=== PATIENT | male | born 1945 | race Caucasian/White ===

== ENCOUNTER 2017-04-23 19:20 | Emergency (ER) | payer MEDICARE, BC ==
[~2017-04-23] VITALS: Ht 172.7 cm; Wt 67.3 kg
[2017-04-23 19:30] VITALS: BP 174/115; PULSE 75; RESP 20; TEMP 97.1
[2017-04-23 19:32] VITALS: Ht 172.7 cm; Wt 67.3 kg
--- NOTE | 2017-04-23 19:42 | ERD ---
ER Documentation Chief Complaint Chief Complaint SOB HPI This is a 71-year-old male with a past medical history of Parkinson's plus syndrome and multisystem atrophy who is presenting with shortness of breath, cough, congestion for several days. The patient does have a history of recurrent infectious bronchitis requiring antibiotic therapy. He does have a nebulizer at home to help with his respirations. The nebulized treatments were attempted at home without significant relief, which is what prompted the family to bring the patient in for further evaluation. The patient and his caregiver do not endorse any fever or chills or myalgias. The patient does have chronic pain, but he refuses narcotic pain medication. Secondary to his disease process , he does have dysphagia status post G-tube placement. He receives CDP oil via the G-tube. The patient is also unable to void on his own and has a suprapubic catheter. There is no obvious evidence of soft tissue or skin infection around the sites. ROS All systems reviewed and are negative except as per history of present illness. Medications Home Meds Reported Medications Aspirin* (Aspirin* EC) 81 Mg Tablet.dr, 81 MG PO DAILY, TAB 04/23/17 Simvastatin* (Zocor*) 10 Mg Tablet, 10 MG PO QHS, #30 TAB 04/23/17 Entacapone* (Entacapone*) 200 Mg Tablet, 200 MG PO QID, TAB TAKE QID WITH CARBIDOPA/LEVODOPA 04/23/17 Carbidopa/Levodopa (CARBIDOPA-LEVO 25-100 MG ODT) 1 Each Tab.rapdis, 2 TAB PO QID, #120 TAB take 2+1/2 tab-10am, 2tab-2pm, 2+1/2 tab-6pm, 2tab-10pm 04/23/17 Allergies Allergies: Coded Allergies: clonidine (Verified Allergy, Unknown, 04/23/17) PMhx/Soc History of Surgery: Yes (G tube, Suprapubic catheter, back surgery) Anesthesia Reaction: No Hx Neurological Disorder: Yes (Parkinson's plus disease, Multi-system atrophy) Hx Cardiac Disorders: No Hx Psychiatric Problems: No Hx Miscellaneous Medical Probl: No Hx Alcohol Use: No Hx Substance Use: Yes (CBD oil for pain management) Hx Tobacco Use: No FmHx Family History: No coronary disease, No diabetes Physical Exam Vitals Vital Signs Date Time Temp Pulse Resp B/P Pulse Ox O2 Delivery O2 Flow Rate FiO2 04/23/17 20:45 96 2.0 04/23/17 20:44 89 22 96 2.0 04/23/17 19:32 97.7 92 24 167/127 100 04/23/17 19:30 Nasal Cannula 3.0 04/23/17 19:30 Nasal Cannula 3 04/23/17 19:30 97.1 75 20 174/115 94 Room Air Physical Exam Const: No apparent distress, well-developed, well-nourished Head: Normocephalic, Atraumatic Eyes: Normal Conjunctiva. Extraocular movements intact. Pupils equal, round and reactive to light ENT: Normal External Ears, Nose and Mouth. Chronic spasm of his masseter muscles, so oropharynx could not be evaluated. Neck: Full range of motion. No meningismus. Resp: Coarse breath sounds bilaterally, no hypoxia, no tachypnea. no wheezes or rales. Cardio: Regular rate and rhythm. No murmurs, rubs or gallops Abd: Soft, non tender, non distended. Normal bowel sounds. G-tube and suprapubic catheter placement without evidence of infection. No erythema or induration or purulence or fluctuance around the sites. Skin: No petechiae or rashes. Back: No midline tenderness. No CVA tenderness. Ext: No cyanosis, or edema. Neur: Awake and alert. No facial droop. Spastic paresis of all extremities. Result Diagram: 04/23/17205404/23/172054 Results 24 hrs Laboratory Tests Test 04/23/17 20:55 White Blood Count 10.910^3/ul Red Blood Count 4.9910^6/ul Hemoglobin 16.4g/dl Hematocrit 48.3% Mean Corpuscular Volume 96.8fl Mean Corpuscular Hemoglobin 32.9pg Mean Corpuscular Hemoglobin Concent 34.0g/dl Red Cell Distribution Width 13.1% Platelet Count 30620^3/UL Mean Platelet Volume 10.1fl Neutrophils % 88.1% Lymphocytes % 5.3% Monocytes % 4.6% Eosinophils % 1.6% Basophils % 0.2% Nucleated Red Blood Cells % 0.0/100WBC Neutrophils # 9.610^3/ul Lymphocytes # 0.610^3/ul Monocytes # 0.510^3/ul Eosinophils # 0.210^3/ul Basophils # 0.010^3/ul Nucleated Red Blood Cells # 0.010^3/ul Prothrombin Time 13.1Sec Prothrombin Time Ratio 1.0 INR International Normalized Ratio 0.98 Activated Partial Thromboplast Time 32.4Sec Sodium Level 142mmol/L Potassium Level 4.0mmol/L Chloride Level 96mmol/L Carbon Dioxide Level 38mmol/L Anion Gap 12 Blood Urea Nitrogen 20mg/dl Creatinine 0.67mg/dl Glucose Level 102mg/dl Calcium Level 9.5mg/dl Troponin I < 0.012ng/ml Current Medications Medications (Trade) Dose Ordered Sig/Diane Route PRN Reason Start Time Stop Time Status Last Admin Dose Admin Sodium Chloride (NS) 1,000 ml @ 1,000 mls/hr Q1H STAT IV 04/23/17 20:00 04/23/17 20:59 DC 04/23/17 20:00 Ipratropium [place] (Atrovent 0.02% (Neb)) 1.5 mg ONCE STAT INH 04/23/17 20:00 04/23/17 20:02 DC 04/23/17 20:43 Albuterol 15 mg 15 mg ONCE STAT INH 04/23/17 20:00 04/23/17 20:02 DC 04/23/17 20:43 Azithromycin (Zithromax 500mg/ NS (Pmx)) 250 ml @ 250 mls/hr ONCE ONCE IVPB 04/23/17 23:30 04/24/17 00:29 Procedures/MDM MDM The patient's presentation warrants further investigation. The patient has a history of recurrent bronchitis this is certainly a possibility today. The patient is afebrile. He is not tachycardic or tachypneic or hypoxic. The patient does have coarse breath sounds bilaterally, but there is no focality to his exam. This is reassuring. I do not hear obvious wheezing, but the patient may benefit from nebulized albuterol and ipratropium. I will evaluate for an infectious etiology. The patient is not ambulatory at baseline, but his exam and vital signs are not consistent with pulmonary embolism. I have decreased suspicion for this at this time. LABS The patient's blood work was obtained and reviewed. The patient's CBC shows mild leukocytosis and left shift. The patient is afebrile and does not appear systemically ill. I do not suspect a systemic infection. That said, I am still suspicious of an infectious etiology of his symptoms. The patient is not anemic today. The patient's platelet count is unremarkable. The patient's BMP shows no signs of metabolic or electrolyte emergencies. The patient does have a metabolic alkalosis, likely compensatory to respiratory acidosis from his chronic pulmonary comorbidities. The patient has unremarkable renal function testing. The patient's troponin is negative. EKG EKG read by me: Rate/Rhythm: Regular rate and rhythm at a rate of 90bpm Intervals: Normal OH interval and QTc. Prolonged QRS duration with evidence of a right bundle branch block. [place]: Normal Impression: Nonspecific repolarization changes without evidence of acute STEMI. Right bundle branch block. IMAGING CXR FINDINGS: The heart is normal in size. There are low lung volumes with mild bibasilar subsegmental atelectasis. No focal consolidation, pleural effusions, or pneumothorax is seen. Degenerative changes of the spine and shoulder joints are present. IMPRESSION: Low lung volumes with mild bibasilar subsegmental atelectasis. Electronically viewed and signed by Nba Neves Physician on 04/23/2017 20:54 TREATMENT/DISPOSITION I am suspicious of bronchitis versus atypical pneumonia in this patient. I do intend to treat as he does have a tendency for recurrence of infectious pulmonary symptoms. The patient has significant comorbidities that increase the risk of severe illness. I also intend to fill a prescription for azithromycin to be taken as prescribed as well as albuterol that the patient may take as needed at home for shortness of breath or wheezing. I discussed with the family the possibility of admission. The patient is chronically ill and is serially evaluated by palliative care. The family would like him to go home as it is more comfortable for him there. She had decision-making was enacted, and I felt that it was okay for the patient to go home with close follow-up. The patient will see his primary care doctor tomorrow morning. At this time, I feel the patient stable for discharge. The patient will be given strict precautions with which to return to the emergency department. The patient's blood pressure was elevated at greater than 120/80 while in the emergency department. The patient was otherwise stable with no evidence of hypertensive urgency or emergency or end organ damage. The patient does not require admission for blood pressure control. I have discussed with the patient the risks of hypertension. I have advised the patient to follow up with the primary care physician for outpatient monitoring and treatment for hypertension in 2-3 days. I have instructed the patient to return to the ER for any new or worsening symptoms including chest pain, shortness of breath, headache, blurred vision, confusion, nausea, vomiting or LOC. Disclaimer: Inadvertent spelling and grammatical errors are likely due to EHR/ dictation software use and do not reflect on the overall quality of patient care. Note that the electronic time recorded on this note does not necessarily reflect the actual time of the patient encounter. Departure Diagnosis: Primary Impression: Bronchitis Additional Impressions: Shortness of breath Elevated blood pressure reading Metabolic alkalosis Condition: Stable ROBERT MORENO MD Apr 23, 2017 19:42
[2017-04-23] MEDS ORDERED: ALBUTEROL 0.5% (NEB) 2.5 MG/0.5 ML AMP INH STA (20:00)
[2017-04-23] MEDS ORDERED: SOD CHLORIDE 0.9% 1,000 ML IV STA (20:00)
[2017-04-23] MEDS ORDERED: IPRATROPIUM (NEB) 0.5 MG/2.5 ML AMP INH STA (20:00)
[2017-04-23] MEDS ORDERED: CARB1TAB46 PO (20:50)
[2017-04-23] MEDS ORDERED: ENTA200T2 PO (20:51)
[2017-04-23] MEDS ORDERED: ASPI-664 PO (20:52)
[2017-04-23] MEDS ORDERED: SIMV10TA PO (20:52)
--- NOTE | 2017-04-23 20:54 | RADRPT ---
PROCEDURE: XR Chest. CLINICAL INDICATION: Shortness of breath. TECHNIQUE: Single frontal view of the chest was obtained COMPARISON: None FINDINGS: The heart is normal in size. There are low lung volumes with mild bibasilar subsegmental atelectasis. No focal consolidation, ple ural effusions, or pneumothorax is seen. Degenerative changes of the spine and shoulder joints are present. IMPRESSION: 1. Low lung volumes with mild bibasilar subsegmental atelectasis. RPTAT:AAJJ Physician Pamela Date Time Electronically viewed and signed by Nba Neves Physician on 04/23/2017 20:54 QL/
[2017-04-23 21:15] LABS: ABNORMAL IP MESSAGE 1; BASOPHILS % 0.2 % (0.0-2.0); EOSINOPHILS # 0.2 10^3/ul (0.0-0.5); EOSINOPHILS % 1.6 % (0.0-7.0); HEMATOCRIT 48.3 % (42.0-52.0); HEMOGLOBIN 16.4 g/dl (14.0-18.0); LYMPHOCYTES # 0.6 10^3/ul (0.8-2.9); LYMPHOCYTES % 5.3 % (15.0-51.0); MEAN CORPUSCULAR HEMOGLOBIN 32.9 pg (29.0-33.0); MEAN CORPUSCULAR VOLUME 96.8 fl (82.0-101.0); MEAN PLATELET VOLUME 10.1 fl (7.4-10.4); MONOCYTE # 0.5 10^3/ul (0.3-0.9); MONOCYTES % 4.6 % (0.0-11.0); NEUTROPHIL # 9.6 10^3/ul (1.6-7.5); NEUTROPHILS % 88.1 % (39.0-77.0); PLATELET COUNT 172 10^3/UL (140-415); POSITIVE DIFF @See below; RED BLOOD COUNT 4.99 10^6/ul (4.70-6.10); RED CELL DISTRIBUTION WIDTH 13.1 % (11.5-14.5); WHITE BLOOD COUNT 10.9 10^3/ul (4.8-10.8)
[2017-04-23 21:39] LABS: INR 0.98; PROTIME 13.1 Sec (11.9-14.9)
[2017-04-23 21:40] LABS: PARTIAL THROMBOPLASTIN TIME 32.4 Sec (25.0-35.0)
[2017-04-23 21:42] LABS: ANION GAP 12 (8-16); BLOOD UREA NITROGEN 20 mg/dl (7-20); CALCIUM 9.5 mg/dl (8.4-10.2); CARBON DIOXIDE 38 mmol/L (21-31); CHLORIDE 96 mmol/L (97-110); CREATININE 0.67 mg/dl (0.61-1.24); GLUCOSE 102 mg/dl (70-220); SODIUM 142 mmol/L (135-144)
[2017-04-23 22:03] LABS: TROPONIN-I < 0.012 ng/ml (0.00-0.12)
[2017-04-23] MEDS ORDERED: AZITHROMYCIN 500MG/NS (PMX) 250 ML IVPB ONE (23:30)
[2017-04-23] MEDS ORDERED: AZIT250T94 PO (23:39)
[2017-04-23] MEDS ORDERED: ALBU2.5V3 NEB (23:39)
== END 2017-04-24 00:30 | disposition home or self-care (01) ==
LOC: E/R 19:20
DX: J40 Bronchitis, not specified as acute or chronic (principal); E87.3 Alkalosis; R03.0 Elevated blood-pressure reading, without diagnosis of hypertension; G20 Parkinson's disease; Z79.82 Long term (current) use of aspirin
CPT/HCPCS: 36415; 71010; 80048; 84484; 85025; 85610; 85730; 87040; 93005; 94644; 96374; 99285; J0456; J7030

== ENCOUNTER 2017-04-25 13:02 | Inpatient (IN) | END 2017-05-02 16:34 | disposition home health service (06) | DRG 871 ==

== ENCOUNTER 2018-07-17 14:56 | Inpatient (IN) | payer MEDICARE, BC ==
[~2018-07-17] VITALS: Ht 172.7 cm; Wt 67.9 kg
[~2018-07-17 14:56] MED LIST: ALBU2.5V3 NEB; ASC500 NGT; ASPI-817 PO; CARB1TAB46 PO; ENTA200T2 PO; FAMO20TA18 GTB; LISI10TA2 PO; POLY17PO6 GTB; SIMV10TA PO; UDFER GTB
[2018-07-17] MEDS ORDERED: ALBUTEROL 0.083% (NEB) 2.5 MG/3 ML AMP HHN STA (15:45)
[2018-07-17] MEDS ORDERED: IPRATROPIUM (NEB) 0.5 MG/2.5 ML AMP HHN ONE (16:00)
[2018-07-17] MEDS ORDERED: ASPI-817 GTB (17:23)
[2018-07-17] MEDS ORDERED: CARB1TAB46 GTB (17:23)
[2018-07-17] MEDS ORDERED: ENTA200T2 GTB (17:24)
[2018-07-17] MEDS ORDERED: ALBU2.5V3 NEB (17:26)
[2018-07-17] MEDS ORDERED: GLYC1TAB GTB (17:27)
[2018-07-17] MEDS ORDERED: BACL10TA GTB (17:29)
[2018-07-17] MEDS ORDERED: POLY17PO6 GTB (17:30)
[2018-07-17] MEDS ORDERED: ONDANSETRON 4 MG INJ IV PRN (17:30)
[2018-07-17] MEDS ORDERED: ACETAMINOPHEN 325 MG TAB PO PRN (17:30)
[2018-07-17] MEDS ORDERED: IBUP-1982 GTB (17:31)
[2018-07-17] MEDS ORDERED: ROTI1PAT7 TD (17:31)
[2018-07-17] MEDS ORDERED: VITAMIN C GTB (17:33)
--- NOTE | 2018-07-17 17:59 | HP ---
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 respiratory failure who presents with resipratory distress and hypoxia - We will obtain CT to further assess whether pneumonia is present or not - I suspect this is from aspiration, needs frequent suctioning and chest PT - Will start zosyn and steroids for now -- BIPAP for chornic respiratory failure - Pulmonary consult - Tube feeds DNR/DNI Result Diagram: 07/17/18 1555 07/17/18 1555 Results 24hrs Laboratory Tests Test 07/17/18 15:39 07/17/18 15:55 07/17/18 16:20 POC Venous Lactate 1.3 White Blood Count 8.3 Red Blood Count 4.48 L Hemoglobin 14.2 Hematocrit 43.2 Mean Corpuscular Volume 96.4 Mean Corpuscular Hemoglobin 31.7 Mean Corpuscular 32.9 Hemoglobin Concent Red Cell Distribution Width 13.5 Platelet Count 255 # Mean Platelet Volume 11.4 H Immature Granulocytes % 0.400 Neutrophils % 82.2 H Lymphocytes % 8.4 L Monocytes % 6.3 Eosinophils % 2.2 Basophils % 0.5 Nucleated Red Blood Cells % 0.0 Immature Granulocytes # 0.030 Neutrophils # 6.8 Lymphocytes # 0.7 L Monocytes # 0.5 Eosinophils # 0.2 Basophils # 0.0 Nucleated Red Blood Cells # 0.0 Prothrombin Time 12.8 Prothrombin Time Ratio 1.0 INR International 0.95 Normalized Ratio Activated Partial Thromboplast 34.3 Time Sodium Level 141 Potassium Level 4.1 Chloride Level 99 Carbon Dioxide Level 36 H Anion Gap 6 Blood Urea Nitrogen 19 Creatinine 0.56 L Est Glomerular Filtrat Rate mL/min Glucose Level 110 Calcium Level 9.6 Total Bilirubin 0.5 Direct Bilirubin 0.00 Indirect Bilirubin 0.5 Aspartate Amino 42 Transf (AST/SGOT) Alanine 13 Aminotransferase (ALT/SGPT) Alkaline Phosphatase 183 H Troponin I < 0.012 Total Protein 7.3 Albumin 4.0 Globulin 3.30 H Albumin/Globulin Ratio 1.21 Urine Color AURA Urine Clarity SLIGHTLY CLOUDY A Urine pH 5.0 Urine Specific [place] 1.032 H Urine Ketones TRACE A Urine Nitrite NEGATIVE Urine Bilirubin NEGATIVE Urine Urobilinogen NEGATIVE Urine Leukocyte Esterase 1+ H Urine Microscopic RBC 69 H Urine Microscopic WBC 69 H Urine Bacteria FEW A Urine Hyaline Casts FEW A Urine Mucus MANY A Urine Hemoglobin NEGATIVE Urine Glucose NEGATIVE Urine Total Protein 2+ H HPI/ROS Admit Date/Time Admit Date/Time Hx of Present Illness 72 yo male with 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 Fed via PEG. Family and caregivers noticed worsening breathing todya. Also have noticed worsenign hypoxia on home pulse ox. 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 They deny fevers. He is producing some phlegm. Scant hemotypsis as well. ROS Constitutional: no complaints, improved Eyes: no complaints ENT: no complaints Respiratory: no complaints Cardiovascular: no complaints Gastrointestinal: no complaints Genitourinary: no complaints Musculoskeletal: no complaints Skin: no complaints Neurologic: no complaints Endocrine: no complaints Lymphatic: no complaints Psychological: no complaints, nl mood/affect Immunologic: no complaints PMH/Family/Social Past Medical History Multisystem atrophy Medications Current Medications Ondansetron HCl (Zofran Inj) 4 mg ER BRIDGE PRN IV NAUSEA/VOMITING; Start 07/17/18 at 17:30; Stop 07/18/18 at 17:29 Acetaminophen (Tylenol Tab) 650 mg ER BRIDGE PRN PO .MILD PAIN 1-3 OR TEMP; Start 07/17/18 at 17:30; Stop 07/18/18 at 17:29 Coded Allergies: clonidine (Verified Allergy, Unknown, 07/17/18) Past Surgical History Past Surgical Hx: no surgical history Family History Significant Family History: no pertinent family hx Social History Alcohol Use: none Smoking Status: Former smoker Drug Use: none Exam/Review of Systems Vital Signs Vitals Vital Signs Date Temp Pulse Resp B/P (MAP) Pulse Ox O2 O2 Flow FiO2 Time Delivery Rate 07/17/18 92 20 95 Nasal 3.0 16:15 Cannula 07/17/18 97.1 143/71 14:58 (95) Exam Exam Alert Nonverbal No response to my commands Slightly tachypneic, nonlabored Audibly gurgling his secretions Lungs rhoncorous bilaterally RRR Abdomen with PEG Suprapubic catheter No edema MILGROM,DEVORA K MD Jul 17, 2018 17:59
[2018-07-17] MEDS ORDERED: NACL 0.9% 3 ML SYG IV SCH (18:00)
[2018-07-17] MEDS ORDERED: IOHEXOL 100 ML ONE (18:03)
[2018-07-17] MEDS ORDERED: SOD CHLORIDE 0.9% 100 ML ONE (18:03)
[2018-07-17] MEDS ORDERED: IBUPROFEN 200 MG TAB GTB PRN (18:30)
[2018-07-17] MEDS ORDERED: POLYETHYLENE GLYCOL 17 GM PACKET GTB PRN (18:30)
[2018-07-17] MEDS ORDERED: ALBUTEROL 0.083% (NEB) 2.5 MG/3 ML AMP NEB PRN (18:30)
--- NOTE | 2018-07-17 19:18 | ERD ---
ER Documentation Chief Complaint Chief Complaint sob today HPI Patient is a 72-year-old male with Parkinson's disease and COPD who presents with shortness of breath. Over the past 1 week he has gotten worse and has "rales and crackles". He was recently started on a Z-Lul. He saw Dr. Rivers from pulmonology today and was sent from the office for admission. He is not using home oxygen at night but now is hypoxic and requires supplemental oxygen. He does use BiPAP at night. He has no fevers. He is a DNR/DNI per the family. Upon review of old medical records this is the patient's third visit to the ER since 2017. ROS All systems reviewed and are negative except as per history of present illness. Medications Home Meds Reported Medications [Vitamin C] No Conflict Check, 1000 MG GTB DAILY 07/17/18 Ibuprofen* (Ibuprofen*) 200 Mg Capsule, 800 MG GTB QHS PRN for PAIN, CAP 07/17/18 Rotigotine (NEUPRO) 1 Each Patch.td24, 1 EACH TD DAILY 6MG 07/17/18 Polyethylene Glycol* (Miralax*) 17 Gm Powd.pack, 8.5 GM GTB DAILY PRN for NEEDED, #30 PACKET 07/17/18 Baclofen* (Baclofen*) 10 Mg Tablet, 10 MG GTB TID, TAB TAKE 5MG-QAM AND 5MG-QPM, 15MG-QHS 07/17/18 Glycopyrrolate* (Glycopyrrolate*) 1 Mg Tablet, 1 MG GTB BID, TAB 07/17/18 Albuterol Sulfate* (Albuterol Sulfate* Neb) 0.083%-3 Ml Neb, 2.5 MG NEB Q3H PRN for WHEEZING AND SOB, #30 VIAL 07/17/18 Entacapone* (Entacapone*) 200 Mg Tablet, 200 MG GTB QID, TAB 07/17/18 Aspirin* (Aspirin* EC) 81 Mg Tablet., 81 MG GTB DAILY, TAB 07/17/18 Carbidopa/Levodopa (CARBIDOPA-LEVO 25-100 MG ODT) 1 Each Tab.rapdis, 2.5 TAB GTB BID, #90 TAB 10-AM AND 6-PM 07/17/18 Carbidopa/Levodopa (CARBIDOPA-LEVO 25-100 MG ODT) 1 Each Tab.rapdis, 2 TAB GTB BID, #120 TAB 2-PM AND 10-PM 07/17/18 Discontinued Reported Medications Aspirin* (Aspirin* EC) 81 Mg Tablet.dr, 81 MG PO DAILY, TAB 04/23/17 Simvastatin* (Zocor*) 10 Mg Tablet, 10 MG PO QHS, #30 TAB 04/23/17 Entacapone* (Entacapone*) 200 Mg Tablet, 200 MG PO QID, TAB TAKE QID WITH CARBIDOPA/LEVODOPA 04/23/17 Carbidopa/Levodopa (CARBIDOPA-LEVO 25-100 MG ODT) 1 Each Tab.rapdis, 2 TAB PO QID, #120 TAB take 2+1/2 tab-10am, 2tab-2pm, 2+1/2 tab-6pm, 2tab-10pm 04/23/17 Discontinued Scripts Ascorbic Acid (Vitamin C) 500 Mg Tab, 500 MG NGT DAILY, #30 TAB 2 Refills Prov:MILLICENT MELGAR S. 05/02/17 Polyethylene Glycol* (Miralax*) 17 Gm Powd.pack, 8.5 GM GTB DAILY, #30 2 Refills Prov:MILLICENT MELGAR S. 05/02/17 Famotidine* (Famotidine*) 20 Mg Tablet, 20 MG GTB HS, #30 TAB 2 Refills Prov:MILLICENT MELGAR S. 05/02/17 Ferrous Sulfate (Ferrous Sulfate) 300 Mg/5 Ml Liquid, 300 MG GTB DAILY for 30 Days, 2 Refills Prov:MILLICENT MELGAR S. 05/02/17 Lisinopril* (Lisinopril*) 10 Mg Tablet, 10 MG PO DAILY, #30 TAB 2 Refills Prov:MILLICENT MELGAR S. 05/02/17 Albuterol Sulfate* (Albuterol Sulfate* Neb) 0.083%-3 Ml Neb, 2.5 MG NEB Q4 PRN for SHORTNESS OF BREATH, #30 EA Prov:ROBERT MORENO MD 04/23/17 Allergies Allergies: Coded Allergies: clonidine (Verified Allergy, Unknown, 07/17/18) PMhx/Soc History of Surgery: No Anesthesia Reaction: No Hx Neurological Disorder: Yes (PARKINSONS) Hx Respiratory Disorders: Yes Hx Cardiac Disorders: No Hx Psychiatric Problems: No Hx Miscellaneous Medical Probl: Yes (G-TUBE, Suprapubic catheter) Hx Substance Use: No Smoking Status: Former smoker FmHx Family History: No diabetes Physical Exam Vitals Vital Signs Date Temp Pulse Resp B/P (MAP) Pulse Ox O2 O2 Flow FiO2 Time Delivery Rate 07/17/18 92 20 95 Nasal 3.0 16:15 Cannula 07/17/18 Nasal 2 16:01 Cannula 07/17/18 97.1 87 28 143/71 96 14:58 (95) Physical Exam Const: Moderate distress Head: Atraumatic Eyes: Normal Conjunctiva ENT: Difficulty with opening mouth Neck: Full range of motion. No meningismus. Resp: Rhonchorous sounds diffusely Cardio: Regular rate and rhythm, no murmurs Abd: Soft, non tender, non distended. Normal bowel sounds Skin: Pale skin Back: No midline or flank tenderness Ext: No cyanosis, or edema Neur: Awake but confused Result Diagram: 07/17/18 1555 07/17/18 1555 Results 24 hrs Laboratory Tests Test 07/17/18 15:39 07/17/18 15:55 07/17/18 16:20 POC Venous Lactate 1.3 mmol/L White Blood Count 8.3 10^3/ul Red Blood Count 4.48 10^6/ul Hemoglobin 14.2 g/dl Hematocrit 43.2 % Mean Corpuscular Volume 96.4 fl Mean Corpuscular Hemoglobin 31.7 pg Mean Corpuscular 32.9 g/dl Hemoglobin Concent Red Cell Distribution Width 13.5 % Platelet Count 255 10^3/UL Mean Platelet Volume 11.4 fl Immature Granulocytes % 0.400 % Neutrophils % 82.2 % Lymphocytes % 8.4 % Monocytes % 6.3 % Eosinophils % 2.2 % Basophils % 0.5 % Nucleated Red Blood Cells % 0.0 /100WBC Immature Granulocytes # 0.030 10^3/ul Neutrophils # 6.8 10^3/ul Lymphocytes # 0.7 10^3/ul Monocytes # 0.5 10^3/ul Eosinophils # 0.2 10^3/ul Basophils # 0.0 10^3/ul Nucleated Red Blood Cells # 0.0 10^3/ul Prothrombin Time 12.8 Sec Prothrombin Time Ratio 1.0 INR International 0.95 Normalized Ratio Activated Partial Thromboplast 34.3 Sec Time Sodium Level 141 mmol/L Potassium Level 4.1 mmol/L Chloride Level 99 mmol/L Carbon Dioxide Level 36 mmol/L Anion Gap 6 Blood Urea Nitrogen 19 mg/dl Creatinine 0.56 mg/dl Est Glomerular Filtrat mL/min Rate mL/min Glucose Level 110 mg/dl Calcium Level 9.6 mg/dl Total Bilirubin 0.5 mg/dl Direct Bilirubin 0.00 mg/dl Indirect Bilirubin 0.5 mg/dl Aspartate Amino 42 IU/L Transf (AST/SGOT) Alanine 13 IU/L Aminotransferase (ALT/SGPT) Alkaline Phosphatase 183 IU/L Troponin I < 0.012 ng/ml Total Protein 7.3 g/dl Albumin 4.0 g/dl Globulin 3.30 g/dl Albumin/Globulin Ratio 1.21 Urine Color AURA Urine Clarity SLIGHTLY CLOUDY Urine pH 5.0 Urine Specific [place] 1.032 Urine Ketones TRACE mg/dL Urine Nitrite NEGATIVE mg/dL Urine Bilirubin NEGATIVE mg/dL Urine Urobilinogen NEGATIVE mg/dL Urine Leukocyte Esterase 1+ [place]/ul Urine Microscopic RBC 69 /HPF Urine Microscopic WBC 69 /HPF Urine Bacteria FEW /HPF Urine Hyaline Casts FEW /HPF Urine Mucus MANY /HPF Urine Hemoglobin NEGATIVE mg/dL Urine Glucose NEGATIVE mg/dL Urine Total Protein 2+ mg/dl Current Medications Medications Dose Sig/Diane Start Time Status Last (Trade) Ordered Route PRN Stop Time Admin Dose Reason Admin Albuterol 5 mg ONCE STAT 07/17/18 DC 07/17/18 (Proventil HHN 15:45 16:12 0.083% (Neb)) 07/17/18 15:46 Ipratropium 0.5 mg ONCE ONCE 07/17/18 DC 07/17/18 [place] HHN 16:00 16:12 (Atrovent 07/17/18 16:01 0.02% (Neb)) Ondansetron 4 mg ER BRIDGE 07/17/18 HCl (Zofran PRN IV 17:30 Inj) NAUSEA/VOMITI 07/18/18 17:29 NG 650 mg ER BRIDGE 07/17/18 Acetaminophen PRN PO 17:30 (Tylenol .MILD PAIN 07/18/18 17:29 Tab) 1-3 OR TEMP IV Flush 3 ml PER 07/17/18 (NS 3 ml) PROTOCOL IV 18:00 Enoxaparin 40 mg DAILY SC 07/18/18 Sodium 09:00 (Lovenox) Piperacillin 100 ml @ Q8 IVPB 07/17/18 Sod/ 200 mls/hr 22:00 Tazobactam Sod 20 mg Q8 IV 07/17/18 Methylprednis 22:00 olone Sodium Succinate (Solu-Medrol) IV Flush 10 ml STK-MED 07/17/18 DC (NS 10 ml) ONCE .ROUTE 18:03 07/17/18 18:04 Sodium 100 ml @ ud STK-MED 07/17/18 DC Chloride ONCE .ROUTE 18:03 07/17/18 18:04 Iohexol 100 ml @ ud STK-MED 07/17/18 DC ONCE .ROUTE 18:03 07/17/18 18:04 Albuterol 2.5 mg Q3H RESP 07/17/18 (Proventil THERAPY PRN 18:30 0.083% (Neb)) NEB WHEEZING AND SOB Baclofen 10 mg TID GTB 07/17/18 (Lioresal) 21:00 Entacapone 200 mg QID GTB 07/17/18 (Comtan) 21:00 1 mg BID GTB 07/17/18 Glycopyrrolat 21:00 e (Robinul) Ibuprofen 800 mg QHS PRN 07/17/18 (Motrin) GTB PAIN 18:30 8.5 gm DAILY PRN 07/17/18 Polyethylene GTB 18:30 Glycol NEEDED (Miralax) 2 tab BID GTB 07/17/18 UNV Miscellaneous 21:00 Information 2.5 tab BID GTB 07/17/18 UNV Miscellaneous 21:00 Information 1 each DAILY TD 07/18/18 UNV Miscellaneous 09:00 Information 2.5 tab 07/18/18 Carbidopa/Lev BID@1000,1800 10:00 odopa GTB (Sinemet (25/ 100)) 2 tab 07/17/18 Carbidopa/Lev BID@1400,2200 22:00 odopa GTB (Sinemet (25/ 100)) Procedures/MDM Chest X-ray 1V Interpreted by me: Soft Tissue: No acute abnormalities Bones: No acute abnormalities Mediastinum/Cardiac Silhouette/Lungs: No pneumonia or pneumothorax EKG read by me: Rate/Rhythm: Right bundle branch block a rate of 90 Intervals: Normal Impression: Bundle branch block without ischemia Patient is a 72-year-old male who presents with hypoxia and hemoptysis. He was found to have acute cystitis as well. There is no obvious sign of pneumonia or pneumothorax but he may need further evaluation while admitted. Spoke with the panel team for admission to a telemetry bed. At this point I doubt sepsis. The patient was given broad-spectrum antibiotics with Vancomycin and cefepime. The patient is a DNR/DNI. Prognosis is poor given his age and comorbidities. Critical Care: Time: 35 minutes excluding all billable procedures. Treatments/Evaluations: Close monitoring and treatment of unstable vital signs, cardiorespiratory, and neurologic status, while maintaining tight balance of fluid, respiratory, and cardiac interventions. Departure Diagnosis: Primary Impression: Cystitis Additional Impressions: Shortness of breath Hemoptysis Hypoxia Condition: Serious HALEY MOORE MD Jul 17, 2018 19:18
[2018-07-17] MEDS ORDERED: CARBIDOPA GTB SCH ×2 (21:00)
[2018-07-17] MEDS: GLYCOPYRROLATE 1 MG TAB GTB SCH (21:00)
[2018-07-17] MEDS ORDERED: BACLOFEN 10 MG TAB GTB SCH (21:00)
[2018-07-17] MEDS ORDERED: [UNRECOGNIZED DRUG - OTHER] GTB SCH (21:00)
[2018-07-17] MEDS ORDERED: LEVODOPA GTB SCH ×2 (21:00)
[2018-07-17 22:00] VITALS: Ht 172.7 cm; Wt 67.9 kg
[2018-07-17 22:17] VITALS: PULSE 96
[2018-07-17 22:30] VITALS: BP 118/66; PULSE 97; RESP 18
[2018-07-17] MEDS: METHYLPREDNISOLONE 40 MG INJ IV SCH (23:44)
[2018-07-17] MEDS: CARBIDOPA/LEVODOPA (25/100) TAB GTB SCH (23:47)
[2018-07-17] MEDS: ENTACAPONE 200 MG TAB GTB SCH (23:47)
[2018-07-18] VITALS (21 sets, daily range): BP systolic 85–122; BP diastolic 54–70; PULSE 61–87; RESP 17–18
[2018-07-18] MEDS: PIPER-TAZO 3.375 GM IV (PMX) 100 ML IVPB SCH ×4 (00:21→21:55)
[2018-07-18] MEDS: IBUPROFEN 800 MG TAB GTB PRN (00:22)
[2018-07-18] MEDS: METHYLPREDNISOLONE 40 MG INJ IV SCH ×3 (05:18→21:53)
[2018-07-18] MEDS ORDERED: PENDING SANTYL ORDER FOR WOUND CARE XX PRN (08:00)
[2018-07-18] MEDS: BACLOFEN 10 MG TAB GTB SCH ×4 (09:00→22:07)
[2018-07-18] MEDS: GLYCOPYRROLATE 1 MG TAB GTB SCH ×2 (09:00→22:06)
[2018-07-18] MEDS: ROTIGOTINE TRANSDERM SCH (09:00)
[2018-07-18] MEDS: CARBIDOPA/LEVODOPA (25/100) TAB GTB SCH ×4 (09:54→21:54)
[2018-07-18] MEDS: ENTACAPONE 200 MG TAB GTB SCH ×4 (09:54→21:55)
[2018-07-18] MEDS: ENOXAPARIN 40 MG/0.4 ML SYG SC SCH (10:14)
--- NOTE | 2018-07-18 12:09 | PN ---
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 who presents with resipratory distress and hypoxia - CT suggests possible bacterial pneumoina will continue zosyn and steroids IV - I suspect this is from aspiration, needs frequent suctioning and chest PT -- BIPAP if needed for chornic hypercpeneic respiratory failure, however this will make aspiration worse - Pulmonary consulted - Tube feeds Multisystems atrophy vs Parkinsons (unclear diagonsis) - continue home meds with entacapone, sinemet DNR/DNI Result Diagram: 07/18/18 0535 07/18/18 0535 Results 24hrs Laboratory Tests Test 07/17/18 15:39 07/17/18 15:55 07/17/18 16:20 07/17/18 21:07 POC Venous 1.3 Lactate White Blood 8.3 Count Red Blood Count 4.48 L Hemoglobin 14.2 Hematocrit 43.2 Mean Corpuscular 96.4 Volume Mean Corpuscular 31.7 Hemoglobin Mean Corpuscular 32.9 Hemoglobin Griselda nt Red Cell 13.5 Distribution Width Platelet Count 255 # Mean Platelet 11.4 H Volume Immature 0.400 Granulocytes % Neutrophils % 82.2 H Lymphocytes % 8.4 L Monocytes % 6.3 Eosinophils % 2.2 Basophils % 0.5 Nucleated Red 0.0 Blood Cells % Immature 0.030 Granulocytes # Neutrophils # 6.8 Lymphocytes # 0.7 L Monocytes # 0.5 Eosinophils # 0.2 Basophils # 0.0 Nucleated Red 0.0 Blood Cells # Prothrombin Time 12.8 Prothrombin Time 1.0 Ratio INR 0.95 International Normalized Ratio Activated 34.3 Partial Thrombop last Time Sodium Level 141 Potassium Level 4.1 Chloride Level 99 Carbon Dioxide 36 H Level Anion Gap 6 Blood Urea 19 Nitrogen Creatinine 0.56 L Est Glomerular Filtrat Rate mL/min Glucose Level 110 Calcium Level 9.6 Total Bilirubin 0.5 Direct Bilirubin 0.00 Indirect 0.5 Bilirubin Aspartate Amino 42 Transf (AST/SGOT ) Alanine 13 Aminotransferase (ALT/SGPT) Alkaline 183 H Phosphatase Troponin I < 0.012 Total Protein 7.3 Albumin 4.0 Globulin 3.30 H Albumin/Globulin 1.21 Ratio Urine Color AURA Urine Clarity SLIGHTLY CLOUDY A Urine pH 5.0 Urine Specific 1.032 H Eagle Urine Ketones TRACE A Urine Nitrite NEGATIVE Urine Bilirubin NEGATIVE Urine NEGATIVE Urobilinogen Urine Leukocyte 1+ H Esterase Urine 69 H Microscopic RBC Urine 69 H Microscopic WBC Urine Bacteria FEW A Urine Hyaline FEW A Casts Urine Mucus MANY A Urine Hemoglobin NEGATIVE Urine Glucose NEGATIVE Urine Total 2+ H Protein Lactic Acid 1.7 Level Test 07/17/18 21:30 07/18/18 05:35 07/18/18 09:15 Blood Gas Blood arterial Blood arterial Specimen Source Arterial Blood 07/17/2018 9:30: 07/18/2018 9:40: Date Drawn 00 PM 07 AM Arterial Blood 7.397 7.383 pH (Temp corrected) Arterial Blood 48.3 H 55.5 H pCO2 (Temp correct) Arterial Blood 59.1 L 49.6 *L pO2 (Temp corrected) Arterial Blood 29.0 H 32.3 H HCO3 Arterial Blood 3.4 H 5.7 H Base Excess Arterial Blood 91.3 L 86.6 L Oxygen Saturatio n Leroy Test ACCEPTAB ACCEPTAB Arterial Blood Left Radial Right Radial Gas Puncture Site Arterial 0.4 0.2 Blood Carboxyhem oglobin Arterial Blood 0.2 0.3 Methemoglobin Blood Gas A-a O2 83.5 H 33.7 H Differential Oxyhemoglobin 90.8 L 86.2 L Percent Blood Gas 37.0 37.0 Temperature Blood Gas NASAL CANNULA ROOM AIR Modality FiO2 28.0 21.0 Blood Gas [facility] Notified Whom Blood Gas 07/17/2018 9:46: 07/18/2018 9:47: Notified Time 27 PM 53 AM White Blood 15.6 #H Count Red Blood Count 4.02 L Hemoglobin 12.7 L Hematocrit 38.7 L Mean Corpuscular 96.3 Volume Mean Corpuscular 31.6 Hemoglobin Mean Corpuscular 32.8 Hemoglobin Griselda nt Red Cell 13.2 Distribution Width Platelet Count 203 # Mean Platelet 10.4 Volume Immature 0.600 H Granulocytes % Neutrophils % 96.5 H Lymphocytes % 1.3 L Monocytes % 1.2 Eosinophils % 0.0 Basophils % 0.4 Nucleated Red 0.0 Blood Cells % Immature 0.100 H Granulocytes # Neutrophils # 15.0 H Lymphocytes # 0.2 L Monocytes # 0.2 L Eosinophils # 0.0 Basophils # 0.1 Nucleated Red 0.0 Blood Cells # Sodium Level 137 Potassium Level 4.7 Chloride Level 99 Carbon Dioxide 33 H Level Anion Gap 5 Blood Urea 19 Nitrogen Creatinine 0.57 L Est Glomerular Filtrat Rate mL/min Glucose Level 132 Hemoglobin A1c 4.3 Calcium Level 9.2 Total Bilirubin 0.8 Direct Bilirubin 0.00 Indirect 0.8 Bilirubin Aspartate Amino 30 Transf (AST/SGOT ) Alanine 24 Aminotransferase (ALT/SGPT) Alkaline 141 H Phosphatase Total Protein 6.2 # Albumin 3.4 Globulin 2.80 Albumin/Globulin 1.21 Ratio Blood Gas COCO PRIETO Critical Value Read Back Subjective 24 Hr Interval Summary Free Text/Dictation CT results noted Patient without much change to status Continues with heavy secretions Now using bipap Exam/Review of Systems Exam Vitals Vital Signs Date Temp Pulse Resp B/P (MAP) Pulse Ox O2 O2 Flow FiO2 Time Delivery Rate 07/18/18 72 12:04 07/18/18 98 40 11:15 07/18/18 98.8 17 96/55 (69) 11:08 07/18/18 4.0 05:15 07/17/18 Nasal 22:30 Cannula Exam Alert Nonverbal Breathing comfortably Very rhoncorous Gurgling secretions Results Results 24hrs Laboratory Tests Test 07/17/18 15:39 07/17/18 15:55 07/17/18 16:20 07/17/18 21:07 POC Venous 1.3 Lactate White Blood 8.3 Count Red Blood Count 4.48 L Hemoglobin 14.2 Hematocrit 43.2 Mean Corpuscular 96.4 Volume Mean Corpuscular 31.7 Hemoglobin Mean Corpuscular 32.9 Hemoglobin Griselda nt Red Cell 13.5 Distribution Width Platelet Count 255 # Mean Platelet 11.4 H Volume Immature 0.400 Granulocytes % Neutrophils % 82.2 H Lymphocytes % 8.4 L Monocytes % 6.3 Eosinophils % 2.2 Basophils % 0.5 Nucleated Red 0.0 Blood Cells % Immature 0.030 Granulocytes # Neutrophils # 6.8 Lymphocytes # 0.7 L Monocytes # 0.5 Eosinophils # 0.2 Basophils # 0.0 Nucleated Red 0.0 Blood Cells # Prothrombin Time 12.8 Prothrombin Time 1.0 Ratio INR 0.95 International Normalized Ratio Activated 34.3 Partial Thrombop last Time Sodium Level 141 Potassium Level 4.1 Chloride Level 99 Carbon Dioxide 36 H Level Anion Gap 6 Blood Urea 19 Nitrogen Creatinine 0.56 L Est Glomerular Filtrat Rate mL/min Glucose Level 110 Calcium Level 9.6 Total Bilirubin 0.5 Direct Bilirubin 0.00 Indirect 0.5 Bilirubin Aspartate Amino 42 Transf (AST/SGOT ) Alanine 13 Aminotransferase (ALT/SGPT) Alkaline 183 H Phosphatase Troponin I < 0.012 Total Protein 7.3 Albumin 4.0 Globulin 3.30 H Albumin/Globulin 1.21 Ratio Urine Color AURA Urine Clarity SLIGHTLY CLOUDY A Urine pH 5.0 Urine Specific 1.032 H Eagle Urine Ketones TRACE A Urine Nitrite NEGATIVE Urine Bilirubin NEGATIVE Urine NEGATIVE Urobilinogen Urine Leukocyte 1+ H Esterase Urine 69 H Microscopic RBC Urine 69 H Microscopic WBC Urine Bacteria FEW A Urine Hyaline FEW A Casts Urine Mucus MANY A Urine Hemoglobin NEGATIVE Urine Glucose NEGATIVE Urine Total 2+ H Protein Lactic Acid 1.7 Level Test 07/17/18 21:30 07/18/18 05:35 07/18/18 09:15 Blood Gas Blood arterial Blood arterial Specimen Source Arterial Blood 07/17/2018 9:30: 07/18/2018 9:40: Date Drawn 00 PM 07 AM Arterial Blood 7.397 7.383 pH (Temp corrected) Arterial Blood 48.3 H 55.5 H pCO2 (Temp correct) Arterial Blood 59.1 L 49.6 *L pO2 (Temp corrected) Arterial Blood 29.0 H 32.3 H HCO3 Arterial Blood 3.4 H 5.7 H Base Excess Arterial Blood 91.3 L 86.6 L Oxygen Saturatio n Leroy Test ACCEPTAB ACCEPTAB Arterial Blood Left Radial Right Radial Gas Puncture Site Arterial 0.4 0.2 Blood Carboxyhem oglobin Arterial Blood 0.2 0.3 Methemoglobin Blood Gas A-a O2 83.5 H 33.7 H Differential Oxyhemoglobin 90.8 L 86.2 L Percent Blood Gas 37.0 37.0 Temperature Blood Gas NASAL CANNULA ROOM AIR Modality FiO2 28.0 21.0 Blood Gas [facility] Notified Whom Blood Gas 07/17/2018 9:46: 07/18/2018 9:47: Notified Time 27 PM 53 AM White Blood 15.6 #H Count Red Blood Count 4.02 L Hemoglobin 12.7 L Hematocrit 38.7 L Mean Corpuscular 96.3 Volume Mean Corpuscular 31.6 Hemoglobin Mean Corpuscular 32.8 Hemoglobin Griselda nt Red Cell 13.2 Distribution Width Platelet Count 203 # Mean Platelet 10.4 Volume Immature 0.600 H Granulocytes % Neutrophils % 96.5 H Lymphocytes % 1.3 L Monocytes % 1.2 Eosinophils % 0.0 Basophils % 0.4 Nucleated Red 0.0 Blood Cells % Immature 0.100 H Granulocytes # Neutrophils # 15.0 H Lymphocytes # 0.2 L Monocytes # 0.2 L Eosinophils # 0.0 Basophils # 0.1 Nucleated Red 0.0 Blood Cells # Sodium Level 137 Potassium Level 4.7 Chloride Level 99 Carbon Dioxide 33 H Level Anion Gap 5 Blood Urea 19 Nitrogen Creatinine 0.57 L Est Glomerular Filtrat Rate mL/min Glucose Level 132 Hemoglobin A1c 4.3 Calcium Level 9.2 Total Bilirubin 0.8 Direct Bilirubin 0.00 Indirect 0.8 Bilirubin Aspartate Amino 30 Transf (AST/SGOT ) Alanine 24 Aminotransferase (ALT/SGPT) Alkaline 141 H Phosphatase Total Protein 6.2 # Albumin 3.4 Globulin 2.80 Albumin/Globulin 1.21 Ratio Blood Gas COCO PRIETO Critical Value Read Back Medications Medication Current Medications IV Flush (NS 3 ml) 3 ml PER PROTOCOL IV ; Start 07/17/18 at 18:00 Enoxaparin Sodium (Lovenox) 40 mg DAILY SC Last administered on 07/18/18at 10:14; Admin Dose 40 MG; Start 07/18/18 at 09:00 Piperacillin Sod/ Tazobactam Sod 100 ml @ 200 mls/hr Q8 IVPB Last administered on 07/18/18at 05:18; Admin Dose 200 MLS/HR; Start 07/17/18 at 22:00 Methylprednisolone Sodium Succinate (Solu-Medrol) 20 mg Q8 IV Last administered on 07/18/18at 05:18; Admin Dose 20 MG; Start 07/17/18 at 22:00 Albuterol (Proventil 0.083% (Neb)) 2.5 mg Q3H RESP THERAPY PRN NEB WHEEZING AND SOB; Start 07/17/18 at 18:30 Entacapone (Comtan) 200 mg QID GTB Last administered on 07/18/18at 09:54; Admin Dose 200 MG; Start 07/17/18 at 21:00 Glycopyrrolate (Robinul) 1 mg BID GTB Last administered on 07/18/18at 09:00; Admin Dose 1 MG; Start 07/17/18 at 21:00 Polyethylene Glycol (Miralax) 8.5 gm DAILY PRN GTB NEEDED; Start 07/17/18 at 18:30 Non-Formulary Medication 1 ea DAILY TRANSDERM Last administered on 07/18/18at 09:00; Admin Dose 1 EA; Start 07/18/18 at 09:00 Carbidopa/Levodopa (Sinemet (25/ 100)) 2.5 tab BID@1000,1800 GTB Last administered on 07/18/18at 09:54; Admin Dose 2.5 TAB; Start 07/18/18 at 10:00 Carbidopa/Levodopa (Sinemet (25/ 100)) 2 tab BID@1400,2200 GTB Last administered on 07/17/18at 23:47; Admin Dose 2 TAB; Start 07/17/18 at 22:00 Ibuprofen (Motrin) 800 mg HS PRN GTB MILD PAIN LEVEL 1-3 Last administered on 07/18/18at 00:22; Admin Dose 800 MG; Start 07/17/18 at 23:45 Miscellaneous Information (Pending [facility] Order For Wound Care) This patient florence... PRN PRN XX WOUND CARE; Start 07/18/18 at 08:00 Baclofen (Lioresal) 10 mg DAILY@1800 GTB ; Start 07/18/18 at 18:00 Baclofen (Lioresal) 5 mg BID@0900,1400 GTB ; Start 07/18/18 at 09:00 Baclofen (Lioresal) 15 mg HS@2300 GTB ; Start 07/18/18 at 23:00 Midodrine (Proamatine) 5 mg ONCE ONCE PO ; Start 07/18/18 at 12:30; Stop 07/18/18 at 12:31; Status DEVORA DURAN MD Jul 18, 2018 12:09
[2018-07-18] MEDS ORDERED: MIDODRINE 5 MG TAB PO ONE (12:30)
--- NOTE | 2018-07-18 15:35 | CONS ---
DATE OF ADMISSION: 07/17/2018 DATE OF CONSULTATION: 07/18/2018 REASON FOR CONSULT: Respiratory distress. Thank you, Dr. Vitale for this consultation. HISTORY OF PRESENT ILLNESS: This is a 72-year-old gentleman known to me for several years, seen in t he office yesterday for ongoing chronic hypoxemic respiratory failure. The patient yesterday had mar ked lethargy, accessory muscle use, diminished breath sounds bilaterally with progressive hypoxemia. I advised them to present to the Emergency Room for emergent admission. They drove to [facility]. The patient was admitted through the ER and found to have extensive bilateral infiltrates on CT of the chest with leukocytosis this morning. The patient is nonverbal at baseline, has advanced dementia with G-tube and has been intubated in the past. PAST MEDICAL HISTORY: 1. Severe Parkinson's disease. 2. Dysphagia with G-tube. 3. Prior history of hypoxemic respiratory failure requiring mechanical ventilation. MEDICATIONS: Per chart. ALLERGIES: CLONIDINE. SOCIAL HISTORY: He is a nonsmoker, no alcohol, no history of drug use. FAMILY HISTORY: Noncontributory. PHYSICAL EXAMINATION: GENERAL: Well-nourished, well-developed gentleman on bilevel ventilation. VITAL SIGNS: Currently afebrile, pulse is 70, blood pressure 95/55, O2 saturation 96%, FIO2 of 40%. HEENT: Dry mucous membranes. Pupils equal and reactive to light. CARDIAC: S1, S2, no added sounds or murmurs. CHEST: Diminished air entry bilaterally with rales. ABDOMEN: Soft, nontender. No guarding or rebound. EXTREMITIES: No cyanosis, clubbing. Edema +1. NEUROLOGIC: Generalized weakness. LABORATORY DATA: This morning white count 15.6, hemoglobin 12.7, platelets 203. BUN 19, creatinine 0.57. INR 0.95. DIAGNOSTIC STUDIES: Chest CT findings showed no pulmonary embolism, extensive thickening and mucus p lugging. Lower airways with bilateral patchy infiltrates. IMPRESSION AND PLAN: Community-acquired pneumonia versus aspiration pneumonitis in a patient with ma rked dysphagia and severe Parkinson disease. The patient will require: 1. Continued supplemental O2. 2. Noninvasive positive pressure ventilation. 3. Broad-spectrum antibiotic coverage. 4. Gentle diuresis if tolerated. 5. Short steroid taper. 6. Continue anti-Parkinson's medications. 7. Continue tube feeding per G-tube. The patient currently DNR, which I think is appropriate given his advanced Parkinson's disease. We w ill continue all supportive care. Dictated By: SANDHYA RODRIGUEZ MD SV/NTS Conf#: [id number] DID#: [id number] CC: DEVORA VITALE MD;*EndCC*
[2018-07-19] VITALS (15 sets, daily range): BP systolic 131–169; BP diastolic 68–88; PULSE 56–84; RESP 17–20
[2018-07-19] MEDS: IBUPROFEN 800 MG TAB GTB PRN ×3 (00:45→22:43)
[2018-07-19] MEDS: METHYLPREDNISOLONE 40 MG INJ IV SCH ×3 (06:54→21:18)
[2018-07-19] MEDS: PIPER-TAZO 3.375 GM IV (PMX) 100 ML IVPB SCH ×3 (06:54→21:18)
[2018-07-19] MEDS: ROTIGOTINE TRANSDERM SCH (09:00)
[2018-07-19] MEDS: ENTACAPONE 200 MG TAB GTB SCH ×4 (09:00→21:16)
[2018-07-19] MEDS: GLYCOPYRROLATE 1 MG TAB GTB SCH ×2 (10:15→21:16)
[2018-07-19] MEDS: CARBIDOPA/LEVODOPA (25/100) TAB GTB SCH ×4 (10:15→21:16)
[2018-07-19] MEDS: BACLOFEN 10 MG TAB GTB SCH ×4 (10:16→22:42)
[2018-07-19] MEDS: ENOXAPARIN 40 MG/0.4 ML SYG SC SCH (10:25)
--- NOTE | 2018-07-19 14:36 | CONS ---
Consult Date/Type/Reason Admit Date/Time Jul 17, 2018 at 17:22 Initial Consult Date Type of Consultation: Pulm Date/Time of Note DATE: 07/19/18 TIME: 14:33 Subjective No events overnight. Objective Vitals Vital Signs Date Temp Pulse Resp B/P (MAP) Pulse Ox O2 O2 Flow FiO2 Time Delivery Rate 07/19/18 80 95 14:11 07/19/18 98.2 17 131/68 11:25 (89) 07/19/18 35 05:20 07/19/18 2.0 04:50 07/19/18 Nasal 03:00 Cannula Intake and Output 07/18/18 07/18/18 07/19/18 1515:00 23:00 07:00 IntakeIntake Total 550 ml 950 ml 616 ml OutputOutput Total 850 ml 650 ml 425 ml BalanceBalance -300 ml 300 ml 191 ml Exam HEENT: Neck supple; no JVD; no LAD CVS: RRR, S1 and S2 CHEST: Coarse rhonchi ABD: Soft, NT, + BS EXT: No c/c/e Results/Medications Result Diagram: 07/18/18 0535 07/18/18 0535 Results 24 hrs Laboratory Tests Test 07/19/18 00:43 Bedside Glucose 151 Home Meds Reported Medications [Vitamin C] No Conflict Check, 1000 MG GTB DAILY 07/17/18 Ibuprofen* (Ibuprofen*) 200 Mg Capsule, 800 MG GTB QHS PRN for PAIN, CAP 07/17/18 Rotigotine (NEUPRO) 1 Each Patch.td24, 1 EACH TD DAILY 6MG 07/17/18 Polyethylene Glycol* (Miralax*) 17 Gm Powd.pack, 8.5 GM GTB DAILY PRN for NEEDED, #30 PACKET 07/17/18 Baclofen* (Baclofen*) 10 Mg Tablet, 10 MG GTB TID, TAB TAKE 5MG-QAM AND 5MG-QPM, 15MG-QHS 07/17/18 Glycopyrrolate* (Glycopyrrolate*) 1 Mg Tablet, 1 MG GTB BID, TAB 07/17/18 Albuterol Sulfate* (Albuterol Sulfate* Neb) 0.083%-3 Ml Neb, 2.5 MG NEB Q3H PRN for WHEEZING AND SOB, #30 VIAL 07/17/18 Entacapone* (Entacapone*) 200 Mg Tablet, 200 MG GTB QID, TAB 07/17/18 Aspirin* (Aspirin* EC) 81 Mg Tablet.dr, 81 MG GTB DAILY, TAB 07/17/18 Carbidopa/Levodopa (CARBIDOPA-LEVO 25-100 MG ODT) 1 Each Tab.rapdis, 2.5 TAB GTB BID, #90 TAB 10-AM AND 6-PM 07/17/18 Carbidopa/Levodopa (CARBIDOPA-LEVO 25-100 MG ODT) 1 Each Tab.rapdis, 2 TAB GTB BID, #120 TAB 2-PM AND 10-PM 07/17/18 Discontinued Reported Medications Aspirin* (Aspirin* EC) 81 Mg Tablet.dr, 81 MG PO DAILY, TAB 04/23/17 Simvastatin* (Zocor*) 10 Mg Tablet, 10 MG PO QHS, #30 TAB 04/23/17 Entacapone* (Entacapone*) 200 Mg Tablet, 200 MG PO QID, TAB TAKE QID WITH CARBIDOPA/LEVODOPA 04/23/17 Carbidopa/Levodopa (CARBIDOPA-LEVO 25-100 MG ODT) 1 Each Tab.rapdis, 2 TAB PO QID, #120 TAB take 2+1/2 tab-10am, 2tab-2pm, 2+1/2 tab-6pm, 2tab-10pm 04/23/17 Discontinued Scripts Ascorbic Acid (Vitamin C) 500 Mg Tab, 500 MG NGT DAILY, #30 TAB 2 Refills Prov:MILLICENT MELGAR S. 05/02/17 Polyethylene Glycol* (Miralax*) 17 Gm Powd.pack, 8.5 GM GTB DAILY, #30 2 Refills Prov:MILLICENT MELGAR S. 05/02/17 Famotidine* (Famotidine*) 20 Mg Tablet, 20 MG GTB HS, #30 TAB 2 Refills Prov:MILLICENT MELGAR S. 05/02/17 Ferrous Sulfate (Ferrous Sulfate) 300 Mg/5 Ml Liquid, 300 MG GTB DAILY for 30 Days, 2 Refills Prov:FABRICIO MELGARP S. 05/02/17 Lisinopril* (Lisinopril*) 10 Mg Tablet, 10 MG PO DAILY, #30 TAB 2 Refills Prov:TALIAMILLICENT [place] 05/02/17 Albuterol Sulfate* (Albuterol Sulfate* Neb) 0.083%-3 Ml Neb, 2.5 MG NEB Q4 PRN for SHORTNESS OF BREATH, #30 EA Prov:ROBERT MORENO MD 04/23/17 Medications Current Medications IV Flush (NS 3 ml) 3 ml PER PROTOCOL IV ; Start 07/17/18 at 18:00 Enoxaparin Sodium (Lovenox) 40 mg DAILY SC Last administered on 07/19/18 10:25; Admin Dose 40 MG; Start 07/18/18 at 09:00 Piperacillin Sod/ Tazobactam Sod 100 ml @ 200 mls/hr Q8 IVPB Last administered on 07/19/18 06:54; Admin Dose 200 MLS/HR; Start 07/17/18 at 22:00 Methylprednisolone Sodium Succinate (Solu-Medrol) 20 mg Q8 IV Last administered on 07/19/18 06:54; Admin Dose 20 MG; Start 07/17/18 at 22:00 Albuterol (Proventil 0.083% (Neb)) 2.5 mg Q3H RESP THERAPY PRN NEB WHEEZING AND SOB; Start 07/17/18 at 18:30 Entacapone (Comtan) 200 mg QID GTB Last administered on 07/19/18 09:00; Admin Dose 200 MG; Start 07/17/18 at 21:00 Glycopyrrolate (Robinul) 1 mg BID GTB Last administered on 07/19/18 10:15; Admin Dose 1 MG; Start 07/17/18 at 21:00 Polyethylene Glycol (Miralax) 8.5 gm DAILY PRN GTB NEEDED; Start 07/17/18 at 18:30 Non-Formulary Medication 1 ea DAILY TRANSDERM Last administered on 07/19/18 09:00; Admin Dose 1 EA; Start 07/18/18 at 09:00 Carbidopa/Levodopa (Sinemet (25/ 100)) 2.5 tab BID@1000,1800 GTB Last adminis tered on 07/19/18 10:15; Admin Dose 2.5 TAB; Start 07/18/18 at 10:00 Carbidopa/Levodopa (Sinemet (25/ 100)) 2 tab BID@1400,2200 GTB Last administered on 07/18/18at 21:54; Admin Dose 2 TAB; Start 07/17/18 at 22:00 Ibuprofen (Motrin) 800 mg HS PRN GTB MILD PAIN LEVEL 1-3 Last administered on 07/19/18at 10:40; Admin Dose 800 MG; Start 07/17/18 at 23:45 Miscellaneous Information (Pending Santyl Order For Wound Care) This patient florence... PRN PRN XX WOUND CARE; Start 07/18/18 at 08:00 Baclofen (Lioresal) 10 mg DAILY@1800 GTB ; Start 07/18/18 at 18:00 Baclofen (Lioresal) 5 mg BID@0900,1400 GTB Last administered on 07/19/18at 10:16; Admin Dose 5 MG; Start 07/18/18 at 09:00 Baclofen (Lioresal) 15 mg HS@2300 GTB ; Start 07/18/18 at 23:00 Assessment/Plan Assessment/Plan (Daily) IMP: 1. Acute on chronic hypoxemic and hypercapnic resp insufficiency 2. Aspiration pneumonitis 3. Parkinson's RECS: 1. Aspiration precautions 2. Follow residuals 3. Abx 4. Titrate FiO2 as tolerated. CJ SEALS MD Jul 19, 2018 14:36
--- NOTE | 2018-07-19 15:51 | PN ---
Date/Time of Note Date/Time of Note DATE: 07/19/18 TIME: 15:49 Assessment/Plan VTE Prophylaxis Risk score (from Nsg)>0 risk: 5 SCD applied (from Nsg): Yes Pharmacological prophylaxis: LMWH Lines/Catheters IV Catheter Type (from Nrsg): Saline Lock Assessment/Plan Assessment/Plan 72 yo male with "multisystems atrophy" leading to chronic hypercapnic respiratory failure who presents with respiratory distress and hypoxia - CT suggests possible bacterial pneumonia, will continue zosyn and steroids IV - I suspect this is from aspiration, needs frequent suctioning and chest PT - BIPAP if needed for chronic hyperpneic respiratory failure, however this will make aspiration worse - Pulmonary consulted - Tube feeds Multisystems atrophy vs Parkinsons (unclear diagonsis) - continue home meds with entacapone, sinemet DNR/DNI Result Diagram: 07/18/1835 07/18/1835 Results 24hrs Laboratory Tests Test 07/19/18 00:43 Bedside Glucose 151 Subjective 24 Hr Interval Summary Free Text/Dictation No acute overnight events. Spoke at length with family at bedside about patient's baseline condition and his plan of care. Exam/Review of Systems Exam Vitals Vital Signs Date Temp Pulse Resp B/P (MAP) Pulse Ox O2 O2 Flow FiO2 Time Delivery Rate 07/19/18 98.2 84 19 169/71 100 15:47 (103) 07/19/18 35 05:20 07/19/18 2.0 04:50 07/19/18 Nasal 03:00 Cannula Intake and Output 07/18/18 07/18/18 07/19/18 1515:00 23:00 07:00 IntakeIntake Total 550 ml 950 ml 616 ml OutputOutput Total 850 ml 650 ml 425 ml BalanceBalance -300 ml 300 ml 191 ml Exam GENERAL: Well-nourished, well-developed gentleman breathing on nasal cannula HEENT: Dry mucous membranes. Pupils equal and reactive to light. Patient is nonverbal and doesn't seem to respond to stimuli. CARDIAC: S1, S2, no added sounds or murmurs. CHEST: Diminished air entry bilaterally with rales. ABDOMEN: Soft, nontender. No guarding or rebound. EXTREMITIES: No cyanosis, clubbing.Trace edema. NEUROLOGIC: Nonverbal. Does not appear to respond to commands. Hypertonic extremities. Has occasional blinks, tics, and other involuntary movements. Results Results 24hrs Laboratory Tests Test 07/19/18 00:43 Bedside Glucose 151 Medications Medication Current Medications IV Flush (NS 3 ml) 3 ml PER PROTOCOL IV ; Start 07/17/18 at 18:00 Enoxaparin Sodium (Lovenox) 40 mg DAILY SC Last administered on 07/19/18 10:25; Admin Dose 40 MG; Start 07/18/18 at 09:00 Piperacillin Sod/ Tazobactam Sod 100 ml @ 200 mls/hr Q8 IVPB Last administered on 07/19/18 15:28; Admin Dose 200 MLS/HR; Start 07/17/18 at 22:00 Methylprednisolone Sodium Succinate (Solu-Medrol) 20 mg Q8 IV Last administered on 07/19/18 15:28; Admin Dose 20 MG; Start 07/17/18 at 22:00 Albuterol (Proventil 0.083% (Neb)) 2.5 mg Q3H RESP THERAPY PRN NEB WHEEZING AND SOB; Start 07/17/18 at 18:30 Entacapone (Comtan) 200 mg QID GTB Last administered on 07/19/18 15:28; Admin Dose 200 MG; Start 07/17/18 at 21:00 Glycopyrrolate (Robinul) 1 mg BID GTB Last administered on 07/19/18 10:15; Admin Dose 1 MG; Start 07/17/18 at 21:00 Polyethylene Glycol (Miralax) 8.5 gm DAILY PRN GTB NEEDED; Start 07/17/18 at 18:30 Non-Formulary Medication 1 ea DAILY TRANSDERM Last administered on 07/19/18 09:00; Admin Dose 1 EA; Start 07/18/18 at 09:00 Carbidopa/Levodopa (Sinemet (25/ 100)) 2.5 tab BID@1000,1800 GTB Last administered on 07/19/18 10:15; Admin Dose 2.5 TAB; Start 07/18/18 at 10:00 Carbidopa/Levodopa (Sinemet (25/ 100)) 2 tab BID@1400,2200 GTB Last administered on 07/19/18 15:44; Admin Dose 2 TAB; Start 07/17/18 at 22:00 Ibuprofen (Motrin) 800 mg HS PRN GTB MILD PAIN LEVEL 1-3 Last administered on 07/19/18at 10:40; Admin Dose 800 MG; Start 07/17/18 at 23:45 Miscellaneous Information (Pending Santyl Order For Wound Care) This patient florence... PRN PRN XX WOUND CARE; Start 07/18/18 at 08:00 Baclofen (Lioresal) 10 mg DAILY@1800 GTB ; Start 07/18/18 at 18:00 Baclofen (Lioresal) 5 mg BID@0900,1400 GTB Last administered on 07/19/18at 10:16; Admin Dose 5 MG; Start 07/18/18 at 09:00 Baclofen (Lioresal) 15 mg HS@2300 GTB ; Start 07/18/18 at 23:00 DEREK DELGADILLO MD Jul 19, 2018 15:51
[2018-07-20] VITALS (15 sets, daily range): BP systolic 141–167; BP diastolic 78–87; PULSE 62–84; RESP 17–18
[2018-07-20] MEDS: PIPER-TAZO 3.375 GM IV (PMX) 100 ML IVPB SCH ×3 (05:56→21:11)
[2018-07-20] MEDS: METHYLPREDNISOLONE 40 MG INJ IV SCH ×3 (05:56→21:10)
[2018-07-20] MEDS: GLYCOPYRROLATE 1 MG TAB GTB SCH ×2 (08:28→21:09)
[2018-07-20] MEDS: ENTACAPONE 200 MG TAB GTB SCH ×4 (08:29→21:08)
[2018-07-20] MEDS: ENOXAPARIN 40 MG/0.4 ML SYG SC SCH (08:39)
[2018-07-20] MEDS: ROTIGOTINE TRANSDERM SCH (08:41)
[2018-07-20] MEDS: BACLOFEN 10 MG TAB GTB SCH ×2 (08:41→13:08)
[2018-07-20] MEDS: CARBIDOPA/LEVODOPA (25/100) TAB GTB SCH ×4 (09:45→21:09)
[2018-07-20] MEDS: LISINOPRIL 10 MG TAB GTB SCH (09:45)
[2018-07-20] MEDS ORDERED: ACETAMINOPHEN 650MG/20.3ML CUP GTB PRN (10:30)
--- NOTE | 2018-07-20 14:10 | CONS ---
Consult Date/Type/Reason Admit Date/Time Jul 17, 2018 at 17:22 Initial Consult Date Type of Consultation: Pulm Date/Time of Note DATE: 07/20/18 TIME: 14:09 Subjective No events. On oxygen via NC. Objective Vitals Vital Signs Date Temp Pulse Resp B/P (MAP) Pulse Ox O2 O2 Flow FiO2 Time Delivery Rate 07/20/18 72 12:04 07/20/18 98.2 18 156/84 99 11:37 (108) 07/20/18 Nasal 3.0 09:51 Cannula 07/19/18 35 05:20 Intake and Output 07/19/18 07/19/18 07/20/18 1515:00 23:00 07:00 IntakeIntake Total 1490 ml 1000 ml OutputOutput Total 1000 ml 900 ml BalanceBalance 490 ml 100 ml Exam HEENT: Neck supple; no JVD; no LAD CVS: RRR, S1 and S2 CHEST: Coarse rhonchi ABD: Soft, NT, + BS EXT: No c/c/e Results/Medications Result Diagram: 07/20/1853 07/20/18 0953 Results 24 hrs Laboratory Tests Test 07/20/18 09:53 White Blood Count 9.4 # Red Blood Count 3.93 L Hemoglobin 12.3 L Hematocrit 37.6 L Mean Corpuscular Volume 95.7 Mean Corpuscular Hemoglobin 31.3 Mean Corpuscular Hemoglobin Concent 32.7 Red Cell Distribution Width 12.9 Platelet Count 253 # Mean Platelet Volume 10.4 Immature Granulocytes % 0.600 H Neutrophils % 93.9 H Lymphocytes % 2.6 L Monocytes % 2.8 Eosinophils % 0.0 Basophils % 0.1 Nucleated Red Blood Cells % 0.0 Immature Granulocytes # 0.060 H Neutrophils # 8.9 H Lymphocytes # 0.3 L Monocytes # 0.3 Eosinophils # 0.0 Basophils # 0.0 Nucleated Red Blood Cells # 0.0 Sodium Level 142 Potassium Level 4.5 Chloride Level 103 Carbon Dioxide Level 35 H Anion Gap 4 L Blood Urea Nitrogen 23 H Creatinine 0.63 Est Glomerular Filtrat Rate mL/min Glucose Level 153 Calcium Level 9.3 Phosphorus Level 2.6 Magnesium Level 2.6 H Home Meds Reported Medications [Vitamin C] No Conflict Check, 1000 MG GTB DAILY 07/17/18 Ibuprofen* (Ibuprofen*) 200 Mg Capsule, 800 MG GTB QHS PRN for PAIN, CAP 07/17/18 Rotigotine (NEUPRO) 1 Each Patch.td24, 1 EACH TD DAILY 6MG 07/17/18 Polyethylene Glycol* (Miralax*) 17 Gm Powd.pack, 8.5 GM GTB DAILY PRN for NEEDED, #30 PACKET 07/17/18 Baclofen* (Baclofen*) 10 Mg Tablet, 10 MG GTB TID, TAB TAKE 5MG-QAM AND 5MG-QPM, 15MG-QHS 07/17/18 Glycopyrrolate* (Glycopyrrolate*) 1 Mg Tablet, 1 MG GTB BID, TAB 07/17/18 Albuterol Sulfate* (Albuterol Sulfate* Neb) 0.083%-3 Ml Neb, 2.5 MG NEB Q3H PRN for WHEEZING AND SOB, #30 VIAL 07/17/18 Entacapone* (Entacapone*) 200 Mg Tablet, 200 MG GTB QID, TAB 07/17/18 Aspirin* (Aspirin* EC) 81 Mg Tablet.dr, 81 MG GTB DAILY, TAB 07/17/18 Carbidopa/Levodopa (CARBIDOPA-LEVO 25-100 MG ODT) 1 Each Tab.rapdis, 2.5 TAB GTB BID, #90 TAB 10-AM AND 6-PM 07/17/18 Carbidopa/Levodopa (CARBIDOPA-LEVO 25-100 MG ODT) 1 Each Tab.rapdis, 2 TAB GTB BID, #120 TAB 2-PM AND 10-PM 07/17/18 Discontinued Reported Medications Aspirin* (Aspirin* EC) 81 Mg Tablet.dr, 81 MG PO DAILY, TAB 04/23/17 Simvastatin* (Zocor*) 10 Mg Tablet, 10 MG PO QHS, #30 TAB 04/23/17 Entacapone* (Entacapone*) 200 Mg Tablet, 200 MG PO QID, TAB TAKE QID WITH CARBIDOPA/LEVODOPA 04/23/17 Carbidopa/Levodopa (CARBIDOPA-LEVO 25-100 MG ODT) 1 Each Tab.rapdis, 2 TAB PO QID, #120 TAB take 2+1/2 tab-10am, 2tab-2pm, 2+1/2 tab-6pm, 2tab-10pm 04/23/17 Discontinued Scripts Ascorbic Acid (Vitamin C) 500 Mg Tab, 500 MG NGT DAILY, #30 TAB 2 Refills Prov:MILLICENT MELGAR S. 05/02/17 Polyethylene Glycol* (Miralax*) 17 Gm Powd.pack, 8.5 GM GTB DAILY, #30 2 Refills Prov:MILLICENT MELGAR S. 05/02/17 Famotidine* (Famotidine*) 20 Mg Tablet, 20 MG GTB HS, #30 TAB 2 Refills Prov:MILLICENT MELGAR S. 05/02/17 Ferrous Sulfate (Ferrous Sulfate) 300 Mg/5 Ml Liquid, 300 MG GTB DAILY for 30 Days, 2 Refills Prov:MILLICENT MELGAR S. 05/02/17 Lisinopril* (Lisinopril*) 10 Mg Tablet, 10 MG PO DAILY, #30 TAB 2 Refills Prov:MILLICENT MELGAR S. 05/02/17 Albuterol Sulfate* (Albuterol Sulfate* Neb) 0.083%-3 Ml Neb, 2.5 MG NEB Q4 PRN for SHORTNESS OF BREATH, #30 EA Prov:ROEBRT MORENO MD 04/23/17 Medications Current Medications IV Flush (NS 3 ml) 3 ml PER PROTOCOL IV ; Start 07/17/18 at 18:00 Enoxaparin Sodium (Lovenox) 40 mg DAILY SC Last administered on 07/20/18at 08:39; Admin Dose 40 MG; Start 07/18/18 at 09:00 Piperacillin Sod/ Tazobactam Sod 100 ml @ 200 mls/hr Q8 IVPB Last administered on 07/20/18at 13:08; Admin Dose 200 MLS/HR; Start 07/17/18 at 22:00 Methylprednisolone Sodium Succinate (Solu-Medrol) 20 mg Q8 IV Last administered on 07/20/18at 13:09; Admin Dose 20 MG; Start 07/17/18 at 22:00 Albuterol (Proventil 0.083% (Neb)) 2.5 mg Q3H RESP THERAPY PRN NEB WHEEZING AND SOB; Start 07/17/18 at 18:30 Entacapone (Comtan) 200 mg QID GTB Last administered on 07/20/18at 13:10; Admin Dose 200 MG; Start 07/17/18 at 21:00 Glycopyrrolate (Robinul) 1 mg BID GTB Last administered on 07/20/18 08:28; Admin Dose 1 MG; Start 07/17/18 at 21:00 Polyethylene Glycol (Miralax) 8.5 gm DAILY PRN GTB NEEDED; Start 07/17/18 at 18:30 Non-Formulary Medication 1 ea DAILY TRANSDERM Last administered on 07/20/18 08:41; Admin Dose 1 EA; Start 07/18/18 at 09:00 Carbidopa/Levodopa (Sinemet (25/ 100)) 2.5 tab BID@1000,1800 GTB Last admi nistered on 07/20/18 09:45; Admin Dose 2.5 TAB; Start 07/18/18 at 10:00 Carbidopa/Levodopa (Sinemet (25/ 100)) 2 tab BID@1400,2200 GTB Last administered on 07/20/18 13:09; Admin Dose 2 TAB; Start 07/17/18 at 22:00 Ibuprofen (Motrin) 800 mg HS PRN GTB MILD PAIN LEVEL 1-3 Last administered on 07/19/18 22:43; Admin Dose 800 MG; Start 07/17/18 at 23:45 Miscellaneous Information (Pending Santyl Order For Wound Care) This patient florence... PRN PRN XX WOUND CARE; Start 07/18/18 at 08:00 Baclofen (Lioresal) 5 mg BID@0900,1400 GTB Last administered on 07/20/18 13:08; Admin Dose 5 MG; Start 07/18/18 at 09:00 Baclofen (Lioresal) 15 mg HS@2300 GTB Last administered on 07/19/18 22:42; Admin Dose 15 MG; Start 07/18/18 at 23:00 Lisinopril (Zestril) 10 mg DAILY GTB Last administered on 07/20/18 09:45; Admin Dose 10 MG; Start 07/20/18 at 09:30 Acetaminophen (Tylenol Liquid) 650 mg ONCE PRN GTB MILD PAIN(1-3)OR ELEVATED TEMP Last administered on 07/20/18at 10:35; Admin Dose 650 MG; Start 07/20/18 at 10:30; Stop 07/20/18 at 18:00 Baclofen (Lioresal) 10 mg DAILY@1800 GTB ; Start 07/20/18 at 22:00 Assessment/Plan Assessment/Plan (Daily) IMP: 1. Acute on chronic hypoxemic and hypercapnic resp insufficiency 2. Aspiration pneumonitis 3. Parkinson's RECS: 1. Aspiration precautions 2. Follow residuals 3. Abx 4. Titrate FiO2 as tolerated 5. Taper CS CJ SEALS MD Jul 20, 2018 14:10
--- NOTE | 2018-07-20 14:31 | PN ---
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 who presents with respiratory distress and hypoxia - CT suggests possible bacterial pneumonia, will continue zosyn and steroids IV - I suspect this is from aspiration, needs frequent suctioning and chest PT - BIPAP if needed for chronic hyperpneic respiratory failure, however this will make aspiration worse - Pulmonary consulted - Tube feeds - Started lisinopril for HTN Multisystems atrophy vs Parkinsons (unclear diagonsis) - continue home meds with entacapone, sinemet DNR/DNI Result Diagram: 07/20/18 0953 07/20/18 0953 Subjective 24 Hr Interval Summary Free Text/Dictation No acute overnight events. Patient still completely unresponsive. Hypertensive for the past several days. Exam/Review of Systems Exam Vitals Vital Signs Date Temp Pulse Resp B/P (MAP) Pulse Ox O2 O2 Flow FiO2 Time Delivery Rate 07/20/18 72 12:04 07/20/18 98.2 18 156/84 99 11:37 (108) 07/20/18 Nasal 3.0 09:51 Cannula 07/19/18 35 05:20 Intake and Output 07/19/18 07/19/18 07/20/18 1515:00 23:00 07:00 IntakeIntake Total 1490 ml 1000 ml OutputOutput Total 1000 ml 900 ml BalanceBalance 490 ml 100 ml Exam GENERAL: Well-nourished, well-developed gentleman breathing on nasal cannula HEENT: Dry mucous membranes. Pupils equal and reactive to light. Patient is no nverbal and doesn't seem to respond to stimuli. CARDIAC: S1, S2, no added sounds or murmurs. CHEST: Diminished air entry bilaterally with rales. ABDOMEN: Soft, nontender. No guarding or rebound. EXTREMITIES: No cyanosis, clubbing.Trace edema. NEUROLOGIC: Nonverbal. Does not appear to respond to commands or stimulation. Hypertonic extremities. Has occasional blinks, tics, and other involuntary movements. Results Results 24hrs Laboratory Tests Test 07/20/18 09:53 White Blood Count 9.4 # Red Blood Count 3.93 L Hemoglobin 12.3 L Hematocrit 37.6 L Mean Corpuscular Volume 95.7 Mean Corpuscular Hemoglobin 31.3 Mean Corpuscular Hemoglobin Concent 32.7 Red Cell Distribution Width 12.9 Platelet Count 253 # Mean Platelet Volume 10.4 Immature Granulocytes % 0.600 H Neutrophils % 93.9 H Lymphocytes % 2.6 L Monocytes % 2.8 Eosinophils % 0.0 Basophils % 0.1 Nucleated Red Blood Cells % 0.0 Immature Granulocytes # 0.060 H Neutrophils # 8.9 H Lymphocytes # 0.3 L Monocytes # 0.3 Eosinophils # 0.0 Basophils # 0.0 Nucleated Red Blood Cells # 0.0 Sodium Level 142 Potassium Level 4.5 Chloride Level 103 Carbon Dioxide Level 35 H Anion Gap 4 L Blood Urea Nitrogen 23 H Creatinine 0.63 Est Glomerular Filtrat Rate mL/min Glucose Level 153 Calcium Level 9.3 Phosphorus Level 2.6 Magnesium Level 2.6 H Medications Medication Current Medications IV Flush (NS 3 ml) 3 ml PER PROTOCOL IV ; Start 07/17/18 at 18:00 Enoxaparin Sodium (Lovenox) 40 mg DAILY SC Last administered on 07/20/18at 08:39; Admin Dose 40 MG; Start 07/18/18 at 09:00 Piperacillin Sod/ Tazobactam Sod 100 ml @ 200 mls/hr Q8 IVPB Last administered on 07/20/18at 13:08; Admin Dose 200 MLS/HR; Start 07/17/18 at 22:00 Methylprednisolone Sodium Succinate (Solu-Medrol) 20 mg Q8 IV Last administered on 07/20/18at 13:09; Admin Dose 20 MG; Start 07/17/18 at 22:00 Albuterol (Proventil 0.083% (Neb)) 2.5 mg Q3H RESP THERAPY PRN NEB WHEEZING AND SOB; Start 07/17/18 at 18:30 Entacapone (Comtan) 200 mg QID GTB Last administered on 07/20/18at 13:10; Admin Dose 200 MG; Start 07/17/18 at 21:00 Glycopyrrolate (Robinul) 1 mg BID GTB Last administered on 07/20/18at 08:28; Admin Dose 1 MG; Start 07/17/18 at 21:00 Polyethylene Glycol (Miralax) 8.5 gm DAILY PRN GTB NEEDED; Start 07/17/18 at 18:30 Non-Formulary Medication 1 ea DAILY TRANSDERM Last administered on 07/20/18at 08:41; Admin Dose 1 EA; Start 07/18/18 at 09:00 Carbidopa/Levodopa (Sinemet (25/ 100)) 2.5 tab BID@1000,1800 GTB Last ad ministered on 07/20/18at 09:45; Admin Dose 2.5 TAB; Start 07/18/18 at 10:00 Carbidopa/Levodopa (Sinemet (25/ 100)) 2 tab BID@1400,2200 GTB Last administered on 07/20/18 13:09; Admin Dose 2 TAB; Start 07/17/18 at 22:00 Ibuprofen (Motrin) 800 mg HS PRN GTB MILD PAIN LEVEL 1-3 Last administered on 07/19/18 22:43; Admin Dose 800 MG; Start 07/17/18 at 23:45 Miscellaneous Information (Pending Santyl Order For Wound Care) This patient fl[place]... PRN PRN XX WOUND CARE; Start 07/18/18 at 08:00 Baclofen (Lioresal) 5 mg BID@0900,1400 GTB Last administered on 07/20/18at 13:08; Admin Dose 5 MG; Start 07/18/18 at 09:00 Baclofen (Lioresal) 15 mg HS@2300 GTB Last administered on 07/19/18 22:42; Admin Dose 15 MG; Start 07/18/18 at 23:00 Lisinopril (Zestril) 10 mg DAILY GTB Last administered on 07/20/18at 09:45; Admin Dose 10 MG; Start 07/20/18 at 09:30 Acetaminophen (Tylenol Liquid) 650 mg ONCE PRN GTB MILD PAIN(1-3)OR ELEVATED TEMP Last administered on 07/20/18at 10:35; Admin Dose 650 MG; Start 07/20/18 at 10:30; Stop 07/20/18 at 18:00 Baclofen (Lioresal) 10 mg DAILY@1800 GTB ; Start 07/20/18 at 22:00 DEREK DELGADILLO MD Jul 20, 2018 14:31
[2018-07-20] MEDS: IBUPROFEN 800 MG TAB GTB PRN (18:13)
[2018-07-20] MEDS ORDERED: BACLOFEN 10 MG TAB GTB SCH (22:00)
[2018-07-20] MEDS ORDERED: IBUPROFEN 400 MG TAB GTB ONE (23:30)
[2018-07-21] VITALS (15 sets, daily range): BP systolic 100–163; BP diastolic 60–102; PULSE 61–82; RESP 16–18
[2018-07-21] MEDS: METHYLPREDNISOLONE 40 MG INJ IV SCH (05:32)
[2018-07-21] MEDS: PIPER-TAZO 3.375 GM IV (PMX) 100 ML IVPB SCH ×3 (05:34→21:58)
[2018-07-21] MEDS: ROTIGOTINE TRANSDERM SCH (09:00)
[2018-07-21] MEDS: ENOXAPARIN 40 MG/0.4 ML SYG SC SCH (09:50)
[2018-07-21] MEDS: ENTACAPONE 200 MG TAB GTB SCH ×4 (10:11→21:57)
[2018-07-21] MEDS: GLYCOPYRROLATE 1 MG TAB GTB SCH ×2 (10:11→21:58)
[2018-07-21] MEDS: ACETAMINOPHEN 325 MG TAB PO PRN (10:11)
[2018-07-21] MEDS: LISINOPRIL 10 MG TAB GTB SCH (10:12)
[2018-07-21] MEDS: BACLOFEN 10 MG TAB GTB SCH ×2 (10:18→17:50)
[2018-07-21] MEDS: CARBIDOPA/LEVODOPA (25/100) TAB GTB SCH ×4 (10:20→21:57)
--- NOTE | 2018-07-21 14:04 | CONS ---
Consult Date/Type/Reason Admit Date/Time Jul 17, 2018 at 17:22 Initial Consult Date Type of Consult Pulmonary Date/Time of Note DATE: 07/21/18 TIME: 14:03 Subjective Still somnolent this morning. Requiring bilevel ventilation. Arterial blood gas on bilevel noted. Chest x-ray shows bibasilar atelectasis and/or effusions. Objective Vital Signs Date Temp Pulse Resp B/P (MAP) Pulse Ox O2 O2 Flow FiO2 Time Delivery Rate 07/21/18 82 100 80 13:18 07/21/18 97.6 18 129/77 11:47 (94) 07/21/18 Nasal 2.0 09:36 Cannula Intake and Output 07/20/18 07/20/18 07/21/18 1515:00 23:00 07:00 IntakeIntake Total 100 ml 1000 ml 1000 ml OutputOutput Total 1450 ml 900 ml BalanceBalance 100 ml -450 ml 100 ml Exam GENERAL: Frail elderly gentleman on bilevel ventilation appears comfortable at rest at present. VITAL SIGNS: per chart NECK: Supple. No JVD or lymphadenopathy. CARDIAC EXAM: S1, S2. No added sounds or murmurs. CHEST: clear bilaterally, No added sounds, rales or wheezes ABDOMEN: Soft, nontender. No guarding or rebound. EXTREMITIES: No cyanosis, clubbing or edema. NEUROLOGIC: Generalized weakness. No focal deficits. Vent Setting Fraction of Inspired Oxygen pe: 40 Results/Medications Result Diagram: 07/20/18 0953 07/20/18 0953 Results 24 hrs Laboratory Tests Test 07/21/18 12:45 Blood Gas Specimen Source Blood arterial Arterial Blood Date Drawn 07/21/2018 1:05:46 PM Arterial Blood pH (Temp corrected) 7.350 Arterial Blood pCO2 (Temp correct) 62.3 H Arterial Blood pO2 (Temp corrected) 266.7 H Arterial Blood HCO3 33.6 H Arterial Blood Base Excess 6.0 H Arterial Blood Oxygen Saturation 99.4 Leroy Test ACCEPTAB Arterial Blood Gas Puncture Site Right Radial Arterial Blood Carboxyhemoglobin 0.3 Arterial Blood Methemoglobin 0.4 Blood Gas A-a O2 Differential 238.3 H Oxyhemoglobin Percent 98.7 Blood Gas Temperature 37.0 Blood Gas Respiration Rate 14.0 Blood Gas Actual Respiration Rate 15 Blood Gas Modality MASK - BIPAP FiO2 80.0 Blood Gas Pressure Support 10 Blood Gas IPAP/EPAP Ratio 15/5 Blood Gas Notified Whom TM Blood Gas Notified Time 07/21/2018 1:13:30 PM Medications Current Medications IV Flush (NS 3 ml) 3 ml PER PROTOCOL IV ; Start 07/17/18 at 18:00 Enoxaparin Sodium (Lovenox) 40 mg DAILY SC Last administered on 07/21/18 09:50; Admin Dose 40 MG; Start 07/18/18 at 09:00 Piperacillin Sod/ Tazobactam Sod 100 ml @ 200 mls/hr Q8 IVPB Last administered on 07/21/18 13:05; Admin Dose 200 MLS/HR; Start 07/17/18 at 22:00 Albuterol (Proventil 0.083% (Neb)) 2.5 mg Q3H RESP THERAPY PRN NEB WHEEZING AND SOB; Start 07/17/18 at 18:30 Entacapone (Comtan) 200 mg QID GTB Last administered on 07/21/18 13:05; Admin Dose 200 MG; Start 07/17/18 at 21:00 Glycopyrrolate (Robinul) 1 mg BID GTB Last administered on 07/21/18at 10:11; Admin Dose 1 MG; Start 07/17/18 at 21:00 Polyethylene Glycol (Miralax) 8.5 gm DAILY PRN GTB NEEDED; Start 07/17/18 at 18:30 Non-Formulary Medication 1 ea DAILY TRANSDERM Last administered on 07/21/18 09:00; Admin Dose 1 EA; Start 07/18/18 at 09:00 Carbidopa/Levodopa (Sinemet (25/ 100)) 2.5 tab BID@1000,1800 GTB Last administered on 07/21/18at 10:20; Admin Dose 2.5 TAB; Start 07/18/18 at 10:00 Carbidopa/Levodopa (Sinemet (25/ 100)) 2 tab BID@1400,2200 GTB Last administered on 07/21/18 13:05; Admin Dose 2 TAB; Start 07/17/18 at 22:00 Ibuprofen (Motrin) 800 mg HS PRN GTB MILD PAIN LEVEL 1-3 Last administered on 07/20/18 18:13; Admin Dose 800 MG; Start 07/17/18 at 23:45 Miscellaneous Information (Pending Santyl Order For Wound Care) This patient florence... PRN PRN XX WOUND CARE; Start 07/18/18 at 08:00 Lisinopril (Zestril) 10 mg DAILY GTB Last administered on 07/21/18at 10:12; Admin Dose 10 MG; Start 07/20/18 at 09:30 Acetaminophen (Tylenol Tab) 650 mg Q4H PRN PO MILD PAIN(1-3)OR ELEVATED TEMP Last administered on 07/21/18at 10:11; Admin Dose 650 MG; Start 07/21/18 at 10:00 Baclofen (Lioresal) 5 mg BID@0900,1800 GTB ; Start 07/21/18 at 18:00 Assessment/Plan Hospital Course (Demo Recall) IMP: 1. Acute on chronic hypoxemic and hypercapnic resp insufficiency 2. Aspiration pneumonitis 3. Parkinson's RECS: 1. Aspiration precautions 2. Follow residuals 3. Abx 4. Titrate FiO2 as tolerated 5. Taper CS 6. Continue bilevel ventilation for now Repeat chest x-ray and ABG noted Prognosis remains guarded SANDHYA RODRIGUEZ MD, [facility] Jul 21, 2018 14:04
--- NOTE | 2018-07-21 16:47 | PN ---
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 who presents with resipratory distress and hypoxia - CT suggests possible bacterial pneumoina will continue zosyn and steroids IV - I suspect this is from aspiration, needs frequent suctioning and chest PT -- BIPAP if needed for chornic hypercpeneic respiratory failure, however this will make aspiration worse - Pulmonary consulted - Tube feeds Multisystems atrophy vs Parkinsons (unclear diagonsis) - continue home meds with entacapone, sinemet DNR/DNI Result Diagram: 07/20/18 0953 07/20/18 0953 Results 24hrs Laboratory Tests Test 07/21/18 12:45 Blood Gas Specimen Source Blood arterial Arterial Blood Date Drawn 07/21/2018 1:05:46 PM Arterial Blood pH (Temp corrected) 7.350 Arterial Blood pCO2 (Temp correct) 62.3 H Arterial Blood pO2 (Temp corrected) 266.7 H Arterial Blood HCO3 33.6 H Arterial Blood Base Excess 6.0 H Arterial Blood Oxygen Saturation 99.4 Leroy Test ACCEPTAB Arterial Blood Gas Puncture Site Right Radial Arterial Blood Carboxyhemoglobin 0.3 Arterial Blood Methemoglobin 0.4 Blood Gas A-a O2 Differential 238.3 H Oxyhemoglobin Percent 98.7 Blood Gas Temperature 37.0 Blood Gas Respiration Rate 14.0 Blood Gas Actual Respiration Rate 15 Blood Gas Modality MASK - BIPAP FiO2 80.0 Blood Gas Pressure Support 10 Blood Gas IPAP/EPAP Ratio 15/5 Blood Gas Notified Whom TM Blood Gas Notified Time 07/21/2018 1:13:30 PM Exam/Review of Systems Exam Vitals Vital Signs Date Temp Pulse Resp B/P (MAP) Pulse Ox O2 O2 Flow FiO2 Time Delivery Rate 07/21/18 99 100 16:14 07/21/18 66 16:09 07/21/18 98.3 16 100/60 15:47 (73) 07/21/18 Nasal 2.0 09:36 Cannula Intake and Output 07/20/18 07/20/18 07/21/18 1515:00 23:00 07:00 IntakeIntake Total 100 ml 1000 ml 1000 ml OutputOutput Total 1450 ml 900 ml BalanceBalance 100 ml -450 ml 100 ml Results Results 24hrs Laboratory Tests Test 07/21/18 12:45 Blood Gas Specimen Source Blood arterial Arterial Blood Date Drawn 07/21/2018 1:05:46 PM Arterial Blood pH (Temp corrected) 7.350 Arterial Blood pCO2 (Temp correct) 62.3 H Arterial Blood pO2 (Temp corrected) 266.7 H Arterial Blood HCO3 33.6 H Arterial Blood Base Excess 6.0 H Arterial Blood Oxygen Saturation 99.4 Leroy Test ACCEPTAB Arterial Blood Gas Puncture Site Right Radial Arterial Blood Carboxyhemoglobin 0.3 Arterial Blood Methemoglobin 0.4 Blood Gas A-a O2 Differential 238.3 H Oxyhemoglobin Percent 98.7 Blood Gas Temperature 37.0 Blood Gas Respiration Rate 14.0 Blood Gas Actual Respiration Rate 15 Blood Gas Modality MASK - BIPAP FiO2 80.0 Blood Gas Pressure Support 10 Blood Gas IPAP/EPAP Ratio 15/5 Blood Gas Notified Whom TM Blood Gas Notified Time 07/21/2018 1:13:30 PM Medications Medication Current Medications IV Flush (NS 3 ml) 3 ml PER PROTOCOL IV ; Start 07/17/18 at 18:00 Enoxaparin Sodium (Lovenox) 40 mg DAILY SC Last administered on 07/21/18at 09:50; Admin Dose 40 MG; Start 07/18/18 at 09:00 Piperacillin Sod/ Tazobactam Sod 100 ml @ 200 mls/hr Q8 IVPB Last administered on 07/21/18at 13:05; Admin Dose 200 MLS/HR; Start 07/17/18 at 22:00 Albuterol (Proventil 0.083% (Neb)) 2.5 mg Q3H RESP THERAPY PRN NEB WHEEZING AND SOB; Start 07/17/18 at 18:30 Entacapone (Comtan) 200 mg QID GTB Last administered on 07/21/18at 13:05; Admin Dose 200 MG; Start 07/17/18 at 21:00 Glycopyrrolate (Robinul) 1 mg BID GTB Last administered on 07/21/18at 10:11; Admin Dose 1 MG; Start 07/17/18 at 21:00 Polyethylene Glycol (Miralax) 8.5 gm DAILY PRN GTB NEEDED; Start 07/17/18 at 18:30 Non-Formulary Medication 1 ea DAILY TRANSDERM Last administered on 07/21/18at 09:00; Admin Dose 1 EA; Start 07/18/18 at 09:00 Carbidopa/Levodopa (Sinemet (25/ 100)) 2.5 tab BID@1000,1800 GTB Last administered on 07/21/18at 10:20; Admin Dose 2.5 TAB; Start 07/18/18 at 10:00 Carbidopa/Levodopa (Sinemet (25/ 100)) 2 tab BID@1400,2200 GTB Last administered on 07/21/18 13:05; Admin Dose 2 TAB; Start 07/17/18 at 22:00 Ibuprofen (Motrin) 800 mg HS PRN GTB MILD PAIN LEVEL 1-3 Last administered on 07/20/18 18:13; Admin Dose 800 MG; Start 07/17/18 at 23:45 Miscellaneous Information (Pending [facility] Order For Wound Care) This patient florence... PRN PRN XX WOUND CARE; Start 07/18/18 at 08:00 Lisinopril (Zestril) 10 mg DAILY GTB Last administered on 07/21/18 10:12; Ad min Dose 10 MG; Start 07/20/18 at 09:30 Acetaminophen (Tylenol Tab) 650 mg Q4H PRN PO MILD PAIN(1-3)OR ELEVATED TEMP Last administered on 07/21/18at 10:11; Admin Dose 650 MG; Start 07/21/18 at 10:00 Baclofen (Lioresal) 5 mg BID@0900,1800 GTB ; Start 07/21/18 at 18:00 DEVORA HOSKINS MD Jul 21, 2018 16:47
[2018-07-22] VITALS (12 sets, daily range): BP systolic 98–158; BP diastolic 57–87; PULSE 69–80; RESP 16–18
[2018-07-22] MEDS: PIPER-TAZO 3.375 GM IV (PMX) 100 ML IVPB SCH ×3 (05:43→21:29)
[2018-07-22] MEDS: GLYCOPYRROLATE 1 MG TAB GTB SCH ×2 (09:14→21:29)
[2018-07-22] MEDS: BACLOFEN 10 MG TAB GTB SCH ×2 (09:14→18:14)
[2018-07-22] MEDS: IBUPROFEN 800 MG TAB GTB PRN (09:14)
[2018-07-22] MEDS: ENTACAPONE 200 MG TAB GTB SCH ×4 (09:15→21:29)
[2018-07-22] MEDS: CARBIDOPA/LEVODOPA (25/100) TAB GTB SCH ×4 (09:15→21:29)
[2018-07-22] MEDS: ROTIGOTINE TRANSDERM SCH (09:16)
[2018-07-22] MEDS: LISINOPRIL 10 MG TAB GTB SCH (09:16)
[2018-07-22] MEDS: ENOXAPARIN 40 MG/0.4 ML SYG SC SCH (10:08)
--- NOTE | 2018-07-22 14:23 | PN ---
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 who presents with respiratory distress and hypoxia - CT suggests possible bacterial pneumonia will continue zosyn - I suspect this is from aspiration, needs frequent suctioning and chest PT - conintue HFNC 02 for chronic hyperpneic and hypoxic respiratory failure - Pulmonary consulted - Tube feeds Multisystems atrophy vs Parkinsons (unclear diagnosis) - continue home meds with entacapone, sinemet DNR/DNI Result Diagram: 07/20/18 0953 07/20/18 0953 Results 24hrs Laboratory Tests Test 07/22/18 07:00 Blood Gas Specimen Source Blood arterial Arterial Blood Date Drawn 07/22/2018 7:13:10 AM Arterial Blood pH (Temp corrected) 7.362 Arterial Blood pCO2 (Temp correct) 73.1 H Arterial Blood pO2 (Temp corrected) 113.6 H Arterial Blood HCO3 40.6 *H Arterial Blood Base Excess 12.0 H Arterial Blood Oxygen Saturation 98.2 Leroy Test ACCEPTAB Arterial Blood Gas Puncture Site Right Radial Arterial Blood Carboxyhemoglobin 0.3 Arterial Blood Methemoglobin 0.2 Blood Gas A-a O2 Differential 526.3 H Oxyhemoglobin Percent 97.7 Blood Gas Temperature 37.0 Blood Gas Modality HFNC FiO2 100.0 Blood Gas Critical Value Read Back ICONCEPTAYA RN Blood Gas Notified Whom TM Blood Gas Notified Time 07/22/2018 7:31:21 AM Subjective 24 Hr Interval Summary Free Text/Dictation Not much change to stuats Continues on HFNC Nonverbal Family pleased with progress Exam/Review of Systems Exam Vitals Vital Signs Date Temp Pulse Resp B/P (MAP) Pulse Ox O2 O2 Flow FiO2 Time Delivery Rate 07/22/18 100 90 13:15 07/22/18 77 12:05 07/22/18 98.5 16 126/79 11:23 (95) 07/22/18 Nasal 08:30 Cannula 07/21/18 2.0 17:29 Intake and Output 07/21/18 07/21/18 07/22/18 1515:00 23:00 07:00 IntakeIntake Total 100 ml 950 ml OutputOutput Total 500 ml 700 ml BalanceBalance 100 ml -500 ml 250 ml Exam Somenlent Breathign comfortably, thoguh shallow Rhonchi throughout RRR Soft nt nd Ext without edema Results Results 24hrs Laboratory Tests Test 07/22/18 07:00 Blood Gas Specimen Source Blood arterial Arterial Blood Date Drawn 07/22/2018 7:13:10 AM Arterial Blood pH (Temp corrected) 7.362 Arterial Blood pCO2 (Temp correct) 73.1 H Arterial Blood pO2 (Temp corrected) 113.6 H Arterial Blood HCO3 40.6 *H Arterial Blood Base Excess 12.0 H Arterial Blood Oxygen Saturation 98.2 Leroy Test ACCEPTAB Arterial Blood Gas Puncture Site Right Radial Arterial Blood Carboxyhemoglobin 0.3 Arterial Blood Methemoglobin 0.2 Blood Gas A-a O2 Differential 526.3 H Oxyhemoglobin Percent 97.7 Blood Gas Temperature 37.0 Blood Gas Modality HFNC FiO2 100.0 Blood Gas Critical Value Read Back ICONCEPCION RN Blood Gas Notified Whom TM Blood Gas Notified Time 07/22/2018 7:31:21 AM Medications Medication Current Medications IV Flush (NS 3 ml) 3 ml PER PROTOCOL IV ; Start 07/17/18 at 18:00 Enoxaparin Sodium (Lovenox) 40 mg DAILY SC Last administered on 07/22/18at 10:08; Admin Dose 40 MG; Start 07/18/18 at 09:00 Piperacillin Sod/ Tazobactam Sod 100 ml @ 200 mls/hr Q8 IVPB Last administered on 07/22/18at 13:13; Admin Dose 200 MLS/HR; Start 07/17/18 at 22:00 Albuterol (Proventil 0.083% (Neb)) 2.5 mg Q3H RESP THERAPY PRN NEB WHEEZING AND SOB; Start 07/17/18 at 18:30 Entacapone (Comtan) 200 mg QID GTB Last administered on 07/22/18at 13:12; Admin Dose 200 MG; Start 07/17/18 at 21:00 Glycopyrrolate (Robinul) 1 mg BID GTB Last administered on 07/22/18at 09:14; Admin Dose 1 MG; Start 07/17/18 at 21:00 Polyethylene Glycol (Miralax) 8.5 gm DAILY PRN GTB NEEDED; Start 07/17/18 at 18:30 Non-Formulary Medication 1 ea DAILY TRANSDERM Last administered on 07/22/18 09:16; Admin Dose 1 EA; Start 07/18/18 at 09:00 Carbidopa/Levodopa (Sinemet (25/ 100)) 2.5 tab BID@1000,1800 GTB Last administered on 07/22/18 09:15; Admin Dose 2.5 TAB; Start 07/18/18 at 10:00 Carbidopa/Levodopa (Sinemet (25/ 100)) 2 tab BID@1400,2200 GTB Last administered on 07/22/18 13:12; Admin Dose 2 TAB; Start 07/17/18 at 22:00 Ibuprofen (Motrin) 800 mg HS PRN GTB MILD PAIN LEVEL 1-3 Last administered on 07/22/18 09:14; Admin Dose 800 MG; Start 07/17/18 at 23:45 Miscellaneous Information (Pending [facility] Order For [facility]ound Care) This patient florence... PRN PRN XX WOUND CARE; Start 07/18/18 at 08:00 Lisinopril (Zestril) 10 mg DAILY GTB Last administered on 07/22/18 09:16; Admin Dose 10 MG; Start 07/20/18 at 09:30 Acetaminophen (Tylenol Tab) 650 mg Q4H PRN PO MILD PAIN(1-3)OR ELEVATED TEMP Last administered on 07/21/18 10:11; Admin Dose 650 MG; Start 07/21/18 at 10:00 Baclofen (Lioresal) 5 mg BID@0900,1800 GTB Last administered on 07/22/18 09:14; Admin Dose 5 MG; Start 07/21/18 at 18:00 DEVORA HOSKINS MD Jul 22, 2018 14:23
--- NOTE | 2018-07-22 15:07 | CONS ---
Consult Date/Type/Reason Admit Date/Time Jul 17, 2018 at 17:22 Initial Consult Date Type of Consult Pulmonary Date/Time of Note DATE: 07/22/18 TIME: 15:05 Subjective Chest x-ray demonstrates right lung opacification still requiring high flow O2. Objective Vital Signs Date Temp Pulse Resp B/P (MAP) Pulse Ox O2 O2 Flow FiO2 Time Delivery Rate 07/22/18 Nasal 14:25 Cannula 07/22/18 100 90 13:15 07/22/18 77 12:05 07/22/18 98.5 16 126/79 11:23 (95) 07/21/18 2.0 17:29 Intake and Output 07/21/18 07/21/18 07/22/18 1515:00 23:00 07:00 IntakeIntake Total 100 ml 950 ml OutputOutput Total 500 ml 700 ml BalanceBalance 100 ml -500 ml 250 ml Exam GENERAL: Frail elderly gentleman on bilevel ventilation appears comfortable at rest at present. VITAL SIGNS: per chart NECK: Supple. No JVD or lymphadenopathy. CARDIAC EXAM: S1, S2. No added sounds or murmurs. CHEST: clear bilaterally, No added sounds, rales or wheezes ABDOMEN: Soft, nontender. No guarding or rebound. EXTREMITIES: No cyanosis, clubbing or edema. NEUROLOGIC: Generalized weakness. No focal deficits. Vent Setting Fraction of Inspired Oxygen pe: 90 Results/Medications Result Diagram: 07/20/18 0953 07/20/18 0953 Results 24 hrs Laboratory Tests Test 07/22/18 07:00 Blood Gas Specimen Source Blood arterial Arterial Blood Date Drawn 07/22/2018 7:13:10 AM Arterial Blood pH (Temp corrected) 7.362 Arterial Blood pCO2 (Temp correct) 73.1 H Arterial Blood pO2 (Temp corrected) 113.6 H Arterial Blood HCO3 40.6 *H Arterial Blood Base Excess 12.0 H Arterial Blood Oxygen Saturation 98.2 Leroy Test ACCEPTAB Arterial Blood Gas Puncture Site Right Radial Arterial Blood Carboxyhemoglobin 0.3 Arterial Blood Methemoglobin 0.2 Blood Gas A-a O2 Differential 526.3 H Oxyhemoglobin Percent 97.7 Blood Gas Temperature 37.0 Blood Gas Modality HFNC FiO2 100.0 Blood Gas Critical Value Read Back ICONCEPCION RN Blood Gas Notified Whom TM Blood Gas Notified Time 07/22/2018 7:31:21 AM Medications Current Medications IV Flush (NS 3 ml) 3 ml PER PROTOCOL IV ; Start 07/17/18 at 18:00 Enoxaparin Sodium (Lovenox) 40 mg DAILY SC Last administered on 07/22/18 10:08; Admin Dose 40 MG; Start 07/18/18 at 09:00 Piperacillin Sod/ Tazobactam Sod 100 ml @ 200 mls/hr Q8 IVPB Last administered on 07/22/18 13:13; Admin Dose 200 MLS/HR; Start 07/17/18 at 22:00 Albuterol (Proventil 0.083% (Neb)) 2.5 mg Q3H RESP THERAPY PRN NEB WHEEZING AND SOB; Start 07/17/18 at 18:30 Entacapone (Comtan) 200 mg QID GTB Last administered on 07/22/18 13:12; Admin Dose 200 MG; Start 07/17/18 at 21:00 Glycopyrrolate (Robinul) 1 mg BID GTB Last administered on 07/22/18 09:14; Admin Dose 1 MG; Start 07/17/18 at 21:00 Polyethylene Glycol (Miralax) 8.5 gm DAILY PRN GTB NEEDED; Start 07/17/18 at 18:30 Non-Formulary Medication 1 ea DAILY TRANSDERM Last administered on 07/22/18 09:16; Admin Dose 1 EA; Start 07/18/18 at 09:00 Carbidopa/Levodopa (Sinemet (25/ 100)) 2.5 tab BID@1000,1800 GTB Last a dministered on 07/22/18 09:15; Admin Dose 2.5 TAB; Start 07/18/18 at 10:00 Carbidopa/Levodopa (Sinemet (25/ 100)) 2 tab BID@1400,2200 GTB Last administered on 07/22/18 13:12; Admin Dose 2 TAB; Start 07/17/18 at 22:00 Ibuprofen (Motrin) 800 mg HS PRN GTB MILD PAIN LEVEL 1-3 Last administered on 09:14; Admin Dose 800 MG; Start 07/17/18 at 23:45 Miscellaneous Information (Pending [facility] Order For Wound Care) This patient florence... PRN PRN XX WOUND CARE; Start 07/18/18 at 08:00 Lisinopril (Zestril) 10 mg DAILY GTB Last administered on 07/22/18at 09:16; Admin Dose 10 MG; Start 07/20/18 at 09:30 Acetaminophen (Tylenol Tab) 650 mg Q4H PRN PO MILD PAIN(1-3)OR ELEVATED TEMP Last administered on 07/21/18at 10:11; Admin Dose 650 MG; Start 07/21/18 at 10:00 Baclofen (Lioresal) 5 mg BID@0900,1800 GTB Last administered on 07/22/18at 09:14; Admin Dose 5 MG; Start 07/21/18 at 18:00 Assessment/Plan Hospital Course (Demo Recall) IMP: 1. Acute on chronic hypoxemic and hypercapnic resp insufficiency, mucous plugging likely secondary to right mainstem bronchus 2. Aspiration pneumonitis 3. Parkinson's RECS: 1. Aspiration precautions, continue Mucomyst chest PT and bronchodilator therapy 2. Follow residuals 3. Abx 4. Titrate FiO2 as tolerated 5. Taper CS Repeat chest x-ray and ABG in am. Prognosis remains guarded DNR noted. SANDHYA RODRIGUEZ MD, [facility] Jul 22, 2018 15:07
[2018-07-22] MEDS ORDERED: traMADol 50 MG TAB GTB PRN (23:18)
[2018-07-22] MEDS ORDERED: SOD CHLORIDE 0.9% 500 ML IV ONE (23:30)
[2018-07-22] MEDS: ACETAMINOPHEN 325 MG TAB PO PRN (23:49)
[2018-07-23] VITALS (35 sets, daily range): BP systolic 82–173; BP diastolic 55–91; PULSE 49–122; RESP 16–30
[2018-07-23] MEDS ORDERED: ALBUMIN HUMAN 25% 100 ML IV STA (01:13)
[2018-07-23] MEDS: PIPER-TAZO 3.375 GM IV (PMX) 100 ML IVPB SCH ×3 (06:34→23:36)
[2018-07-23] MEDS: CARBIDOPA/LEVODOPA (25/100) TAB GTB SCH ×4 (09:36→21:26)
[2018-07-23] MEDS: BACLOFEN 10 MG TAB GTB SCH ×3 (09:36→17:03)
[2018-07-23] MEDS: GLYCOPYRROLATE 1 MG TAB GTB SCH ×2 (09:36→21:22)
[2018-07-23] MEDS: ROTIGOTINE TRANSDERM SCH (09:36)
[2018-07-23] MEDS: ENTACAPONE 200 MG TAB GTB SCH ×4 (09:36→21:22)
[2018-07-23] MEDS: ENOXAPARIN 40 MG/0.4 ML SYG SC SCH (09:57)
[2018-07-23] MEDS: MULTIVITAMINS THERAPEUTIC TAB PO SCH (11:30)
[2018-07-23] MEDS ORDERED: MULTIVITAMINS/VIT C 0.5ML (PO SYG) PO SCH (11:30)
--- NOTE | 2018-07-23 11:41 | CONS ---
Consult Date/Type/Reason Admit Date/Time Jul 17, 2018 at 17:22 Initial Consult Date Type of Consult Pulmonary Date/Time of Note DATE: 07/23/18 TIME: 11:40 Subjective No significant changes this morning. Transient hypotension overnight. Still requiring bilevel ventilation. Chest x-ray demonstrates ongoing complete right lung opacification. Objective Vital Signs Date Temp Pulse Resp B/P (MAP) Pulse Ox O2 O2 Flow FiO2 Time Delivery Rate 07/23/18 97.6 75 24 139/77 99 BIPAP 11:16 (97) 07/23/18 50 05:22 07/21/18 2.0 17:29 Intake and Output 07/22/18 07/22/18 07/23/18 1515:00 23:00 07:00 IntakeIntake Total 100 ml OutputOutput Total 1150 ml BalanceBalance 100 ml -1150 ml Exam GENERAL: Frail elderly gentleman on bilevel ventilation appears comfortable at rest at present. VITAL SIGNS: per chart NECK: Supple. No JVD or lymphadenopathy. CARDIAC EXAM: S1, S2. No added sounds or murmurs. CHEST: clear bilaterally, No added sounds, rales or wheezes ABDOMEN: Soft, nontender. No guarding or rebound. EXTREMITIES: No cyanosis, clubbing or edema. NEUROLOGIC: Generalized weakness. No focal deficits. Vent Setting Fraction of Inspired Oxygen pe: 70 Results/Medications Result Diagram: 07/23/18 0510 07/23/18 0510 Results 24 hrs Laboratory Tests Test 07/23/18 01:47 07/23/18 05:10 07/23/18 07:00 Lactic Acid Level 1.0 Troponin I < 0.012 White Blood Count 7.8 Red Blood Count 3.52 L Hemoglobin 11.0 L Hematocrit 34.9 L Mean Corpuscular Volume 99.1 Mean Corpuscular Hemoglobin 31.3 Mean Corpuscular 31.5 L Hemoglobin Concent Red Cell Distribution Width 12.7 Platelet Count 171 # Mean Platelet Volume 10.0 Immature Granulocytes % 1.200 H Neutrophils % 79.1 H Lymphocytes % 11.7 L Monocytes % 6.0 Eosinophils % 1.7 Basophils % 0.3 Nucleated Red Blood Cells % 0.0 Immature Granulocytes # 0.090 H Neutrophils # 6.2 Lymphocytes # 0.9 Monocytes # 0.5 Eosinophils # 0.1 Basophils # 0.0 Nucleated Red Blood Cells # 0.0 Sodium Level 145 H Potassium Level 4.3 Chloride Level 99 Carbon Dioxide Level 41 *H Anion Gap 5 Blood Urea Nitrogen 21 H Creatinine 0.71 Est Glomerular Filtrat Rate mL/min Glucose Level 108 Calcium Level 8.8 Phosphorus Level 2.9 Magnesium Level 2.5 Blood Gas Specimen Source Blood arterial Arterial Blood Date Drawn 07/23/2018 10:05:00 AM Arterial Blood pH 7.351 (Temp corrected) Arterial Blood pCO2 72.9 H (Temp correct) Arterial Blood pO2 76.1 L (Temp corrected) Arterial Blood HCO3 39.4 H Arterial Blood Base Excess 11.5 H Arterial Blood 94.6 L Oxygen Saturation Leroy Test ACCEPTAB Arterial Blood Gas Right Radial Puncture Site Arterial 0.3 Blood Carboxyhemoglobin Arterial Blood 0.4 Methemoglobin Blood Gas A-a O2 198.4 H Differential Oxyhemoglobin Percent 93.9 Blood Gas Temperature 37.0 Blood Gas Respiration Rate 14.0 Blood Gas Actual 24 Respiration Rate Blood Gas Modality MASK - BIPAP FiO2 50.0 Blood Gas Pressure Support 10 Blood Gas IPAP/EPAP Ratio 15/5 Blood Gas Notified Whom DT Blood Gas Notified Time 07/23/2018 10:16:00 AM Medications Current Medications IV Flush (NS 3 ml) 3 ml PER PROTOCOL IV ; Start 07/17/18 at 18:00 Enoxaparin Sodium (Lovenox) 40 mg DAILY SC Last administered on 07/23/18at 09:57; Admin Dose 40 MG; Start 07/18/18 at 09:00 Piperacillin Sod/ Tazobactam Sod 100 ml @ 200 mls/hr Q8 IVPB Last administered on 07/23/18at 06:34; Admin Dose 200 MLS/HR; Start 07/17/18 at 22:00 Albuterol (Proventil 0.083% (Neb)) 2.5 mg Q3H RESP THERAPY PRN NEB WHEEZING AND SOB; Start 07/17/18 at 18:30 Entacapone (Comtan) 200 mg QID GTB Last administered on 07/23/18at 09:36; Admin Dose 200 MG; Start 07/17/18 at 21:00 Glycopyrrolate (Robinul) 1 mg BID GTB Last administered on 07/23/18at 09:36; Admin Dose 1 MG; Start 07/17/18 at 21:00 Polyethylene Glycol (Miralax) 8.5 gm DAILY PRN GTB NEEDED; Start 07/17/18 at 18:30 Non-Formulary Medication 1 ea DAILY TRANSDERM Last administered on 07/23/18at 09:36; Admin Dose 1 EA; Start 07/18/18 at 09:00 Carbidopa/Levodopa (Sinemet (25/ 100)) 2.5 tab BID@1000,1800 GTB Last administered on 07/23/18 09:36; Admin Dose 2.5 TAB; Start 07/18/18 at 10:00 Carbidopa/Levodopa (Sinemet (25/ 100)) 2 tab BID@1400,2200 GTB Last administered on 07/22/18 21:29; Admin Dose 2 TAB; Start 07/17/18 at 22:00 Miscellaneous Information (Pending [facility] Order For Wound Care) This patient florence... PRN PRN XX WOUND CARE; Start 07/18/18 at 08:00 Acetaminophen (Tylenol Tab) 650 mg Q4H PRN PO MILD PAIN(1-3)OR ELEVATED TEMP Last administered on 07/22/18at 23:49; Admin Dose 650 MG; Start 07/21/18 at 10:00 Baclofen (Lioresal) 5 mg BID@0900,1800 GTB Last administered on 07/23/18 09:36; Admin Dose 5 MG; Start 07/21/18 at 18:00 Tramadol HCl (Ultram) 50 mg HS PRN GTB MODERATE PAIN LEVEL 4-6; Start 07/22/18 at 23:18 Multivitamins Therapeutic (Theragran) 1 tab DAILY PO ; Start 07/23/18 at 11:30 Assessment/Plan Hospital Course (Demo Recall) IMP: 1. Acute on chronic hypoxemic and hypercapnic resp insufficiency, mucous plugging likely secondary to right mainstem bronchus 2. Aspiration pneumonitis 3. Parkinson's RECS: 1. Transfer to intensive care unit for chest PT and pulmonary toilet 2. Continue Mucomyst and bronchodilators 3. Continue aspiration precautions 4. Steroid taper 5. Patient currently not stable for bronchoscopy as this would require intubation mechanical ventilation which is not consistent with patient's and family's wishes. Overall prognosis still guarded. Critical care time 40 minutes. Long discussion with family at bedside. SANDHYA RODRIGUEZ MD, [facility] Jul 23, 2018 11:41
--- NOTE | 2018-07-23 15:59 | PN ---
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 who presents with respiratory distress and hypoxia Acute on chronic hypercapenic/hypoxic respiratory failure - CT suggests possible bacterial pneumonia will continue zosyn - I suspect this is from aspiration, needs frequent suctioning and chest PT - conintue HFNC 02 for chronic hyperpneic and hypoxic respiratory failure - Pulmonary consulted - Tube feeds - Chest percussion Multisystems atrophy vs Parkinsons (unclear diagnosis) - continue home meds with entacapone, sinemet DNR/DNI Result Diagram: 07/23/18 0510 07/23/18 0510 Results 24hrs Laboratory Tests Test 07/23/18 01:47 07/23/18 05:10 07/23/18 07:00 Lactic Acid Level 1.0 Troponin I < 0.012 White Blood Count 7.8 Red Blood Count 3.52 L Hemoglobin 11.0 L Hematocrit 34.9 L Mean Corpuscular Volume 99.1 Mean Corpuscular Hemoglobin 31.3 Mean Corpuscular 31.5 L Hemoglobin Concent Red Cell Distribution Width 12.7 Platelet Count 171 # Mean Platelet Volume 10.0 Immature Granulocytes % 1.200 H Neutrophils % 79.1 H Lymphocytes % 11.7 L Monocytes % 6.0 Eosinophils % 1.7 Basophils % 0.3 Nucleated Red Blood Cells % 0.0 Immature Granulocytes # 0.090 H Neutrophils # 6.2 Lymphocytes # 0.9 Monocytes # 0.5 Eosinophils # 0.1 Basophils # 0.0 Nucleated Red Blood Cells # 0.0 Sodium Level 145 H Potassium Level 4.3 Chloride Level 99 Carbon Dioxide Level 41 *H Anion Gap 5 Blood Urea Nitrogen 21 H Creatinine 0.71 Est Glomerular Filtrat Rate mL/min Glucose Level 108 Calcium Level 8.8 Phosphorus Level 2.9 Magnesium Level 2.5 Blood Gas Specimen Source Blood arterial Arterial Blood Date Drawn 07/23/2018 10:05:00 AM Arterial Blood pH 7.351 (Temp corrected) Arterial Blood pCO2 72.9 H (Temp correct) Arterial Blood pO2 76.1 L (Temp corrected) Arterial Blood HCO3 39.4 H Arterial Blood Base Excess 11.5 H Arterial Blood 94.6 L Oxygen Saturation Leroy Test ACCEPTAB Arterial Blood Gas Right Radial Puncture Site Arterial 0.3 Blood Carboxyhemoglobin Arterial Blood 0.4 Methemoglobin Blood Gas A-a O2 198.4 H Differential Oxyhemoglobin Percent 93.9 Blood Gas Temperature 37.0 Blood Gas Respiration Rate 14.0 Blood Gas Actual 24 Respiration Rate Blood Gas Modality MASK - BIPAP FiO2 50.0 Blood Gas Pressure Support 10 Blood Gas IPAP/EPAP Ratio 15/5 Blood Gas Notified Whom DT Blood Gas Notified Time 07/23/2018 10:16:00 AM Subjective 24 Hr Interval Summary Free Text/Dictation Worsening hypercapnea Transferred to ICU for chest percussion Continued on bipap Exam/Review of Systems Exam Vitals Vital Signs Date Temp Pulse Resp B/P (MAP) Pulse Ox O2 O2 Flow FiO2 Time Delivery Rate 07/23/18 74 18 156/91 99 BIPAP 15:00 (112) 07/23/18 30 15:00 07/23/18 98.0 13:00 07/21/18 2.0 17:29 Intake and Output 07/22/18 07/22/18 07/23/18 1515:00 23:00 07:00 IntakeIntake Total 100 ml OutputOutput Total 1150 ml BalanceBalance 100 ml -1150 ml Exam Nonverbal Breathing comfortably but shallow tidal volumes Rhonchi anteriorly Results Results 24hrs Laboratory Tests Test 07/23/18 01:47 07/23/18 05:10 07/23/18 07:00 Lactic Acid Level 1.0 Troponin I < 0.012 White Blood Count 7.8 Red Blood Count 3.52 L Hemoglobin 11.0 L Hematocrit 34.9 L Mean Corpuscular Volume 99.1 Mean Corpuscular Hemoglobin 31.3 Mean Corpuscular 31.5 L Hemoglobin Concent Red Cell Distribution Width 12.7 Platelet Count 171 # Mean Platelet Volume 10.0 Immature Granulocytes % 1.200 H Neutrophils % 79.1 H Lymphocytes % 11.7 L Monocytes % 6.0 Eosinophils % 1.7 Basophils % 0.3 Nucleated Red Blood Cells % 0.0 Immature Granulocytes # 0.090 H Neutrophils # 6.2 Lymphocytes # 0.9 Monocytes # 0.5 Eosinophils # 0.1 Basophils # 0.0 Nucleated Red Blood Cells # 0.0 Sodium Level 145 H Potassium Level 4.3 Chloride Level 99 Carbon Dioxide Level 41 *H Anion Gap 5 Blood Urea Nitrogen 21 H Creatinine 0.71 Est Glomerular Filtrat Rate mL/min Glucose Level 108 Calcium Level 8.8 Phosphorus Level 2.9 Magnesium Level 2.5 Blood Gas Specimen Source Blood arterial Arterial Blood Date Drawn 07/23/2018 10:05:00 AM Arterial Blood pH 7.351 (Temp corrected) Arterial Blood pCO2 72.9 H (Temp correct) Arterial Blood pO2 76.1 L (Temp corrected) Arterial Blood HCO3 39.4 H Arterial Blood Base Excess 11.5 H Arterial Blood 94.6 L Oxygen Saturation Leroy Test ACCEPTAB Arterial Blood Gas Right Radial Puncture Site Arterial 0.3 Blood Carboxyhemoglobin Arterial Blood 0.4 Methemoglobin Blood Gas A-a O2 198.4 H Differential Oxyhemoglobin Percent 93.9 Blood Gas Temperature 37.0 Blood Gas Respiration Rate 14.0 Blood Gas Actual 24 Respiration Rate Blood Gas Modality MASK - BIPAP FiO2 50.0 Blood Gas Pressure Support 10 Blood Gas IPAP/EPAP Ratio 15/5 Blood Gas Notified Whom DT Blood Gas Notified Time 07/23/2018 10:16:00 AM Medications Medication Current Medications IV Flush (NS 3 ml) 3 ml PER PROTOCOL IV ; Start 07/17/18 at 18:00 Enoxaparin Sodium (Lovenox) 40 mg DAILY SC Last administered on 07/23/18at 09:57; Admin Dose 40 MG; Start 07/18/18 at 09:00 Piperacillin Sod/ Tazobactam Sod 100 ml @ 200 mls/hr Q8 IVPB Last administered on 07/23/18at 13:28; Admin Dose 200 MLS/HR; Start 07/17/18 at 22:00 Albuterol (Proventil 0.083% (Neb)) 2.5 mg Q3H RESP THERAPY PRN NEB WHEEZING AND SOB; Start 07/17/18 at 18:30 Entacapone (Comtan) 200 mg QID GTB Last administered on 07/23/18at 14:22; Admin Dose 200 MG; Start 07/17/18 at 21:00 Glycopyrrolate (Robinul) 1 mg BID GTB Last administered on 07/23/18at 09:36; Admin Dose 1 MG; Start 07/17/18 at 21:00 Polyethylene Glycol (Miralax) 8.5 gm DAILY PRN GTB NEEDED; Start 07/17/18 at 18:30 Non-Formulary Medication 1 ea DAILY TRANSDERM Last administered on 07/23/18 09:36; Admin Dose 1 EA; Start 07/18/18 at 09:00 Carbidopa/Levodopa (Sinemet (25/ 100)) 2.5 tab BID@1000,1800 GTB Last adm inistered on 07/23/18 09:36; Admin Dose 2.5 TAB; Start 07/18/18 at 10:00 Carbidopa/Levodopa (Sinemet (25/ 100)) 2 tab BID@1400,2200 GTB Last administered on 07/23/18at 13:29; Admin Dose 2 TAB; Start 07/17/18 at 22:00 Miscellaneous Information (Pending [facility] Order For Wound Care) This patient florence... PRN PRN XX WOUND CARE; Start 07/18/18 at 08:00 Acetaminophen (Tylenol Tab) 650 mg Q4H PRN PO MILD PAIN(1-3)OR ELEVATED TEMP Last administered on 07/22/18at 23:49; Admin Dose 650 MG; Start 07/21/18 at 10:00 Baclofen (Lioresal) 5 mg BID@0900,1800 GTB Last administered on 07/23/18 09:36; Admin Dose 5 MG; Start 07/21/18 at 18:00 Tramadol HCl (Ultram) 50 mg HS PRN GTB MODERATE PAIN LEVEL 4-6; Start 07/22/18 at 23:18 Multivitamins Therapeutic (Theragran) 1 tab DAILY PO ; Start 07/23/18 at 11:30 DEVORA HOSKINS MD Jul 23, 2018 15:59
[2018-07-23] MEDS: BALSAM PERU/CASTOR OIL 60 GM TUBE TOP SCH (21:21)
[2018-07-24] VITALS (29 sets, daily range): BP systolic 103–176; BP diastolic 64–94; PULSE 59–70; RESP 16–48
[2018-07-24] MEDS: PIPER-TAZO 3.375 GM IV (PMX) 100 ML IVPB SCH ×3 (05:37→21:09)
[2018-07-24] MEDS: ENTACAPONE 200 MG TAB GTB SCH ×4 (08:42→21:09)
[2018-07-24] MEDS: MULTIVITAMINS THERAPEUTIC TAB PO SCH (08:42)
[2018-07-24] MEDS: GLYCOPYRROLATE 1 MG TAB GTB SCH ×2 (08:42→21:09)
[2018-07-24] MEDS: BALSAM PERU/CASTOR OIL 60 GM TUBE TOP SCH ×2 (08:43→21:10)
[2018-07-24] MEDS: ENOXAPARIN 40 MG/0.4 ML SYG SC SCH (08:48)
[2018-07-24] MEDS: ROTIGOTINE TRANSDERM SCH (09:00)
[2018-07-24] MEDS: CARBIDOPA/LEVODOPA (25/100) TAB GTB SCH ×4 (09:54→21:22)
[2018-07-24] MEDS: ACETAMINOPHEN 325 MG TAB PO PRN ×3 (10:23→18:38)
--- NOTE | 2018-07-24 11:06 | CONS ---
Consult Date/Type/Reason Admit Date/Time Jul 17, 2018 at 17:22 Initial Consult Date Type of Consult Pulmonary Date/Time of Note DATE: 07/24/18 TIME: 11:05 Subjective Significant improvement following transfer to ICU. Chest x-ray shows improved right-sided infiltrate with no residual atelectasis right base. Clinically patient also improved with decreasing O2 requirements. Objective Vital Signs Date Temp Pulse Resp B/P (MAP) Pulse Ox O2 O2 Flow FiO2 Time Delivery Rate 07/24/18 27 176/94 94 High Flow 10:25 (121) 07/24/18 97.6 65 08:55 07/24/18 30 05:33 07/23/18 25.0 21:00 Intake and Output 07/23/18 07/23/18 07/24/18 1515:00 23:00 07:00 IntakeIntake Total 1900 ml 275 ml 350 ml OutputOutput Total 1500 ml 1400 ml 1650 ml BalanceBalance 400 ml -1125 ml -1300 ml Exam GENERAL: Frail elderly gentleman on bilevel ventilation appears comfortable at rest at present. VITAL SIGNS: per chart NECK: Supple. No JVD or lymphadenopathy. CARDIAC EXAM: S1, S2. No added sounds or murmurs. CHEST: clear bilaterally, No added sounds, rales or wheezes ABDOMEN: Soft, nontender. No guarding or rebound. EXTREMITIES: No cyanosis, clubbing or edema. NEUROLOGIC: Generalized weakness. No focal deficits. Vent Setting Fraction of Inspired Oxygen pe: 30 Results/Medications Result Diagram: 07/24/18 0734 07/24/18 0734 Results 24 hrs Laboratory Tests Test 07/24/18 07:34 White Blood Count 8.1 Red Blood Count 4.35 #L Hemoglobin 13.4 #L Hematocrit 42.6 # Mean Corpuscular Volume 97.9 Mean Corpuscular Hemoglobin 30.8 Mean Corpuscular Hemoglobin Concent 31.5 L Red Cell Distribution Width 12.6 Platelet Count 174 Mean Platelet Volume 10.0 Immature Granulocytes % 1.100 H Neutrophils % 79.1 H Lymphocytes % 10.5 L Monocytes % 6.0 Eosinophils % 2.9 Basophils % 0.4 Nucleated Red Blood Cells % 0.0 Immature Granulocytes # 0.090 H Neutrophils # 6.4 Lymphocytes # 0.9 Monocytes # 0.5 Eosinophils # 0.2 Basophils # 0.0 Nucleated Red Blood Cells # 0.0 Sodium Level 145 H Potassium Level 4.6 Chloride Level 99 Carbon Dioxide Level 39 H Anion Gap 7 Blood Urea Nitrogen 19 Creatinine 0.52 L Est Glomerular Filtrat Rate mL/min Glucose Level 97 Calcium Level 9.3 Medications Current Medications IV Flush (NS 3 ml) 3 ml PER PROTOCOL IV ; Start 07/17/18 at 18:00 Enoxaparin Sodium (Lovenox) 40 mg DAILY SC Last administered on 07/24/18 08:48; Admin Dose 40 MG; Start 07/18/18 at 09:00 Piperacillin Sod/ Tazobactam Sod 100 ml @ 200 mls/hr Q8 IVPB Last administered on 07/24/18 05:37; Admin Dose 200 MLS/HR; Start 07/17/18 at 22:00 Entacapone (Comtan) 200 mg QID GTB Last administered on 07/24/18 08:42; Admin Dose 200 MG; Start 07/17/18 at 21:00 Glycopyrrolate (Robinul) 1 mg BID GTB Last administered on 07/24/18 08:42; Admin Dose 1 MG; Start 07/17/18 at 21:00 Polyethylene Glycol (Miralax) 8.5 gm DAILY PRN GTB NEEDED; Start 07/17/18 at 18:30 Non-Formulary Medication 1 ea DAILY TRANSDERM Last administered on 07/24/18 09:00; Admin Dose 1 EA; Start 07/18/18 at 09:00 Carbidopa/Levodopa (Sinemet (25/ 100)) 2.5 tab BID@1000,1800 GTB Last administered on 07/24/18 09:54; Admin Dose 2.5 TAB; Start 07/18/18 at 10:00 Carbidopa/Levodopa (Sinemet (25/ 100)) 2 tab BID@1400,2200 GTB Last administered on 07/23/18 21:26; Admin Dose 2 TAB; Start 07/17/18 at 22:00 Miscellaneous Information ([facility]) This patient florence... PRN PRN XX WOUND CARE; Start 07/18/18 at 08:00 Acetaminophen (Tylenol Tab) 650 mg Q4H PRN PO MILD PAIN(1-3)OR ELEVATED TEMP Last administered on 3/21/19at 10:23; Admin Dose 650 MG; Start 07/21/18 at 10:00 Baclofen (Lioresal) 5 mg BID@0900,1800 GTB Last administered on 07/23/18at 09:36; Admin Dose 5 MG; Start 07/21/18 at 18:00; Status Hold Tramadol HCl (Ultram) 50 mg HS PRN GTB MODERATE PAIN LEVEL 4-6; Start 07/22/18 at 23:18 Multivitamins Therapeutic (Theragran) 1 tab DAILY PO Last administered on 07/24/18at 08:42; Admin Dose 1 TAB; Start 07/23/18 at 11:30 Albuterol (Proventil 0.083% (Neb)) 2.5 mg Q3H RESP THERAPY PRN NEB WHEEZING AND SOB; Start 07/23/18 at 18:30 Assessment/Plan Hospital Course (Demo Recall) IMP: 1. Acute on chronic hypoxemic and hypercapnic resp insufficiency, mucous plugging likely secondary to right mainstem bronchus improved with chest PT and Mucomyst 2. Aspiration pneumonitis 3. Parkinson's RECS: 1. Continue ICU monitoring with chest percussion every 6 2. Continue Mucomyst and bronchodilators 3. Continue aspiration precautions 4. Steroid taper 5. Continue tube feeding Critical care time 40 minutes. Long discussion with family at bedside. SANDHYA RODRIGUEZ MD, [facility] Jul 24, 2018 11:06
--- NOTE | 2018-07-24 12:45 | CONS ---
Assessment/Plan Assessment/Plan Hospital Course (Demo Recall) SIRS/Sepsis Mucous plugging/aspiration pneumonitis History of preserved left ventricular ejection fraction Severe Parkinson's Hypertension -Patient admitted with respiratory pathology including mucous plugging and possible aspiration pneumonia. -Discussion with family, but pressure initially was labile currently has been hypertensive. There is concern is elevated blood pressure is because of discomfort and pain. Patient was given Tylenol this morning and blood pressure improved significantly. -Patient has been on no blood pressure medications at home his vitals have been stable as per the family prior to this recent illness. Given the concern of pain and discomfort being the cause of his hypertension as well as history of labile blood pressure, would hold off on sending medications at the current time. Would order as needed hydralazine the current time. Consultation Date/Type/Reason Admit Date/Time Jul 17, 2018 at 17:22 Type of Consult Cardiology Reason for Consultation Hypertension Date/Time of Note DATE: 07/24/18 TIME: 12:40 Hx of Present Illness This is a 72-year-old male past medical history of Parkinson's, dysphagia who presents with worsening respiratory status. Patient underwent workup for presumed aspiration pneumonia and mucous plugging. Patient has been having labile blood pressure as per the family. Blood pressure has been more elevated today and for this reason cardiology condition was requested. As patient unable to communicate verbally. Discussion with family at bedside and chinese teacher, they can tell by his body language. He does appear to them uncomfortable currently but not in severe pain. As per the family, he has been weaned off his blood pressure medications at home. He does have full-time care. Blood pressure and saturations at home have been within normal limits until this most recent illness. 12 point review of systems was performed with all pertinent positives negatives mentioned above and all else is negative with information obtained from medical chart, family and chinese teacher Past Medical History Dyslipidemia Parkinson's Home Meds Reported Medications [Vitamin C] No Conflict Check, 1000 MG GTB DAILY 07/17/18 Ibuprofen* (Ibuprofen*) 200 Mg Capsule, 800 MG GTB QHS PRN for PAIN, CAP 07/17/18 Rotigotine (NEUPRO) 1 Each Patch.td24, 1 EACH TD DAILY 6MG 07/17/18 Polyethylene Glycol* (Miralax*) 17 Gm Powd.pack, 8.5 GM GTB DAILY PRN for NEEDED, #30 PACKET 07/17/18 Baclofen* (Baclofen*) 10 Mg Tablet, 10 MG GTB TID, TAB TAKE 5MG-QAM AND 5MG-QPM, 15MG-QHS 07/17/18 Glycopyrrolate* (Glycopyrrolate*) 1 Mg Tablet, 1 MG GTB BID, TAB 07/17/18 Albuterol Sulfate* (Albuterol Sulfate* Neb) 0.083%-3 Ml Neb, 2.5 MG NEB Q3H PRN for WHEEZING AND SOB, #30 VIAL 07/17/18 Entacapone* (Entacapone*) 200 Mg Tablet, 200 MG GTB QID, TAB 07/17/18 Aspirin* (Aspirin* EC) 81 Mg Tablet.dr, 81 MG GTB DAILY, TAB 07/17/18 Carbidopa/Levodopa (CARBIDOPA-LEVO 25-100 MG ODT) 1 Each Tab.rapdis, 2.5 TAB GTB BID, #90 TAB 10-AM AND 6-PM 07/17/18 Carbidopa/Levodopa (CARBIDOPA-LEVO 25-100 MG ODT) 1 Each Tab.rapdis, 2 TAB GTB BID, #120 TAB 2-PM AND 10-PM 07/17/18 Discontinued Reported Medications Aspirin* (Aspirin* EC) 81 Mg Tablet.dr, 81 MG PO DAILY, TAB 04/23/17 Simvastatin* (Zocor*) 10 Mg Tablet, 10 MG PO QHS, #30 TAB 04/23/17 Entacapone* (Entacapone*) 200 Mg Tablet, 200 MG PO QID, TAB TAKE QID WITH CARBIDOPA/LEVODOPA 04/23/17 Carbidopa/Levodopa (CARBIDOPA-LEVO 25-100 MG ODT) 1 Each Tab.rapdis, 2 TAB PO QID, #120 TAB take 2+1/2 tab-10am, 2tab-2pm, 2+1/2 tab-6pm, 2tab-10pm 04/23/17 Discontinued Scripts Ascorbic Acid (Vitamin C) 500 Mg Tab, 500 MG NGT DAILY, #30 TAB 2 Refills Prov:MILLICENT MELGAR 05/02/17 Polyethylene Glycol* (Miralax*) 17 Gm Powd.pack, 8.5 GM GTB DAILY, #30 2 Refills Prov:MILLICENT MELGAR S. 05/02/17 Famotidine* (Famotidine*) 20 Mg Tablet, 20 MG GTB HS, #30 TAB 2 Refills Prov:MILLICENT MELGAR S. 05/02/17 Ferrous Sulfate (Ferrous Sulfate) 300 Mg/5 Ml Liquid, 300 MG GTB DAILY for 30 Days, 2 Refills Prov:MILLICENT MELGAR S. 05/02/17 Lisinopril* (Lisinopril*) 10 Mg Tablet, 10 MG PO DAILY, #30 TAB 2 Refills Prov:MILLICENT MELGAR S. 05/02/17 Albuterol Sulfate* (Albuterol Sulfate* Neb) 0.083%-3 Ml Neb, 2.5 MG NEB Q4 PRN for SHORTNESS OF BREATH, #30 EA Prov:ROBERT MORENO MD 04/23/17 Medications Current Medications IV Flush (NS 3 ml) 3 ml PER PROTOCOL IV ; Start 07/17/18 at 18:00 Enoxaparin Sodium (Lovenox) 40 mg DAILY SC Last administered on 07/24/18at 08:48; Admin Dose 40 MG; Start 07/18/18 at 09:00 Piperacillin Sod/ Tazobactam Sod 100 ml @ 200 mls/hr Q8 IVPB Last administered on 07/24/18at 05:37; Admin Dose 200 MLS/HR; Start 07/17/18 at 22:00 Entacapone (Comtan) 200 mg QID GTB Last administered on 07/24/18at 08:42; Admin Dose 200 MG; Start 07/17/18 at 21:00 Glycopyrrolate (Robinul) 1 mg BID GTB Last administered on 07/24/18at 08:42; Admin Dose 1 MG; Start 07/17/18 at 21:00 Polyethylene Glycol (Miralax) 8.5 gm DAILY PRN GTB NEEDED; Start 07/17/18 at 18:30 Non-Formulary Medication 1 ea DAILY TRANSDERM Last administered on 07/24/18at 09:00; Admin Dose 1 EA; Start 07/18/18 at 09:00 Carbidopa/Levodopa (Sinemet (25/ 100)) 2.5 tab BID@1000,1800 GTB Last administered on 07/24/18at 09:54; Admin Dose 2.5 TAB; Start 07/18/18 at 10:00 Carbidopa/Levodopa (Sinemet (25/ 100)) 2 tab BID@1400,2200 GTB Last administered on 07/23/18at 21:26; Admin Dose 2 TAB; Start 07/17/18 at 22:00 Miscellaneous Information (Pending [facility] Order For Wound Care) This patient florence... PRN PRN XX WOUND CARE; Start 07/18/18 at 08:00 Acetaminophen (Tylenol Tab) 650 mg Q4H PRN PO MILD PAIN(1-3)OR ELEVATED TEMP Last administered on 07/24/18at 10:23; Admin Dose 650 MG; Start 07/21/18 at 10:00 Baclofen (Lioresal) 5 mg BID@0900,1800 GTB Last administered on 07/23/18at 09:36; Admin Dose 5 MG; Start 07/21/18 at 18:00; Status Hold Tramadol HCl (Ultram) 50 mg HS PRN GTB MODERATE PAIN LEVEL 4-6; Start 07/22/18 at 23:18 Multivitamins Therapeutic (Theragran) 1 tab DAILY PO Last administered on 07/24/18at 08:42; Admin Dose 1 TAB; Start 07/23/18 at 11:30 Albuterol (Proventil 0.083% (Neb)) 2.5 mg Q3H RESP THERAPY PRN NEB WHEEZING AND SOB; Start 07/23/18 at 18:30 Allergies: Coded Allergies: clonidine (Verified Allergy, Unknown, 07/17/18) Past Surgical History Past Surgical Hx: other (Including but not limited to PEG placement) Family History Significant Family History: no pertinent family hx Social History Alcohol Use: none Smoking Status: Former smoker Drug Use: none Exam/Review of Systems Vital Signs Vitals Vital Signs Date Temp Pulse Resp B/P (MAP) Pulse Ox O2 O2 Flow FiO2 Time Delivery Rate 07/24/18 64 29 144/72 95 High Flow 12:19 (96) 07/24/18 97.6 08:55 07/24/18 30 05:33 07/23/18 25.0 21:00 Intake and Output 07/23/18 07/23/18 07/24/18 1515:00 23:00 07:00 IntakeIntake Total 1900 ml 275 ml 350 ml OutputOutput Total 1500 ml 1400 ml 1650 ml BalanceBalance 400 ml -1125 ml -1300 ml Exam Constitutional: alert (Looks to me when his name is called, not able to verbalize, family bedside, no apparent distress) Head: normocephalic Respiratory: other (Coarse breath sounds bilaterally, scattered minimal rhonchi, no wheezing) Cardiovascular: regular rate and rhythm (S1-S2 heard) Gastrointestinal: soft, non-tender, bowel sounds Extremities: edema Labs Result Diagram: 07/24/18 0734 07/24/18 0734 Results 24hrs Laboratory Tests Test 07/24/18 07:34 White Blood Count 8.1 Red Blood Count 4.35 #L Hemoglobin 13.4 #L Hematocrit 42.6 # Mean Corpuscular Volume 97.9 Mean Corpuscular Hemoglobin 30.8 Mean Corpuscular Hemoglobin Concent 31.5 L Red Cell Distribution Width 12.6 Platelet Count 174 Mean Platelet Volume 10.0 Immature Granulocytes % 1.100 H Neutrophils % 79.1 H Lymphocytes % 10.5 L Monocytes % 6.0 Eosinophils % 2.9 Basophils % 0.4 Nucleated Red Blood Cells % 0.0 Immature Granulocytes # 0.090 H Neutrophils # 6.4 Lymphocytes # 0.9 Monocytes # 0.5 Eosinophils # 0.2 Basophils # 0.0 Nucleated Red Blood Cells # 0.0 Sodium Level 145 H Potassium Level 4.6 Chloride Level 99 Carbon Dioxide Level 39 H Anion Gap 7 Blood Urea Nitrogen 19 Creatinine 0.52 L Est Glomerular Filtrat Rate mL/min Glucose Level 97 Calcium Level 9.3 Imaging Imaging ECG with sinus rhythm at 90 bpm, right bundle branch block, QRS 138 ms, nonspecific ST abnormalities Medications Medications Current Medications IV Flush (NS 3 ml) 3 ml PER PROTOCOL IV ; Start 07/17/18 at 18:00 Enoxaparin Sodium (Lovenox) 40 mg DAILY SC Last administered on 07/24/18at 08:48; Admin Dose 40 MG; Start 07/18/18 at 09:00 Piperacillin Sod/ Tazobactam Sod 100 ml @ 200 mls/hr Q8 IVPB Last administered on 07/24/18at 05:37; Admin Dose 200 MLS/HR; Start 07/17/18 at 22:00 Entacapone (Comtan) 200 mg QID GTB Last administered on 07/24/18 08:42; Admin Dose 200 MG; Start 07/17/18 at 21:00 Glycopyrrolate (Robinul) 1 mg BID GTB Last administered on 07/24/18 08:42; Admin Dose 1 MG; Start 07/17/18 at 21:00 Polyethylene Glycol (Miralax) 8.5 gm DAILY PRN GTB NEEDED; Start 07/17/18 at 18:30 Non-Formulary Medication 1 ea DAILY TRANSDERM Last administered on 07/24/18 09:00; Admin Dose 1 EA; Start 07/18/18 at 09:00 Carbidopa/Levodopa (Sinemet (25/ 100)) 2.5 tab BID@1000,1800 GTB Last administered on 07/24/18 09:54; Admin Dose 2.5 TAB; Start 07/18/18 at 10:00 Carbidopa/Levodopa (Sinemet (25/ 100)) 2 tab BID@1400,2200 GTB Last administered on 07/23/18 21:26; Admin Dose 2 TAB; Start 07/17/18 at 22:00 Miscellaneous Information (Pending [facility] Order For Wound Care) This patient florence ... PRN PRN XX WOUND CARE; Start 07/18/18 at 08:00 Acetaminophen (Tylenol Tab) 650 mg Q4H PRN PO MILD PAIN(1-3)OR ELEVATED TEMP Last administered on 07/24/18at 10:23; Admin Dose 650 MG; Start 07/21/18 at 10:00 Baclofen (Lioresal) 5 mg BID@0900,1800 GTB Last administered on 07/23/18 09:36; Admin Dose 5 MG; Start 07/21/18 at 18:00; Status Hold Tramadol HCl (Ultram) 50 mg HS PRN GTB MODERATE PAIN LEVEL 4-6; Start 07/22/18 at 23:18 Multivitamins Therapeutic (Theragran) 1 tab DAILY PO Last administered on 07/24/18 08:42; Admin Dose 1 TAB; Start 07/23/18 at 11:30 Albuterol (Proventil 0.083% (Neb)) 2.5 mg Q3H RESP THERAPY PRN NEB WHEEZING AND SOB; Start 07/23/18 at 18:30 Sukumar Moore DO Jul 24, 2018 12:45
[2018-07-24] MEDS ORDERED: hydrALAzine 20 MG INJ IV PRN (13:00)
--- NOTE | 2018-07-24 17:00 | PN ---
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 who presents with respiratory distress and hypoxia Acute on chronic hypercapenic/hypoxic respiratory failure - CT suggests possible bacterial pneumonia will continue zosyn x 7 days - I suspect this is from aspiration, needs frequent suctioning and chest PT - conintue HFNC 02 for chronic hyperpneic and hypoxic respiratory failure - Pulmonary consulted - Tube feeds - Chest percussion Multisystems atrophy vs Parkinsons (unclear diagnosis) - continue home meds with entacapone, sinemet DNR/DNI Result Diagram: 07/24/18 0734 07/24/18 0734 Results 24hrs Laboratory Tests Test 07/24/18 07:34 White Blood Count 8.1 Red Blood Count 4.35 #L Hemoglobin 13.4 #L Hematocrit 42.6 # Mean Corpuscular Volume 97.9 Mean Corpuscular Hemoglobin 30.8 Mean Corpuscular Hemoglobin Concent 31.5 L Red Cell Distribution Width 12.6 Platelet Count 174 Mean Platelet Volume 10.0 Immature Granulocytes % 1.100 H Neutrophils % 79.1 H Lymphocytes % 10.5 L Monocytes % 6.0 Eosinophils % 2.9 Basophils % 0.4 Nucleated Red Blood Cells % 0.0 Immature Granulocytes # 0.090 H Neutrophils # 6.4 Lymphocytes # 0.9 Monocytes # 0.5 Eosinophils # 0.2 Basophils # 0.0 Nucleated Red Blood Cells # 0.0 Sodium Level 145 H Potassium Level 4.6 Chloride Level 99 Carbon Dioxide Level 39 H Anion Gap 7 Blood Urea Nitrogen 19 Creatinine 0.52 L Est Glomerular Filtrat Rate mL/min Glucose Level 97 Calcium Level 9.3 Subjective 24 Hr Interval Summary Free Text/Dictation R lung is re-expanded on CXR Seems to be doing better with percussion Exam/Review of Systems Exam Vitals Vital Signs Date Temp Pulse Resp B/P (MAP) Pulse Ox O2 O2 Flow FiO2 Time Delivery Rate 07/24/18 97.3 62 21 125/75 99 High Flow 16:19 (92) 07/24/18 40 15:15 07/23/18 25.0 21:00 Intake and Output 07/23/18 07/23/18 07/24/18 1515:00 23:00 07:00 IntakeIntake Total 1900 ml 275 ml 350 ml OutputOutput Total 1500 ml 1400 ml 1650 ml BalanceBalance 400 ml -1125 ml -1300 ml Exam Nonverbal Appears comfortable Rhonchi bilaterally Results Results 24hrs Laboratory Tests Test 07/24/18 07:34 White Blood Count 8.1 Red Blood Count 4.35 #L Hemoglobin 13.4 #L Hematocrit 42.6 # Mean Corpuscular Volume 97.9 Mean Corpuscular Hemoglobin 30.8 Mean Corpuscular Hemoglobin Concent 31.5 L Red Cell Distribution Width 12.6 Platelet Count 174 Mean Platelet Volume 10.0 Immature Granulocytes % 1.100 H Neutrophils % 79.1 H Lymphocytes % 10.5 L Monocytes % 6.0 Eosinophils % 2.9 Basophils % 0.4 Nucleated Red Blood Cells % 0.0 Immature Granulocytes # 0.090 H Neutrophils # 6.4 Lymphocytes # 0.9 Monocytes # 0.5 Eosinophils # 0.2 Basophils # 0.0 Nucleated Red Blood Cells # 0.0 Sodium Level 145 H Potassium Level 4.6 Chloride Level 99 Carbon Dioxide Level 39 H Anion Gap 7 Blood Urea Nitrogen 19 Creatinine 0.52 L Est Glomerular Filtrat Rate mL/min Glucose Level 97 Calcium Level 9.3 Medications Medication Current Medications IV Flush (NS 3 ml) 3 ml PER PROTOCOL IV ; Start 07/17/18 at 18:00 Enoxaparin Sodium (Lovenox) 40 mg DAILY SC Last administered on 07/24/18at 08:48; Admin Dose 40 MG; Start 07/18/18 at 09:00 Piperacillin Sod/ Tazobactam Sod 100 ml @ 200 mls/hr Q8 IVPB Last administered on 07/24/18at 14:13; Admin Dose 200 MLS/HR; Start 07/17/18 at 22:00 Entacapone (Comtan) 200 mg QID GTB Last administered on 07/24/18at 14:19; Admin Dose 200 MG; Start 07/17/18 at 21:00 Glycopyrrolate (Robinul) 1 mg BID GTB Last administered on 07/24/18at 08:42; Admin Dose 1 MG; Start 07/17/18 at 21:00 Polyethylene Glycol (Miralax) 8.5 gm DAILY PRN GTB NEEDED; Start 07/17/18 at 18:30 Non-Formulary Medication 1 ea DAILY TRANSDERM Last administered on 07/24/18 09:00; Admin Dose 1 EA; Start 07/18/18 at 09:00 Carbidopa/Levodopa (Sinemet (25/ 100)) 2.5 tab BID@1000,1800 GTB Last administered on 07/24/18 09:54; Admin Dose 2.5 TAB; Start 07/18/18 at 10:00 Carbidopa/Levodopa (Sinemet (25/ 100)) 2 tab BID@1400,2200 GTB Last administered on 07/24/18 14:19; Admin Dose 2 TAB; Start 07/17/18 at 22:00 Miscellaneous Information (Pending [facility] Order For Wound Care) This patient florence... PRN PRN XX WOUND CARE; Start 07/18/18 at 08:00 Acetaminophen (Tylenol Tab) 650 mg Q4H PRN PO MILD PAIN(1-3)OR ELEVATED TEMP Last administered on 07/24/18 14:14; Admin Dose 650 MG; Start 07/21/18 at 10:00 Baclofen (Lioresal) 5 mg BID@0900,1800 GTB Last administered on 07/23/18 09:36; Admin Dose 5 MG; Start 07/21/18 at 18:00; Status Hold Tramadol HCl (Ultram) 50 mg HS PRN GTB MODERATE PAIN LEVEL 4-6; Start 07/22/18 at 23:18 Multivitamins Therapeutic (Theragran) 1 tab DAILY PO Last administered on 07/24/18 08:42; Admin Dose 1 TAB; Start 07/23/18 at 11:30 Albuterol (Proventil 0.083% (Neb)) 2.5 mg Q3H RESP THERAPY PRN NEB WHEEZING AND SOB; Start 07/23/18 at 18:30 Hydralazine HCl (Apresoline) 10 mg Q4H PRN IV sbp>165; Start 07/24/18 at 13:00 DEVORA HOSKINS MD Jul 24, 2018 17:00
[2018-07-24] MEDS: ALBUTEROL 0.083% (NEB) 2.5 MG/3 ML AMP NEB PRN (20:06)
[2018-07-25] VITALS (24 sets, daily range): BP systolic 100–153; BP diastolic 68–91; PULSE 58–73; RESP 25–64
[2018-07-25] MEDS: ALBUTEROL 0.083% (NEB) 2.5 MG/3 ML AMP NEB PRN ×2 (01:42→20:06)
[2018-07-25] MEDS: PIPER-TAZO 3.375 GM IV (PMX) 100 ML IVPB SCH (05:16)
--- NOTE | 2018-07-25 07:56 | CONS ---
Assessment/Plan Assessment/Plan Assessment/Plan (Daily) Assessment SIRS/Sepsis Mucous plugging/aspiration pneumonitis History of preserved left ventricular ejection fraction Severe Parkinson's Hypertension Plan: BP improved continue current meds Consultation Date/Type/Reason Admit Date/Time Jul 17, 2018 at 17:22 Initial Consult Date Type of Consult Cardiology Date/Time of Note DATE: 07/25/18 TIME: 07:55 Detailed Summary Respiratory: no complaints Cardiovascular: no complaints Gastrointestinal: no complaints Musculoskeletal: no complaints Skin: no complaints Neurologic: no complaints Exam/Review of Systems Vital Signs Vitals Vital Signs Date Temp Pulse Resp B/P (MAP) Pulse Ox O2 O2 Flow FiO2 Time Delivery Rate 07/25/18 65 25 141/78 97 High Flow 06:00 (99) 07/25/18 30 05:44 07/25/18 98.2 04:00 07/25/18 25.0 02:16 Intake and Output 07/24/18 07/24/18 07/25/18 1515:00 23:00 07:00 IntakeIntake Total 400 ml 500 ml 650 ml OutputOutput Total 750 ml 850 ml 295 ml BalanceBalance -350 ml -350 ml 355 ml Exam Head: normocephalic, atraumatic Neck: supple Respiratory: clear to auscultation Cardiovascular: regular rate and rhythm Gastrointestinal: soft Musculoskeletal: nl extremities to inspection Extremities: normal pulses Labs Result Diagram: 07/25/187 07/25/18 0437 Results 24hrs Laboratory Tests Test 07/25/18 04:37 07/25/18 07:00 White Blood Count 5.8 # Red Blood Count 3.66 L Hemoglobin 11.5 L Hematocrit 35.8 L Mean Corpuscular Volume 97.8 Mean Corpuscular Hemoglobin 31.4 Mean Corpuscular Hemoglobin Concent 32.1 Red Cell Distribution Width 12.4 Platelet Count 189 Mean Platelet Volume 10.1 Immature Granulocytes % 1.000 H Neutrophils % 77.0 Lymphocytes % 11.9 L Monocytes % 6.4 Eosinophils % 3.4 Basophils % 0.3 Nucleated Red Blood Cells % 0.0 Immature Granulocytes # 0.060 H Neutrophils # 4.5 Lymphocytes # 0.7 L Monocytes # 0.4 Eosinophils # 0.2 Basophils # 0.0 Nucleated Red Blood Cells # 0.0 Sodium Level 144 Potassium Level 4.1 Chloride Level 97 Carbon Dioxide Level 42 *H Anion Gap 5 Blood Urea Nitrogen 19 Creatinine 0.60 L Est Glomerular Filtrat Rate mL/min Glucose Level 101 Calcium Level 9.0 Phosphorus Level 3.4 Magnesium Level 2.4 Blood Gas Specimen Source Blood arterial Arterial Blood Date Drawn 07/25/2018 7:16:16 AM Arterial Blood pH (Temp corrected) 7.377 Arterial Blood pCO2 (Temp correct) 76.2 H Arterial Blood pO2 (Temp corrected) 85.2 Arterial Blood HCO3 43.8 *H Arterial Blood Base Excess 15.2 H Arterial Blood Oxygen Saturation 96.5 Leroy Test ACCEPTAB Arterial Blood Gas Puncture Site Right Radial Arterial Blood Carboxyhemoglobin 0.6 Arterial Blood Methemoglobin 0.3 Blood Gas A-a O2 Differential 39.2 H Oxyhemoglobin Percent 95.6 Blood Gas Temperature 37.0 Blood Gas Modality HFNC FiO2 30.0 Blood Gas Critical Value Read Back LENCHO RN Blood Gas Notified Whom TM Blood Gas Notified Time 07/25/2018 7:44:45 AM Medications Medications Current Medications IV Flush (NS 3 ml) 3 ml PER PROTOCOL IV ; Start 07/17/18 at 18:00 Enoxaparin Sodium (Lovenox) 40 mg DAILY SC Last administered on 07/24/18at 08:48; Admin Dose 40 MG; Start 07/18/18 at 09:00 Piperacillin Sod/ Tazobactam Sod 100 ml @ 200 mls/hr Q8 IVPB Last administered on 07/25/18at 05:16; Admin Dose 200 MLS/HR; Start 07/17/18 at 22:00 Entacapone (Comtan) 200 mg QID GTB Last administered on 07/24/18at 21:09; Admin Dose 200 MG; Start 07/17/18 at 21:00 Glycopyrrolate (Robinul) 1 mg BID GTB Last administered on 07/24/18at 21:09; Admin Dose 1 MG; Start 07/17/18 at 21:00 Polyethylene Glycol (Miralax) 8.5 gm DAILY PRN GTB NEEDED; Start 07/17/18 at 18:30 Non-Formulary Medication 1 ea DAILY TRANSDERM Last administered on 07/24/18at 09:00; Admin Dose 1 EA; Start 07/18/18 at 09:00 Carbidopa/Levodopa (Sinemet (25/ 100)) 2.5 tab BID@1000,1800 GTB Last administered on 07/24/18at 17:58; Admin Dose 2.5 TAB; Start 07/18/18 at 10:00 Carbidopa/Levodopa (Sinemet (25/ 100)) 2 tab BID@1400,2200 GTB Last administered on 07/24/18at 21:22; Admin Dose 2 TAB; Start 07/17/18 at 22:00 Miscellaneous Information (Pending [facility]yl Order For Wound Care) This patient florence... PRN PRN XX WOUND CARE; Start 07/18/18 at 08:00 Acetaminophen (Tylenol Tab) 650 mg Q4H PRN PO MILD PAIN(1-3)OR ELEVATED TEMP Last administered on 07/24/18at 18:38; Admin Dose 650 MG; Start 07/21/18 at 10:00 Baclofen (Lioresal) 5 mg BID@0900,1800 GTB Last administered on 07/23/18at 09:36; Admin Dose 5 MG; Start 07/21/18 at 18:00; Status Hold Tramadol HCl (Ultram) 50 mg HS PRN GTB MODERATE PAIN LEVEL 4-6; Start 07/22/18 at 23:18 Multivitamins Therapeutic (Theragran) 1 tab DAILY PO Last administered on 07/24/18at 08:42; Admin Dose 1 TAB; Start 07/23/18 at 11:30 Albuterol (Proventil 0.083% (Neb)) 2.5 mg Q3H RESP THERAPY PRN NEB WHEEZING AND SOB Last administered on 07/25/18at 01:42; Admin Dose 2.5 MG; Start 07/23/18 at 18:30 Hydralazine HCl (Apresoline) 10 mg Q4H PRN IV sbp>165; Start 07/24/18 at 13:00 MARY CHINCHILLA MD Jul 25, 2018 07:56
[2018-07-25] MEDS: ROTIGOTINE TRANSDERM SCH (08:28)
[2018-07-25] MEDS: BALSAM PERU/CASTOR OIL 60 GM TUBE TOP SCH ×2 (08:28→21:00)
[2018-07-25] MEDS: MULTIVITAMINS THERAPEUTIC TAB PO SCH (08:28)
[2018-07-25] MEDS: GLYCOPYRROLATE 1 MG TAB GTB SCH ×2 (08:28→21:00)
[2018-07-25] MEDS: ENTACAPONE 200 MG TAB GTB SCH ×4 (08:28→21:00)
[2018-07-25] MEDS: ENOXAPARIN 40 MG/0.4 ML SYG SC SCH (08:32)
[2018-07-25] MEDS: CARBIDOPA/LEVODOPA (25/100) TAB GTB SCH ×4 (09:54→21:00)
--- NOTE | 2018-07-25 11:01 | CONS ---
Consult Date/Type/Reason Admit Date/Time Jul 17, 2018 at 17:22 Initial Consult Date Type of Consult Pulmonary Date/Time of Note DATE: 07/25/18 TIME: 11:00 Subjective Better today. Continues high flow O2 with decrease O2 requirements. Chest x- ray shows improved aeration but still has atelectasis right lower lobe. Objective Vital Signs Date Temp Pulse Resp B/P (MAP) Pulse Ox O2 O2 Flow FiO2 Time Delivery Rate 07/25/18 71 33 151/91 96 High Flow 10:00 (111) 07/25/18 98.2 09:00 07/25/18 30 05:44 07/25/18 25.0 02:16 Intake and Output 07/24/18 07/24/18 07/25/18 1414:59 22:59 06:59 IntakeIntake Total 350 ml 500 ml 700 ml OutputOutput Total 750 ml 810 ml 335 ml BalanceBalance -400 ml -310 ml 365 ml Exam GENERAL: Frail elderly gentleman on high flow O2 VITAL SIGNS: per chart NECK: Supple. No JVD or lymphadenopathy. CARDIAC EXAM: S1, S2. No added sounds or murmurs. CHEST: Diminished air entry bilaterally poor inspiratory effort ABDOMEN: Soft, nontender. No guarding or rebound. EXTREMITIES: No cyanosis, clubbing or edema. NEUROLOGIC: Generalized weakness. No focal deficits. Vent Setting Fraction of Inspired Oxygen pe: 30 Results/Medications Result Diagram: 07/25/18 0437 07/25/18 0437 Results 24 hrs Laboratory Tests Test 07/25/18 04:37 07/25/18 07:00 White Blood Count 5.8 # Red Blood Count 3.66 L Hemoglobin 11.5 L Hematocrit 35.8 L Mean Corpuscular Volume 97.8 Mean Corpuscular Hemoglobin 31.4 Mean Corpuscular Hemoglobin Concent 32.1 Red Cell Distribution Width 12.4 Platelet Count 189 Mean Platelet Volume 10.1 Immature Granulocytes % 1.000 H Neutrophils % 77.0 Lymphocytes % 11.9 L Monocytes % 6.4 Eosinophils % 3.4 Basophils % 0.3 Nucleated Red Blood Cells % 0.0 Immature Granulocytes # 0.060 H Neutrophils # 4.5 Lymphocytes # 0.7 L Monocytes # 0.4 Eosinophils # 0.2 Basophils # 0.0 Nucleated Red Blood Cells # 0.0 Sodium Level 144 Potassium Level 4.1 Chloride Level 97 Carbon Dioxide Level 42 *H Anion Gap 5 Blood Urea Nitrogen 19 Creatinine 0.60 L Est Glomerular Filtrat Rate mL/min Glucose Level 101 Calcium Level 9.0 Phosphorus Level 3.4 Magnesium Level 2.4 Blood Gas Specimen Source Blood arterial Arterial Blood Date Drawn 07/25/2018 7:16:16 AM Arterial Blood pH (Temp corrected) 7.377 Arterial Blood pCO2 (Temp correct) 76.2 H Arterial Blood pO2 (Temp corrected) 85.2 Arterial Blood HCO3 43.8 *H Arterial Blood Base Excess 15.2 H Arterial Blood Oxygen Saturation 96.5 Leroy Test ACCEPTAB Arterial Blood Gas Puncture Site Right Radial Arterial Blood Carboxyhemoglobin 0.6 Arterial Blood Methemoglobin 0.3 Blood Gas A-a O2 Differential 39.2 H Oxyhemoglobin Percent 95.6 Blood Gas Temperature 37.0 Blood Gas Modality HFNC FiO2 30.0 Blood Gas Critical Value Read Back LENCHO RN Blood Gas Notified Whom TM Blood Gas Notified Time 07/25/2018 7:44:45 AM Medications Current Medications IV Flush (NS 3 ml) 3 ml PER PROTOCOL IV ; Start 07/17/18 at 18:00 Enoxaparin Sodium (Lovenox) 40 mg DAILY SC Last administered on 07/25/18at 08:32; Admin Dose 40 MG; Start 07/18/18 at 09:00 Piperacillin Sod/ Tazobactam Sod 100 ml @ 200 mls/hr Q8 IVPB Last administered on 07/25/18 05:16; Admin Dose 200 MLS/HR; Start 07/17/18 at 22:00 Entacapone (Comtan) 200 mg QID GTB Last administered on 07/25/18at 08:28; Admin Dose 200 MG; Start 07/17/18 at 21:00 Glycopyrrolate (Robinul) 1 mg BID GTB Last administered on 07/25/18 08:28; Admin Dose 1 MG; Start 07/17/18 at 21:00 Polyethylene Glycol (Miralax) 8.5 gm DAILY PRN GTB NEEDED; Start 07/17/18 at 18:30 Non-Formulary Medication 1 ea DAILY TRANSDERM Last administered on 07/25/18 08:28; Admin Dose 1 EA; Start 07/18/18 at 09:00 Carbidopa/Levodopa (Sinemet (25/ 100)) 2.5 tab BID@1000,1800 GTB Last administered on 07/25/18 09:54; Admin Dose 2.5 TAB; Start 07/18/18 at 10:00 Carbidopa/Levodopa (Sinemet ()) 2 tab BID@1400,2200 GTB Last administered on 07/24/18 21:22; Admin Dose 2 TAB; Start 07/17/18 at 22:00 Miscellaneous Information (Pending Santyl Order For Wound Care) This patient florence... PRN PRN XX WOUND CARE; Start 07/18/18 at 08:00 Acetaminophen (Tylenol Tab) 650 mg Q4H PRN PO MILD PAIN(1-3)OR ELEVATED TEMP Last administered on 07/24/18at 18:38; Admin Dose 650 MG; Start 07/21/18 at 10:00 Baclofen (Lioresal) 5 mg BID@0900,1800 GTB Last administered on 07/23/18 09:36; Admin Dose 5 MG; Start 07/21/18 at 18:00; Status Hold Tramadol HCl (Ultram) 50 mg HS PRN GTB MODERATE PAIN LEVEL 4-6; Start 07/22/18 at 23:18 Multivitamins Therapeutic (Theragran) 1 tab DAILY PO Last administered on 07/25/18at 08:28; Admin Dose 1 TAB; Start 07/23/18 at 11:30 Albuterol (Proventil 0.083% (Neb)) 2.5 mg Q3H RESP THERAPY PRN NEB WHEEZING AND SOB Last administered on 07/25/18at 01:42; Admin Dose 2.5 MG; Start 07/23/18 at 18:30 Hydralazine HCl (Apresoline) 10 mg Q4H PRN IV sbp>165; Start 07/24/18 at 13:00 Assessment/Plan Hospital Course (Demo Recall) IMP: 1. Acute on chronic hypoxemic and hypercapnic resp insufficiency, mucous plugging likely secondary to right mainstem bronchus improved with chest PT and Mucomyst 2. Aspiration pneumonitis 3. Advanced Parkinson's disease RECS: 1. Continue ICU monitoring with chest percussion 2. Continue Mucomyst and bronchodilators 3. Continue aspiration precautions 4. Steroid taper 5. Continue tube feeding Critical care time 40 minutes. Long discussion with family at bedside. Anticipate transfer to telemetry this weekend We will need percussion vest on discharge I will arrange this early next week SANDHYA RODRIGUEZ MD, [facility] Jul 25, 2018 11:01
[2018-07-25] MEDS: ACETAMINOPHEN 325 MG TAB PO PRN (11:17)
--- NOTE | 2018-07-25 20:05 | PN ---
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 who presents with respiratory distress and hypoxia Acute on chronic hypercapenic/hypoxic respiratory failure - CT suggests possible bacterial pneumonia will continue zosyn x 7 days - I suspect this is from aspiration, needs frequent suctioning and chest PT - conintue HFNC 02 for chronic hyperpneic and hypoxic respiratory failure - Pulmonary consulted - Tube feeds - Chest percussion Multisystems atrophy vs Parkinsons (unclear diagnosis) - continue home meds with entacapone, sinemet DNR/DNI Result Diagram: 07/25/187 07/25/18 0437 Results 24hrs Laboratory Tests Test 07/25/18 04:37 07/25/18 07:00 White Blood Count 5.8 # Red Blood Count 3.66 L Hemoglobin 11.5 L Hematocrit 35.8 L Mean Corpuscular Volume 97.8 Mean Corpuscular Hemoglobin 31.4 Mean Corpuscular Hemoglobin Concent 32.1 Red Cell Distribution Width 12.4 Platelet Count 189 Mean Platelet Volume 10.1 Immature Granulocytes % 1.000 H Neutrophils % 77.0 Lymphocytes % 11.9 L Monocytes % 6.4 Eosinophils % 3.4 Basophils % 0.3 Nucleated Red Blood Cells % 0.0 Immature Granulocytes # 0.060 H Neutrophils # 4.5 Lymphocytes # 0.7 L Monocytes # 0.4 Eosinophils # 0.2 Basophils # 0.0 Nucleated Red Blood Cells # 0.0 Sodium Level 144 Potassium Level 4.1 Chloride Level 97 Carbon Dioxide Level 42 *H Anion Gap 5 Blood Urea Nitrogen 19 Creatinine 0.60 L Est Glomerular Filtrat Rate mL/min Glucose Level 101 Calcium Level 9.0 Phosphorus Level 3.4 Magnesium Level 2.4 Blood Gas Specimen Source Blood arterial Arterial Blood Date Drawn 07/25/2018 7:16:16 AM Arterial Blood pH (Temp corrected) 7.377 Arterial Blood pCO2 (Temp correct) 76.2 H Arterial Blood pO2 (Temp corrected) 85.2 Arterial Blood HCO3 43.8 *H Arterial Blood Base Excess 15.2 H Arterial Blood Oxygen Saturation 96.5 Leroy Test ACCEPTAB Arterial Blood Gas Puncture Site Right Radial Arterial Blood Carboxyhemoglobin 0.6 Arterial Blood Methemoglobin 0.3 Blood Gas A-a O2 Differential 39.2 H Oxyhemoglobin Percent 95.6 Blood Gas Temperature 37.0 Blood Gas Modality HFNC FiO2 30.0 Blood Gas Critical Value Read Back LENCHO PRIETO Blood Gas Notified Whom TM Blood Gas Notified Time 07/25/2018 7:44:45 AM Exam/Review of Systems Exam Vitals Vital Signs Date Temp Pulse Resp B/P (MAP) Pulse Ox O2 O2 Flow FiO2 Time Delivery Rate 07/25/18 70 40 135/75 96 High Flow 18:00 (95) 07/25/18 30 17:10 07/25/18 98.2 16:00 07/25/18 25.0 02:16 Intake and Output 07/24/18 07/24/18 07/25/18 1414:59 22:59 06:59 IntakeIntake Total 350 ml 500 ml 700 ml OutputOutput Total 750 ml 810 ml 335 ml BalanceBalance -400 ml -310 ml 365 ml Results Results 24hrs Laboratory Tests Test 07/25/18 04:37 07/25/18 07:00 White Blood Count 5.8 # Red Blood Count 3.66 L Hemoglobin 11.5 L Hematocrit 35.8 L Mean Corpuscular Volume 97.8 Mean Corpuscular Hemoglobin 31.4 Mean Corpuscular Hemoglobin Concent 32.1 Red Cell Distribution Width 12.4 Platelet Count 189 Mean Platelet Volume 10.1 Immature Granulocytes % 1.000 H Neutrophils % 77.0 Lymphocytes % 11.9 L Monocytes % 6.4 Eosinophils % 3.4 Basophils % 0.3 Nucleated Red Blood Cells % 0.0 Immature Granulocytes # 0.060 H Neutrophils # 4.5 Lymphocytes # 0.7 L Monocytes # 0.4 Eosinophils # 0.2 Basophils # 0.0 Nucleated Red Blood Cells # 0.0 Sodium Level 144 Potassium Level 4.1 Chloride Level 97 Carbon Dioxide Level 42 *H Anion Gap 5 Blood Urea Nitrogen 19 Creatinine 0.60 L Est Glomerular Filtrat Rate mL/min Glucose Level 101 Calcium Level 9.0 Phosphorus Level 3.4 Magnesium Level 2.4 Blood Gas Specimen Source Blood arterial Arterial Blood Date Drawn 07/25/2018 7:16:16 AM Arterial Blood pH (Temp corrected) 7.377 Arterial Blood pCO2 (Temp correct) 76.2 H Arterial Blood pO2 (Temp corrected) 85.2 Arterial Blood HCO3 43.8 *H Arterial Blood Base Excess 15.2 H Arterial Blood Oxygen Saturation 96.5 Leroy Test ACCEPTAB Arterial Blood Gas Puncture Site Right Radial Arterial Blood Carboxyhemoglobin 0.6 Arterial Blood Methemoglobin 0.3 Blood Gas A-a O2 Differential 39.2 H Oxyhemoglobin Percent 95.6 Blood Gas Temperature 37.0 Blood Gas Modality HFNC FiO2 30.0 Blood Gas Critical Value Read Back LENCHO PRIETO Blood Gas Notified Whom TM Blood Gas Notified Time 07/25/2018 7:44:45 AM Medications Medication Current Medications IV Flush (NS 3 ml) 3 ml PER PROTOCOL IV ; Start 07/17/18 at 18:00 Enoxaparin Sodium (Lovenox) 40 mg DAILY SC Last administered on 07/25/18 08:32; Admin Dose 40 MG; Start 07/18/18 at 09:00 Entacapone (Comtan) 200 mg QID GTB Last administered on 07/25/18 17:39; Admin Dose 200 MG; Start 07/17/18 at 21:00 Glycopyrrolate (Robinul) 1 mg BID GTB Last administered on 07/25/18 08:28; Admin Dose 1 MG; Start 07/17/18 at 21:00 Polyethylene Glycol (Miralax) 8.5 gm DAILY PRN GTB NEEDED; Start 07/17/18 at 18:30 Non-Formulary Medication 1 ea DAILY TRANSDERM Last administered on 07/25/18 08:28; Admin Dose 1 EA; Start 07/18/18 at 09:00 Carbidopa/Levodopa (Sinemet (25/ 100)) 2.5 tab BID@1000,1800 GTB Last ad ministered on 07/25/18 17:39; Admin Dose 2.5 TAB; Start 07/18/18 at 10:00 Carbidopa/Levodopa (Sinemet (25/ 100)) 2 tab BID@1400,2200 GTB Last administered on 07/25/18 13:54; Admin Dose 2 TAB; Start 07/17/18 at 22:00 [facility] This patient florence... PRN PRN XX WOUND CARE; Start 07/18/18 at 08:00 Acetaminophen (Tylenol Tab) 650 mg Q4H PRN PO MILD PAIN(1-3)OR ELEVATED TEMP Last administered on 07/25/18at 11:17; Admin Dose 650 MG; Start 07/21/18 at 10:00 Baclofen (Lioresal) 5 mg BID@0900,1800 GTB Last administered on 07/23/18at 09:36; Admin Dose 5 MG; Start 07/21/18 at 18:00; Status Hold Tramadol HCl (Ultram) 50 mg HS PRN GTB MODERATE PAIN LEVEL 4-6; Start 07/22/18 at 23:18 Multivitamins Therapeutic (Theragran) 1 tab DAILY PO Last administered on 07/25/18at 08:28; Admin Dose 1 TAB; Start 07/23/18 at 11:30 Albuterol (Proventil 0.083% (Neb)) 2.5 mg Q3H RESP THERAPY PRN NEB WHEEZING AND SOB Last administered on 07/25/18at 01:42; Admin Dose 2.5 MG; Start 07/23/18 at 18:30 Hydralazine HCl (Apresoline) 10 mg Q4H PRN IV sbp>165; Start 07/24/18 at 13:00 DEVORA HOSKINS MD Jul 25, 2018 20:05
[2018-07-26] VITALS (28 sets, daily range): BP systolic 99–137; BP diastolic 61–84; PULSE 64–81; RESP 29–70
[2018-07-26] MEDS: ALBUTEROL 0.083% (NEB) 2.5 MG/3 ML AMP NEB PRN (02:13)
[2018-07-26] MEDS: ROTIGOTINE TRANSDERM SCH (09:03)
[2018-07-26] MEDS: BALSAM PERU/CASTOR OIL 60 GM TUBE TOP SCH ×2 (09:03→20:52)
[2018-07-26] MEDS: MULTIVITAMINS THERAPEUTIC TAB PO SCH (09:03)
[2018-07-26] MEDS: GLYCOPYRROLATE 1 MG TAB GTB SCH ×2 (09:03→20:53)
[2018-07-26] MEDS: CARBIDOPA/LEVODOPA (25/100) TAB GTB SCH ×4 (09:03→21:00)
[2018-07-26] MEDS: ENTACAPONE 200 MG TAB GTB SCH ×4 (09:03→20:53)
[2018-07-26] MEDS: ENOXAPARIN 40 MG/0.4 ML SYG SC SCH (09:10)
[2018-07-26] MEDS: ACETAMINOPHEN 325 MG TAB PO PRN (11:09)
--- NOTE | 2018-07-26 12:56 | CONS ---
Consult Date/Type/Reason Admit Date/Time Jul 17, 2018 at 17:22 Initial Consult Date Type of Consultation: Pulm/CCM Date/Time of Note DATE: 07/26/18 TIME: 12:54 Subjective More somnolent today. Remains on high-flow oxygen. Objective Vitals Vital Signs Date Temp Pulse Resp B/P (MAP) Pulse Ox O2 O2 Flow FiO2 Time Delivery Rate 07/26/18 76 12:27 07/26/18 98.7 64 122/72 99 High Flow 20.0 12:00 (89) 07/26/18 45 06:11 Intake and Output 07/25/18 07/25/18 07/26/18 1515:00 23:00 07:00 IntakeIntake Total 550 ml 450 ml 800 ml OutputOutput Total 270 ml 510 ml 812 ml BalanceBalance 280 ml -60 ml -12 ml Exam HEENT: Neck supple; no JVD; no LAD CVS: RRR, S1 and S2 CHEST: rapid shallow breathing. Absent right-sided breath sounds. ABD: Soft, NT, + BS EXT: No c/c/e Results/Medications Result Diagram: 07/26/18 0800 07/26/18 0800 Results 24 hrs Laboratory Tests Test 07/26/18 08:00 White Blood Count 5.7 Red Blood Count 3.75 L Hemoglobin 11.7 L Hematocrit 37.0 L Mean Corpuscular Volume 98.7 Mean Corpuscular Hemoglobin 31.2 Mean Corpuscular Hemoglobin Concent 31.6 L Red Cell Distribution Width 12.6 Platelet Count 217 Mean Platelet Volume 9.9 Immature Granulocytes % 1.100 H Neutrophils % 73.9 Lymphocytes % 14.2 L Monocytes % 7.6 Eosinophils % 3.0 Basophils % 0.2 Nucleated Red Blood Cells % 0.0 Immature Granulocytes # 0.060 H Neutrophils # 4.2 Lymphocytes # 0.8 Monocytes # 0.4 Eosinophils # 0.2 Basophils # 0.0 Nucleated Red Blood Cells # 0.0 Sodium Level 143 Potassium Level 4.3 Chloride Level 98 Carbon Dioxide Level 41 *H Anion Gap 4 L Blood Urea Nitrogen 18 Creatinine 0.56 L Est Glomerular Filtrat Rate mL/min Glucose Level 103 Calcium Level 9.3 Phosphorus Level 3.0 Magnesium Level 2.5 Home Meds Reported Medications [Vitamin C] No Conflict Check, 1000 MG GTB DAILY 07/17/18 Ibuprofen* (Ibuprofen*) 200 Mg Capsule, 800 MG GTB QHS PRN for PAIN, CAP 07/17/18 Rotigotine (NEUPRO) 1 Each Patch.td24, 1 EACH TD DAILY 6MG 07/17/18 Polyethylene Glycol* (Miralax*) 17 Gm Powd.pack, 8.5 GM GTB DAILY PRN for NEEDED, #30 PACKET 07/17/18 Baclofen* (Baclofen*) 10 Mg Tablet, 10 MG GTB TID, TAB TAKE 5MG-QAM AND 5MG-QPM, 15MG-QHS 07/17/18 Glycopyrrolate* (Glycopyrrolate*) 1 Mg Tablet, 1 MG GTB BID, TAB 07/17/18 Albuterol Sulfate* (Albuterol Sulfate* Neb) 0.083%-3 Ml Neb, 2.5 MG NEB Q3H PRN for WHEEZING AND SOB, #30 VIAL 07/17/18 Entacapone* (Entacapone*) 200 Mg Tablet, 200 MG GTB QID, TAB 07/17/18 Aspirin* (Aspirin* EC) 81 Mg Tablet.dr, 81 MG GTB DAILY, TAB 07/17/18 Carbidopa/Levodopa (CARBIDOPA-LEVO 25-100 MG ODT) 1 Each Tab.rapdis, 2.5 TAB GTB BID, #90 TAB 10-AM AND 6-PM 07/17/18 Carbidopa/Levodopa (CARBIDOPA-LEVO 25-100 MG ODT) 1 Each Tab.rapdis, 2 TAB GTB BID, #120 TAB 2-PM AND 10-PM 07/17/18 Medications Current Medications IV Flush (NS 3 ml) 3 ml PER PROTOCOL IV ; Start 07/17/18 at 18:00 Enoxaparin Sodium (Lovenox) 40 mg DAILY SC Last administered on 07/26/18at 09: 10; Admin Dose 40 MG; Start 07/18/18 at 09:00 Entacapone (Comtan) 200 mg QID GTB Last administered on 07/26/18at 09:03; Admin Dose 200 MG; Start 07/17/18 at 21:00 Glycopyrrolate (Robinul) 1 mg BID GTB Last administered on 07/26/18at 09:03; Admin Dose 1 MG; Start 07/17/18 at 21:00 Polyethylene Glycol (Miralax) 8.5 gm DAILY PRN GTB NEEDED; Start 07/17/18 at 18:30 Non-Formulary Medication 1 ea DAILY TRANSDERM Last administered on 07/26/18 09:03; Admin Dose 1 EA; Start 07/18/18 at 09:00 Carbidopa/Levodopa (Sinemet (25/ 100)) 2.5 tab BID@1000,1800 GTB Last administered on 07/26/18 09:03; Admin Dose 2.5 TAB; Start 07/18/18 at 10:00 Carbidopa/Levodopa (Sinemet (25/ 100)) 2 tab BID@1400,2200 GTB Last administered on 07/25/18 21:00; Admin Dose 2 TAB; Start 07/17/18 at 22:00 Miscellaneous Information (Pending [facility] Order For Wound Care) This patient florence... PRN PRN XX WOUND CARE; Start 07/18/18 at 08:00 Acetaminophen (Tylenol Tab) 650 mg Q4H PRN PO MILD PAIN(1-3)OR ELEVATED TEMP Last administered on 07/26/18 11:09; Admin Dose 650 MG; Start 07/21/18 at 10:00 Baclofen (Lioresal) 5 mg BID@0900,1800 GTB Last administered on 07/23/18 09:36; Admin Dose 5 MG; Start 07/21/18 at 18:00; Status Hold Tramadol HCl (Ultram) 50 mg HS PRN GTB MODERATE PAIN LEVEL 4-6; Start 07/22/18 at 23:18 Multivitamins Therapeutic (Theragran) 1 tab DAILY PO Last administered on 07/26/18 09:03; Admin Dose 1 TAB; Start 07/23/18 at 11:30 Albuterol (Proventil 0.083% (Neb)) 2.5 mg Q3H RESP THERAPY PRN NEB WHEEZING AND SOB Last administered on 07/26/18 02:13; Admin Dose 2.5 MG; Start 07/23/18 at 18:30 Hydralazine HCl (Apresoline) 10 mg Q4H PRN IV sbp>165; Start 07/24/18 at 13:00 Assessment/Plan Assessment/Plan (Daily) IMP: 1. Acute on chronic hypoxemic and hypercapnic resp insufficiency, mucous plugging likely secondary to right mainstem bronchus improved with chest PT and Mucomyst 2. Aspiration pneumonitis 3. 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 Continue ICU monitoring with chest percussion 2. Continue Mucomyst and bronchodilators 3. Continue aspiration precautions 4. Steroid taper 5. Continue tube feeding 6. Stat VBG and CXR Critical care time 40 minutes. Long discussion with family at bedside. CJ SEALS MD Jul 26, 2018 12:56
--- NOTE | 2018-07-26 17:30 | PN ---
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 who presents with respiratory distress and hypoxia Acute on chronic hypercapenic/hypoxic respiratory failure - s/p zosyn x 7 days - I suspect this is from aspiration, needs frequent suctioning and chest PT - conintue HFNC 02 for chronic hyperpneic and hypoxic respiratory failure - 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 -> BIPAP - Pulmonary consulted - Tube feeds - Chest percussion Multisystems atrophy vs Parkinsons (unclear diagnosis) - continue home meds with entacapone, sinemet DNR/DNI Result Diagram: 07/26/18 0800 07/26/18 0800 Results 24hrs Laboratory Tests Test 07/26/18 08:00 07/26/18 12:52 White Blood Count 5.7 Red Blood Count 3.75 L Hemoglobin 11.7 L Hematocrit 37.0 L Mean Corpuscular Volume 98.7 Mean Corpuscular Hemoglobin 31.2 Mean Corpuscular Hemoglobin Concent 31.6 L Red Cell Distribution Width 12.6 Platelet Count 217 Mean Platelet Volume 9.9 Immature Granulocytes % 1.100 H Neutrophils % 73.9 Lymphocytes % 14.2 L Monocytes % 7.6 Eosinophils % 3.0 Basophils % 0.2 Nucleated Red Blood Cells % 0.0 Immature Granulocytes # 0.060 H Neutrophils # 4.2 Lymphocytes # 0.8 Monocytes # 0.4 Eosinophils # 0.2 Basophils # 0.0 Nucleated Red Blood Cells # 0.0 Sodium Level 143 Potassium Level 4.3 Chloride Level 98 Carbon Dioxide Level 41 *H Anion Gap 4 L Blood Urea Nitrogen 18 Creatinine 0.56 L Est Glomerular Filtrat Rate mL/min Glucose Level 103 Calcium Level 9.3 Phosphorus Level 3.0 Magnesium Level 2.5 Blood Gas Specimen Source Blood venous Arterial Blood Date Drawn 07/26/2018 1:10:25 PM Arterial Blood Gas Puncture Site VENOUS LINE Leroy Test N/A Venous Blood pH 7.326 L Venous Blood pCO2 (Temp Corrected) 84.5 *H Venous Blood pO2 (Temp Corrected) 41.4 H Venous Blood HCO3 43.2 H Venous Blood Oxygen Saturation 75.6 H Venous Blood Base Excess 13.8 H Venous Blood Total Hemoglobin 11.8 Venous Blood Oxyhemoglobin 75.1 Venous Blood Methemoglobin 0.3 Blood Gas A-a O2 Differential 220.0 Carboxyhemoglobin 0.4 Blood Gas Temperature 37.0 Blood Gas Actual Respiration Rate 40 Blood Gas Modality HFNC FiO2 50.0 Blood Gas Critical Value Read Back NICOLÁS PRIETO Blood Gas Notified Whom RDIX Blood Gas Notified Time 07/26/2018 1:35:48 PM Subjective 24 Hr Interval Summary Free Text/Dictation abx course completed remains in respiratory failure on HFNC Exam/Review of Systems Exam Vitals Vital Signs Date Temp Pulse Resp B/P (MAP) Pulse Ox O2 O2 Flow FiO2 Time Delivery Rate 07/26/18 65 16:26 07/26/18 98.4 59 102/63 97 High Flow 20.0 16:00 (76) 07/26/18 50 15:00 Intake and Output 07/25/18 07/25/18 07/26/18 1515:00 23:00 07:00 IntakeIntake Total 550 ml 450 ml 800 ml OutputOutput Total 270 ml 510 ml 812 ml BalanceBalance 280 ml -60 ml -12 ml Exam Appeasr comfortably Very shallow breaths Lungs clear RRR G tube Results Results 24hrs Laboratory Tests Test 07/26/18 08:00 07/26/18 12:52 White Blood Count 5.7 Red Blood Count 3.75 L Hemoglobin 11.7 L Hematocrit 37.0 L Mean Corpuscular Volume 98.7 Mean Corpuscular Hemoglobin 31.2 Mean Corpuscular Hemoglobin Concent 31.6 L Red Cell Distribution Width 12.6 Platelet Count 217 Mean Platelet Volume 9.9 Immature Granulocytes % 1.100 H Neutrophils % 73.9 Lymphocytes % 14.2 L Monocytes % 7.6 Eosinophils % 3.0 Basophils % 0.2 Nucleated Red Blood Cells % 0.0 Immature Granulocytes # 0.060 H Neutrophils # 4.2 Lymphocytes # 0.8 Monocytes # 0.4 Eosinophils # 0.2 Basophils # 0.0 Nucleated Red Blood Cells # 0.0 Sodium Level 143 Potassium Level 4.3 Chloride Level 98 Carbon Dioxide Level 41 *H Anion Gap 4 L Blood Urea Nitrogen 18 Creatinine 0.56 L Est Glomerular Filtrat Rate mL/min Glucose Level 103 Calcium Level 9.3 Phosphorus Level 3.0 Magnesium Level 2.5 Blood Gas Specimen Source Blood venous Arterial Blood Date Drawn 07/26/2018 1:10:25 PM Arterial Blood Gas Puncture Site VENOUS LINE Leroy Test N/A Venous Blood pH 7.326 L Venous Blood pCO2 (Temp Corrected) 84.5 *H Venous Blood pO2 (Temp Corrected) 41.4 H Venous Blood HCO3 43.2 H Venous Blood Oxygen Saturation 75.6 H Venous Blood Base Excess 13.8 H Venous Blood Total Hemoglobin 11.8 Venous Blood Oxyhemoglobin 75.1 Venous Blood Methemoglobin 0.3 Blood Gas A-a O2 Differential 220.0 Carboxyhemoglobin 0.4 Blood Gas Temperature 37.0 Blood Gas Actual Respiration Rate 40 Blood Gas Modality HFNC FiO2 50.0 Blood Gas Critical Value Read Back NICOLÁS PRIETO Blood Gas Notified Whom RDIX Blood Gas Notified Time 07/26/2018 1:35:48 PM Medications Medication Current Medications IV Flush (NS 3 ml) 3 ml PER PROTOCOL IV ; Start 07/17/18 at 18:00 Enoxaparin Sodium (Lovenox) 40 mg DAILY SC Last administered on 07/26/18 09:10; Admin Dose 40 MG; Start 07/18/18 at 09:00 Entacapone (Comtan) 200 mg QID GTB Last administered on 07/26/18 15:34; Admin Dose 200 MG; Start 07/17/18 at 21:00 Glycopyrrolate (Robinul) 1 mg BID GTB Last administered on 07/26/18 09:03; Admin Dose 1 MG; Start 07/17/18 at 21:00 Polyethylene Glycol (Miralax) 8.5 gm DAILY PRN GTB NEEDED; Start 07/17/18 at 18:30 Non-Formulary Medication 1 ea DAILY TRANSDERM Last administered on 07/26/18 09:03; Admin Dose 1 EA; Start 07/18/18 at 09:00 Carbidopa/Levodopa (Sinemet (25/ 100)) 2.5 tab BID@1000,1800 GTB Last administered on 07/26/18 09:03; Admin Dose 2.5 TAB; Start 07/18/18 at 10:00 Carbidopa/Levodopa (Sinemet (25/ 100)) 2 tab BID@1400,2200 GTB Last administered on 07/26/18 14:39; Admin Dose 2 TAB; Start 07/17/18 at 22:00 Miscellaneous Information (Pending [facility] Order For Wound Care) This patient florence... PRN PRN XX WOUND CARE; Start 07/18/18 at 08:00 Acetaminophen (Tylenol Tab) 650 mg Q4H PRN PO MILD PAIN(1-3)OR ELEVATED TEMP Last administered on 07/26/18 11:09; Admin Dose 650 MG; Start 07/21/18 at 10:00 Baclofen (Lioresal) 5 mg BID@0900,1800 GTB Last administered on 07/23/18 09:36; Admin Dose 5 MG; Start 07/21/18 at 18:00; Status Hold Tramadol HCl (Ultram) 50 mg HS PRN GTB MODERATE PAIN LEVEL 4-6; Start 07/22/18 at 23:18 Multivitamins Therapeutic (Theragran) 1 tab DAILY PO Last administered on 07/26/18 09:03; Admin Dose 1 TAB; Start 07/23/18 at 11:30 Albuterol (Proventil 0.083% (Neb)) 2.5 mg Q3H RESP THERAPY PRN NEB WHEEZING AND SOB Last administered on 07/26/18 02:13; Admin Dose 2.5 MG; Start 07/23/18 at 18:30 Hydralazine HCl (Apresoline) 10 mg Q4H PRN IV sbp>165; Start 07/24/18 at 13:00 DEVORA HOSKINS MD Jul 26, 2018 17:30
[2018-07-27] VITALS (40 sets, daily range): BP systolic 77–170; BP diastolic 55–86; PULSE 47–68; RESP 20–60
[2018-07-27] MEDS ORDERED: SOD CHLORIDE 0.9% 1,000 ML IV ONE ×2 (07:00→09:00)
[2018-07-27] MEDS ORDERED: ATROPINE 0.4 MG INJ IV ONE (07:30)
[2018-07-27] MEDS: CARBIDOPA/LEVODOPA (25/100) TAB GTB SCH ×4 (09:48→21:01)
[2018-07-27] MEDS: MULTIVITAMINS THERAPEUTIC TAB PO SCH (09:48)
[2018-07-27] MEDS: ENTACAPONE 200 MG TAB GTB SCH ×4 (09:48→21:01)
[2018-07-27] MEDS: GLYCOPYRROLATE 1 MG TAB GTB SCH ×2 (09:48→21:01)
[2018-07-27] MEDS: BALSAM PERU/CASTOR OIL 60 GM TUBE TOP SCH ×2 (09:49→21:01)
[2018-07-27] MEDS: ROTIGOTINE TRANSDERM SCH (09:50)
[2018-07-27] MEDS: ENOXAPARIN 40 MG/0.4 ML SYG SC SCH (09:52)
[2018-07-27] MEDS ORDERED: LACTATED RINGER'S 500 ML IV ONE (11:30)
--- NOTE | 2018-07-27 11:37 | CONS ---
Consult Date/Type/Reason Admit Date/Time Jul 17, 2018 at 17:22 Initial Consult Date Type of Consultation: Pulm/CCM Date/Time of Note DATE: 07/27/18 TIME: 11:32 Subjective Episodes of hypotension and relative bradycardia noted. Mental status appears slightly worse today. Objective Vitals Vital Signs Date Temp Pulse Resp B/P (MAP) Pulse Ox O2 O2 Flow FiO2 Time Delivery Rate 07/27/18 64 22 140/84 99 10:15 (102) 07/27/18 BIPAP 10:00 07/27/18 30 09:25 07/27/18 98.4 08:00 07/26/18 20.0 21:00 Intake and Output 07/26/18 07/26/18 07/27/18 1515:00 23:00 07:00 IntakeIntake Total 600 ml 706 ml 985 ml OutputOutput Total 630 ml 430 ml 291 ml BalanceBalance -30 ml 276 ml 694 ml Exam HEENT: Neck supple; no JVD; no LAD CVS: RRR, S1 and S2 CHEST: rapid shallow breathing; reduced right sided breath sounds ABD: Soft, NT, + BS EXT: No c/c/e Results/Medications Result Diagram: 07/27/18 0300 07/27/18 0300 Results 24 hrs Laboratory Tests Test 07/26/18 12:52 07/27/18 03:00 07/27/18 05:00 07/27/18 07:00 Blood Gas Blood venous Blood arterial Specimen Source Arterial Blood 07/26/2018 1:10: 07/27/2018 4:40: Date Drawn 25 PM 21 AM Arterial Blood VENOUS LINE Right Radial Gas Puncture Site Leroy Test N/A ACCEPTAB Venous Blood pH 7.326 L Venous Blood 84.5 *H pCO2 (Temp Corrected) Venous Blood pO2 41.4 H (Temp Corrected) Venous Blood 43.2 H HCO3 Venous Blood 75.6 H Oxygen Saturation Venous Blood 13.8 H Base Excess Venous Blood 11.8 Total Hemoglobin Venous Blood 75.1 Oxyhemoglobin Venous Blood 0.3 Methemoglobin Blood Gas A-a O2 220.0 36.1 H Differential Carboxyhemoglobi 0.4 n Blood Gas 37.0 37.0 Temperature Blood Gas Actual 40 19 Respiration Rate Blood Gas HFNC MASK - BIPAP Modality FiO2 50.0 30.0 Blood Gas J.YOUNG RN TUAN, RN Critical Value Read Back Blood Gas RDDARCY DODD Notified Whom Blood Gas 07/26/2018 1:35: 07/27/2018 5:12: Notified Time 48 PM 11 AM White Blood 4.1 #L Count Red Blood Count 3.60 L Hemoglobin 11.3 L Hematocrit 35.9 L Mean Corpuscular 99.7 Volume Mean Corpuscular 31.4 Hemoglobin Mean Corpuscular 31.5 L Hemoglobin Griselda nt Red Cell 12.5 Distribution Width Platelet Count 187 Mean Platelet 9.9 Volume Immature 1.000 H Granulocytes % Neutrophils % 73.2 Lymphocytes % 14.1 L Monocytes % 8.3 Eosinophils % 2.7 Basophils % 0.7 Nucleated Red 0.0 Blood Cells % Immature 0.040 H Granulocytes # Neutrophils # 3.0 Lymphocytes # 0.6 L Monocytes # 0.3 Eosinophils # 0.1 Basophils # 0.0 Nucleated Red 0.0 Blood Cells # Sodium Level 142 Potassium Level 4.2 Chloride Level 97 Carbon Dioxide 41 *H Level Anion Gap 4 L Blood Urea 24 H Nitrogen Creatinine 0.64 Est Glomerular Filtrat Rate mL/min Glucose Level 109 Calcium Level 8.9 Arterial Blood 7.353 pH (Temp corrected) Arterial Blood 77.0 H pCO2 (Temp correct) Arterial Blood 87.3 pO2 (Temp corrected) Arterial Blood 41.8 *H HCO3 Arterial Blood 12.7 H Base Excess Arterial Blood 96.5 Oxygen Saturatio n Arterial 0.9 Blood Carboxyhem oglobin Arterial Blood 0.3 Methemoglobin Oxyhemoglobin 95.3 Percent Blood Gas 14.0 Respiration Rate Blood Gas 10 Pressure Support Blood Gas 15/5 IPAP/EPAP Ratio Lactic Acid 0.8 Level Troponin I < 0.012 Home Meds Reported Medications [Vitamin C] No Conflict Check, 1000 MG GTB DAILY 07/17/18 Ibuprofen* (Ibuprofen*) 200 Mg Capsule, 800 MG GTB QHS PRN for PAIN, CAP 07/17/18 Rotigotine (NEUPRO) 1 Each Patch.td24, 1 EACH TD DAILY 6MG 07/17/18 Polyethylene Glycol* (Miralax*) 17 Gm Powd.pack, 8.5 GM GTB DAILY PRN for NEEDED, #30 PACKET 07/17/18 Baclofen* (Baclofen*) 10 Mg Tablet, 10 MG GTB TID, TAB TAKE 5MG-QAM AND 5MG-QPM, 15MG-QHS 07/17/18 Glycopyrrolate* (Glycopyrrolate*) 1 Mg Tablet, 1 MG GTB BID, TAB 07/17/18 Albuterol Sulfate* (Albuterol Sulfate* Neb) 0.083%-3 Ml Neb, 2.5 MG NEB Q3H PRN for WHEEZING AND SOB, #30 VIAL 07/17/18 Entacapone* (Entacapone*) 200 Mg Tablet, 200 MG GTB QID, TAB 07/17/18 Aspirin* (Aspirin* EC) 81 Mg Tablet.dr, 81 MG GTB DAILY, TAB 07/17/18 Carbidopa/Levodopa (CARBIDOPA-LEVO 25-100 MG ODT) 1 Each Tab.rapdis, 2.5 TAB GTB BID, #90 TAB 10-AM AND 6-PM 07/17/18 Carbidopa/Levodopa (CARBIDOPA-LEVO 25-100 MG ODT) 1 Each Tab.rapdis, 2 TAB GTB BID, #120 TAB 2-PM AND 10-PM 07/17/18 Medications Current Medications IV Flush (NS 3 ml) 3 ml PER PROTOCOL IV ; Start 07/17/18 at 18:00 Enoxaparin Sodium (Lovenox) 40 mg DAILY SC Last administered on 07/27/18 09:52 ; Admin Dose 40 MG; Start 07/18/18 at 09:00 Entacapone (Comtan) 200 mg QID GTB Last administered on 07/27/18at 09:48; Admin Dose 200 MG; Start 07/17/18 at 21:00 Glycopyrrolate (Robinul) 1 mg BID GTB Last administered on 07/27/18at 09:48; Admin Dose 1 MG; Start 07/17/18 at 21:00 Polyethylene Glycol (Miralax) 8.5 gm DAILY PRN GTB NEEDED; Start 07/17/18 at 18:30 Non-Formulary Medication 1 ea DAILY TRANSDERM Last administered on 07/27/18at 09:50; Admin Dose 1 EA; Start 07/18/18 at 09:00 Carbidopa/Levodopa (Sinemet (25/ 100)) 2.5 tab BID@1000,1800 GTB Last administered on 07/27/18 09:48; Admin Dose 2.5 TAB; Start 07/18/18 at 10:00 Carbidopa/Levodopa (Sinemet (25/ 100)) 2 tab BID@1400,2200 GTB Last administered on 07/26/18at 21:00; Admin Dose 2 TAB; Start 07/17/18 at 22:00 [facility] This patient florence... PRN PRN XX WOUND CARE; Start 07/18/18 at 08:00 Acetaminophen (Tylenol Tab) 650 mg Q4H PRN PO MILD PAIN(1-3)OR ELEVATED TEMP Last administered on 07/26/18at 11:09; Admin Dose 650 MG; Start 07/21/18 at 10:00 Baclofen (Lioresal) 5 mg BID@0900,1800 GTB Last administered on 07/23/18at 09:36; Admin Dose 5 MG; Start 07/21/18 at 18:00; Status Hold Tramadol HCl (Ultram) 50 mg HS PRN GTB MODERATE PAIN LEVEL 4-6; Start 07/22/18 at 23:18 Multivitamins Therapeutic (Theragran) 1 tab DAILY PO Last administered on 07/27/18at 09:48; Admin Dose 1 TAB; Start 07/23/18 at 11:30 Albuterol (Proventil 0.083% (Neb)) 2.5 mg Q3H RESP THERAPY PRN NEB WHEEZING AND SOB Last administered on 07/26/18at 02:13; Admin Dose 2.5 MG; Start 07/23/18 at 18:30 Hydralazine HCl (Apresoline) 10 mg Q4H PRN IV sbp>165; Start 07/24/18 at 13:00 Assessment/Plan Assessment/Plan (Daily) Results/Medications Result Diagram: 07/26/18 0800 07/26/18 0800 IMP: 1. Acute on chronic hypoxemic and hypercapnic resp insufficiency, mucous plu gging likely secondary to right mainstem bronchus improved with chest PT and Mucomyst 2. Hypotension and bradycardia--r/o sepsis; consider dysautonomia associated with advanced PD. 3. 3. Aspiration pneumonitis 4. 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 IVF's 2. Panculture 3. Start zosyn 4. Check cortisol and TSH 5. Start Midodrine 6. Dopamine gtt if HR continues to drop 7. Cont CPT/BD's 8. Nocturnal BiPAP Critical care time 40 minutes. Long discussion with family at bedside. CJ SEALS MD Jul 27, 2018 11:37
[2018-07-27] MEDS: PIPER-TAZO 3.375 GM IV (PMX) 100 ML IVPB SCH ×2 (12:04→17:36)
[2018-07-27] MEDS: MIDODRINE 5 MG TAB PEG SCH ×2 (13:40→21:02)
--- NOTE | 2018-07-27 14:18 | CONS ---
Assessment/Plan Assessment/Plan Hospital Course (Demo Recall) SIRS/Sepsis Labile blood pressure Labile heart rate with episodes of bradycardia Mucous plugging/aspiration pneumonitis History of preserved left ventricular ejection fraction Severe Parkinson's -Patient admitted with respiratory pathology including mucous plugging and possible aspiration pneumonia. -Patient with labile heart rates and blood pressure noted. Patient has required intermittent BiPAP. Unclear if this is secondary to hypoxia, sepsis versus autonomic dysfunction. Patient has been put on Midodrine today by high density press laborer. On review of medications, patient has not received hydralazine as needed since ordered. -Family is considering hospice/palliative care. They do have BiPAP at home as well as 24-hour care. Patient currently been put on broad-spectrum antibiotics -Would hold off on any standing antihypertensives Consultation Date/Type/Reason Admit Date/Time Jul 17, 2018 at 17:22 Initial Consult Date Type of Consult Cardiology Date/Time of Note DATE: 07/27/18 TIME: 14:14 24 HR Interval Summary Free Text/Dictation Patient with labile heart rate as well as blood pressure. Mental status is improved but still not able to communicate, in discussion with family, considering palliative care Exam/Review of Systems Vital Signs Vitals Vital Signs Date Temp Pulse Resp B/P (MAP) Pulse Ox O2 O2 Flow FiO2 Time Delivery Rate 07/27/18 62 30 133/69 97 12:30 (90) 07/27/18 97.7 High Flow 12:00 07/27/18 35 11:40 07/26/18 20.0 21:00 Intake and Output 07/26/18 07/26/18 07/27/18 1515:00 23:00 07:00 IntakeIntake Total 600 ml 706 ml 985 ml OutputOutput Total 630 ml 430 ml 291 ml BalanceBalance -30 ml 276 ml 694 ml Exam Exam Awake, unable to communicate, appears at baseline as per family, no apparent distress Head: normocephalic Respiratory: other (Coarse breath sounds bilaterally, no wheezing) Cardiovascular: regular rate and rhythm (S1-S2 heard) Gastrointestinal: soft, non-tender, bowel sounds Extremities: edema Labs Result Diagram: 07/27/18 0300 07/27/18 0300 Results 24hrs Laboratory Tests Test 07/27/18 03:00 07/27/18 05:00 07/27/18 07:00 07/27/18 12:00 White Blood Count 4.1 #L Red Blood Count 3.60 L Hemoglobin 11.3 L Hematocrit 35.9 L Mean Corpuscular 99.7 Volume Mean Corpuscular 31.4 Hemoglobin Mean Corpuscular 31.5 L Hemoglobin Concen t Red Cell 12.5 Distribution Width Platelet Count 187 Mean Platelet 9.9 Volume Immature 1.000 H Granulocytes % Neutrophils % 73.2 Lymphocytes % 14.1 L Monocytes % 8.3 Eosinophils % 2.7 Basophils % 0.7 Nucleated Red 0.0 Blood Cells % Immature 0.040 H Granulocytes # Neutrophils # 3.0 Lymphocytes # 0.6 L Monocytes # 0.3 Eosinophils # 0.1 Basophils # 0.0 Nucleated Red 0.0 Blood Cells # Sodium Level 142 Potassium Level 4.2 Chloride Level 97 Carbon Dioxide 41 *H Level Anion Gap 4 L Blood Urea 24 H Nitrogen Creatinine 0.64 Est Glomerular Filtrat Rate mL/min Glucose Level 109 Calcium Level 8.9 Blood Gas Blood arterial Specimen Source Arterial Blood 07/27/2018 4:40:2 Date Drawn 1 AM Arterial Blood pH 7.353 (Temp corrected) Arterial Blood 77.0 H pCO2 (Temp correct) Arterial Blood 87.3 pO2 (Temp corrected) Arterial Blood 41.8 *H HCO3 Arterial Blood 12.7 H Base Excess Arterial Blood 96.5 Oxygen Saturation Leroy Test ACCEPTAB Arterial Blood Right Radial Gas Puncture Site Arterial 0.9 Blood Carboxyhemo globin Arterial Blood 0.3 Methemoglobin Blood Gas A-a O2 36.1 H Differential Oxyhemoglobin 95.3 Percent Blood Gas 37.0 Temperature Blood Gas 14.0 Respiration Rate Blood Gas Actual 19 Respiration Rate Blood Gas MASK - BIPAP Modality FiO2 30.0 Blood Gas 10 Pressure Support Blood Gas 15/5 IPAP/EPAP Ratio Blood Gas CONNER DICKERSON Critical Value Read Back Blood Gas NC Notified Whom Blood Gas 07/27/2018 5:12:1 Notified Time 1 AM Lactic Acid Level 0.8 Troponin I < 0.012 Thyroid 1.010 Stimulating Hormone (TSH) Random Cortisol 9.8 Medications Medications Current Medications IV Flush (NS 3 ml) 3 ml PER PROTOCOL IV ; Start 07/17/18 at 18:00 Enoxaparin Sodium (Lovenox) 40 mg DAILY SC Last administered on 07/27/18at 09:52; Admin Dose 40 MG; Start 07/18/18 at 09:00 Entacapone (Comtan) 200 mg QID GTB Last administered on 07/27/18 13:40; Admin Dose 200 MG; Start 07/17/18 at 21:00 Glycopyrrolate (Robinul) 1 mg BID GTB Last administered on 07/27/18 09:48; Admin Dose 1 MG; Start 07/17/18 at 21:00 Polyethylene Glycol (Miralax) 8.5 gm DAILY PRN GTB NEEDED; Start 07/17/18 at 18:30 Non-Formulary Medication 1 ea DAILY TRANSDERM Last administered on 07/27/18 09:50; Admin Dose 1 EA; Start 07/18/18 at 09:00 Carbidopa/Levodopa (Sinemet (25/ 100)) 2.5 tab BID@1000,1800 GTB Last administered on 07/27/18 09:48; Admin Dose 2.5 TAB; Start 07/18/18 at 10:00 Carbidopa/Levodopa (Sinemet (25/ 100)) 2 tab BID@1400,2200 GTB Last administered on 07/27/18 13:40; Admin Dose 2 TAB; Start 07/17/18 at 22:00 Miscellaneous Information (Pending [facility] Order For Wound Care) This patient florence... PRN PRN XX WOUND CARE; Start 07/18/18 at 08:00 Acetaminophen (Tylenol Tab) 650 mg Q4H PRN PO MILD PAIN(1-3)OR ELEVATED TEMP Last administered on 07/26/18 11:09; Admin Dose 650 MG; Start 07/21/18 at 10:00 Baclofen (Lioresal) 5 mg BID@0900,1800 GTB Last administered on 07/23/18 09:36; Admin Dose 5 MG; Start 07/21/18 at 18:00; Status Hold Tramadol HCl (Ultram) 50 mg HS PRN GTB MODERATE PAIN LEVEL 4-6; Start 07/22/18 at 23:18 Multivitamins Therapeutic (Theragran) 1 tab DAILY PO Last administered on 07/27/18 09:48; Admin Dose 1 TAB; Start 07/23/18 at 11:30 Albuterol (Proventil 0.083% (Neb)) 2.5 mg Q3H RESP THERAPY PRN NEB WHEEZING AND SOB Last administered on 07/26/18at 02:13; Admin Dose 2.5 MG; Start 07/23/18 at 18:30 Hydralazine HCl (Apresoline) 10 mg Q4H PRN IV sbp>165; Start 07/24/18 at 13:00 Piperacillin Sod/ Tazobactam Sod 100 ml @ 25 mls/hr TID@02,10,18 IVPB Last administered on 07/27/18at 12:04; Admin Dose 25 MLS/HR; Start 07/27/18 at 12:00 Midodrine (Proamatine) 5 mg Q8 PEG Last administered on 07/27/18at 13:40; Admin Dose 5 MG; Start 07/27/18 at 14:00 Sukumar Moore DO Jul 27, 2018 14:18
--- NOTE | 2018-07-27 15:59 | PN ---
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 who presents with respiratory distress and hypoxia Acute on chronic hypercapenic/hypoxic respiratory failure - s/p zosyn x 7 days, restarted on abx 07/27 - Gross aspriation, continue frequent suctioning and chest PT - conintue HFNC 02 for chronic hyperpneic and hypoxic respiratory failure - 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 -> BIPAP - Pulmonary consulted - Tube feeds - Chest percussion Multisystems atrophy vs Parkinsons (unclear diagnosis) - continue home meds with entacapone, sinemet DNR/DNI Result Diagram: 07/27/18 0300 07/27/18 0300 Results 24hrs Laboratory Tests Test 07/27/18 03:00 07/27/18 05:00 07/27/18 07:00 07/27/18 12:00 White Blood Count 4.1 #L Red Blood Count 3.60 L Hemoglobin 11.3 L Hematocrit 35.9 L Mean Corpuscular 99.7 Volume Mean Corpuscular 31.4 Hemoglobin Mean Corpuscular 31.5 L Hemoglobin Concen t Red Cell 12.5 Distribution Width Platelet Count 187 Mean Platelet 9.9 Volume Immature 1.000 H Granulocytes % Neutrophils % 73.2 Lymphocytes % 14.1 L Monocytes % 8.3 Eosinophils % 2.7 Basophils % 0.7 Nucleated Red 0.0 Blood Cells % Immature 0.040 H Granulocytes # Neutrophils # 3.0 Lymphocytes # 0.6 L Monocytes # 0.3 Eosinophils # 0.1 Basophils # 0.0 Nucleated Red 0.0 Blood Cells # Sodium Level 142 Potassium Level 4.2 Chloride Level 97 Carbon Dioxide 41 *H Level Anion Gap 4 L Blood Urea 24 H Nitrogen Creatinine 0.64 Est Glomerular Filtrat Rate mL/min Glucose Level 109 Calcium Level 8.9 Blood Gas Blood arterial Specimen Source Arterial Blood 07/27/2018 4:40:2 Date Drawn 1 AM Arterial Blood pH 7.353 (Temp corrected) Arterial Blood 77.0 H pCO2 (Temp correct) Arterial Blood 87.3 pO2 (Temp corrected) Arterial Blood 41.8 *H HCO3 Arterial Blood 12.7 H Base Excess Arterial Blood 96.5 Oxygen Saturation Leroy Test ACCEPTAB Arterial Blood Right Radial Gas Puncture Site Arterial 0.9 Blood Carboxyhemo globin Arterial Blood 0.3 Methemoglobin Blood Gas A-a O2 36.1 H Differential Oxyhemoglobin 95.3 Percent Blood Gas 37.0 Temperature Blood Gas 14.0 Respiration Rate Blood Gas Actual 19 Respiration Rate Blood Gas MASK - BIPAP Modality FiO2 30.0 Blood Gas 10 Pressure Support Blood Gas 15/5 IPAP/EPAP Ratio Blood Gas CONNER DICKERSON Critical Value Read Back Blood Gas [place] Notified Whom Blood Gas 07/27/2018 5:12:1 Notified Time 1 AM Lactic Acid Level 0.8 Troponin I < 0.012 Thyroid 1.010 Stimulating Hormone (TSH) Random Cortisol 9.8 Subjective 24 Hr Interval Summary Free Text/Dictation A bit more alert today Caregiver at bedside, says he is about at his baseline Exam/Review of Systems Exam Vitals Vital Signs Date Temp Pulse Resp B/P (MAP) Pulse Ox O2 O2 Flow FiO2 Time Delivery Rate 07/27/18 61 24 132/79 98 High Flow 15:00 (96) 07/27/18 97.7 12:00 07/27/18 35 11:40 07/26/18 20.0 21:00 Intake and Output 07/26/18 07/26/18 07/27/18 1515:00 23:00 07:00 IntakeIntake Total 600 ml 706 ml 985 ml OutputOutput Total 630 ml 430 ml 291 ml BalanceBalance -30 ml 276 ml 694 ml Exam Alert Nonverbal Breathing comfortably but very shallow TVs RRR Soft nt nd, G tube Results Results 24hrs Laboratory Tests Test 07/27/18 03:00 07/27/18 05:00 07/27/18 07:00 07/27/18 12:00 White Blood Count 4.1 #L Red Blood Count 3.60 L Hemoglobin 11.3 L Hematocrit 35.9 L Mean Corpuscular 99.7 Volume Mean Corpuscular 31.4 Hemoglobin Mean Corpuscular 31.5 L Hemoglobin Concen t Red Cell 12.5 Distribution Width Platelet Count 187 Mean Platelet 9.9 Volume Immature 1.000 H Granulocytes % Neutrophils % 73.2 Lymphocytes % 14.1 L Monocytes % 8.3 Eosinophils % 2.7 Basophils % 0.7 Nucleated Red 0.0 Blood Cells % Immature 0.040 H Granulocytes # Neutrophils # 3.0 Lymphocytes # 0.6 L Monocytes # 0.3 Eosinophils # 0.1 Basophils # 0.0 Nucleated Red 0.0 Blood Cells # Sodium Level 142 Potassium Level 4.2 Chloride Level 97 Carbon Dioxide 41 *H Level Anion Gap 4 L Blood Urea 24 H Nitrogen Creatinine 0.64 Est Glomerular Filtrat Rate mL/min Glucose Level 109 Calcium Level 8.9 Blood Gas Blood arterial Specimen Source Arterial Blood 07/27/2018 4:40:2 Date Drawn 1 AM Arterial Blood pH 7.353 (Temp corrected) Arterial Blood 77.0 H pCO2 (Temp correct) Arterial Blood 87.3 pO2 (Temp corrected) Arterial Blood 41.8 *H HCO3 Arterial Blood 12.7 H Base Excess Arterial Blood 96.5 Oxygen Saturation Leroy Test ACCEPTAB Arterial Blood Right Radial Gas Puncture Site Arterial 0.9 Blood Carboxyhemo globin Arterial Blood 0.3 Methemoglobin Blood Gas A-a O2 36.1 H Differential Oxyhemoglobin 95.3 Percent Blood Gas 37.0 Temperature Blood Gas 14.0 Respiration Rate Blood Gas Actual 19 Respiration Rate Blood Gas MASK - BIPAP Modality FiO2 30.0 Blood Gas 10 Pressure Support Blood Gas 15/5 IPAP/EPAP Ratio Blood Gas CONNER DICKERSON Critical Value Read Back Blood Gas [place] Notified Whom Blood Gas 07/27/2018 5:12:1 Notified Time 1 AM Lactic Acid Level 0.8 Troponin I < 0.012 Thyroid 1.010 Stimulating Hormone (TSH) Random Cortisol 9.8 Medications Medication Current Medications IV Flush (NS 3 ml) 3 ml PER PROTOCOL IV ; Start 07/17/18 at 18:00 Enoxaparin Sodium (Lovenox) 40 mg DAILY SC Last administered on 07/27/18 09:52; Admin Dose 40 MG; Start 07/18/18 at 09:00 Entacapone (Comtan) 200 mg QID GTB Last administered on 07/27/18 13:40; Admin Dose 200 MG; Start 07/17/18 at 21:00 Glycopyrrolate (Robinul) 1 mg BID GTB Last administered on 07/27/18 09:48; Admin Dose 1 MG; Start 07/17/18 at 21:00 Polyethylene Glycol (Miralax) 8.5 gm DAILY PRN GTB NEEDED; Start 07/17/18 at 18:30 Non-Formulary Medication 1 ea DAILY TRANSDERM Last administered on 07/27/18 09:50; Admin Dose 1 EA; Start 07/18/18 at 09:00 Carbidopa/Levodopa (Sinemet (25/ 100)) 2.5 tab BID@1000,1800 GTB Last administered on 07/27/18 09:48; Admin Dose 2.5 TAB; Start 07/18/18 at 10:00 Carbidopa/Levodopa (Sinemet (25/ 100)) 2 tab BID@1400,2200 GTB Last administered on 07/27/18 13:40; Admin Dose 2 TAB; Start 07/17/18 at 22:00 Miscellaneous Information (Pending Santyl Order For Wound Care) This patient florence... PRN PRN XX WOUND CARE; Start 07/18/18 at 08:00 Acetaminophen (Tylenol Tab) 650 mg Q4H PRN PO MILD PAIN(1-3)OR ELEVATED TEMP Last administered on 07/26/18 11:09; Admin Dose 650 MG; Start 07/21/18 at 10:00 Baclofen (Lioresal) 5 mg BID@0900,1800 GTB Last administered on 07/23/18 09:36; Admin Dose 5 MG; Start 07/21/18 at 18:00; Status Hold Tramadol HCl (Ultram) 50 mg HS PRN GTB MODERATE PAIN LEVEL 4-6; Start 07/22/18 at 23:18 Multivitamins Therapeutic (Theragran) 1 tab DAILY PO Last administered on 07/27/18 09:48; Admin Dose 1 TAB; Start 07/23/18 at 11:30 Albuterol (Proventil 0.083% (Neb)) 2.5 mg Q3H RESP THERAPY PRN NEB WHEEZING AND SOB Last administered on 07/26/18 02:13; Admin Dose 2.5 MG; Start 07/23/18 at 18:30 Hydralazine HCl (Apresoline) 10 mg Q4H PRN IV sbp>165; Start 07/24/18 at 13:00 Piperacillin Sod/ Tazobactam Sod 100 ml @ 25 mls/hr TID@02,10,18 IVPB Last administered on 07/27/18at 12:04; Admin Dose 25 MLS/HR; Start 07/27/18 at 12:00 Midodrine (Proamatine) 5 mg Q8 PEG Last administered on 07/27/18at 13:40; Admin Dose 5 MG; Start 07/27/18 at 14:00 DEVORA HOSKINS MD Jul 27, 2018 15:59
[2018-07-27] MEDS: ACETAMINOPHEN 325 MG TAB PO PRN ×2 (16:23→21:00)
--- NOTE | 2018-07-27 16:25 | RADRPT ---
Vent Rate: 51 bpm RR Interval: 0 msec OH Interval: 128 msec QRS Duration: 136 msec QT Interval: 434 msec QTC Interval: 400 msec P-R-T Sparks: 54 - 80 - 47 degrees Sinus bradycardia Right bundle branch block Abnormal ECG Electronically Signed By: Sukumar Moore
[2018-07-28] VITALS (24 sets, daily range): BP systolic 95–169; BP diastolic 58–101; PULSE 55–76; RESP 18–68
[2018-07-28] MEDS: PIPER-TAZO 3.375 GM IV (PMX) 100 ML IVPB SCH ×3 (01:52→17:28)
[2018-07-28] MEDS: MIDODRINE 5 MG TAB PEG SCH ×3 (05:21→21:15)
[2018-07-28] MEDS ORDERED: hydrALAzine 20 MG INJ IV PRN (06:30)
[2018-07-28] MEDS: GLYCOPYRROLATE 1 MG TAB GTB SCH ×2 (08:35→21:15)
[2018-07-28] MEDS: ENTACAPONE 200 MG TAB GTB SCH ×4 (08:35→21:15)
[2018-07-28] MEDS: MULTIVITAMINS THERAPEUTIC TAB PO SCH (08:36)
[2018-07-28] MEDS: ROTIGOTINE TRANSDERM SCH (08:36)
[2018-07-28] MEDS: BALSAM PERU/CASTOR OIL 60 GM TUBE TOP SCH ×2 (08:36→21:18)
[2018-07-28] MEDS: ENOXAPARIN 40 MG/0.4 ML SYG SC SCH (08:37)
[2018-07-28] MEDS: CARBIDOPA/LEVODOPA (25/100) TAB GTB SCH ×4 (08:59→21:15)
--- NOTE | 2018-07-28 09:37 | CONS ---
Consult Date/Type/Reason Admit Date/Time Jul 17, 2018 at 17:22 Initial Consult Date Type of Consult Pulmonary Date/Time of Note DATE: 07/28/18 TIME: 09:35 Subjective Patient continues high flow O2 this morning. Chest x-ray shows worsening right effusion versus infiltrate. Objective Vital Signs Date Temp Pulse Resp B/P (MAP) Pulse Ox O2 O2 Flow FiO2 Time Delivery Rate 07/28/18 70 54 169/101 97 High Flow 06:00 (123) 07/28/18 99.3 04:00 07/28/18 45 02:25 07/26/18 20.0 21:00 Intake and Output 07/27/18 07/27/18 07/28/18 1515:00 23:00 07:00 IntakeIntake Total 1971 ml 519 ml 955 ml OutputOutput Total 635 ml 485 ml 897 ml BalanceBalance 1336 ml 34 ml 58 ml Exam GENERAL: Frail elderly gentleman on high flow O2 40% 30 L/min VITAL SIGNS: per chart NECK: Supple. No JVD or lymphadenopathy. CARDIAC EXAM: S1, S2. No added sounds or murmurs. CHEST: Diminished air entry bilaterally ABDOMEN: Soft, nontender. No guarding or rebound. EXTREMITIES: No cyanosis, clubbing or edema. NEUROLOGIC: Generalized weakness. Vent Setting Fraction of Inspired Oxygen pe: 45 Results/Medications Result Diagram: 07/28/18 0430 07/28/18 0430 Results 24 hrs Laboratory Tests Test 07/27/18 12:00 07/28/18 04:30 07/28/18 04:43 07/28/18 05:00 Thyroid 1.010 Stimulating Hormone (TSH) Random Cortisol 9.8 White Blood Count 4.8 Red Blood Count 3.50 L Hemoglobin 10.8 L Hematocrit 33.9 L Mean Corpuscular 96.9 Volume Mean Corpuscular 30.9 Hemoglobin Mean Corpuscular 31.9 L Hemoglobin Concen t Red Cell 12.4 Distribution Width Platelet Count 212 Mean Platelet 10.3 Volume Immature 0.600 H Granulocytes % Neutrophils % 75.4 Lymphocytes % 13.9 L Monocytes % 6.2 Eosinophils % 3.3 Basophils % 0.6 Nucleated Red 0.0 Blood Cells % Immature 0.030 Granulocytes # Neutrophils # 3.6 Lymphocytes # 0.7 L Monocytes # 0.3 Eosinophils # 0.2 Basophils # 0.0 Nucleated Red 0.0 Blood Cells # Sodium Level 144 Potassium Level 3.9 Chloride Level 102 Carbon Dioxide 39 H Level Anion Gap 3 L Blood Urea 24 H Nitrogen Creatinine 0.62 Est Glomerular Filtrat Rate mL/min Glucose Level 100 Calcium Level 8.7 Lactic Acid Level 0.7 Blood Gas Blood arterial Specimen Source Arterial Blood 07/28/2018 5:00:3 Date Drawn 6 AM Arterial Blood pH 7.377 (Temp corrected) Arterial Blood 73.5 H pCO2 (Temp correct) Arterial Blood 70.8 L pO2 (Temp corrected) Arterial Blood 42.2 *H HCO3 Arterial Blood 12.6 H Base Excess Arterial Blood 94.3 L Oxygen Saturation Leroy Test ACCEPTAB Arterial Blood Right Radial Gas Puncture Site Arterial 0.6 Blood Carboxyhemo globin Arterial Blood 0.3 Methemoglobin Blood Gas A-a O2 166.4 H Differential Oxyhemoglobin 93.5 Percent Blood Gas 37.0 Temperature Blood Gas HFNC Modality FiO2 45.0 Blood Gas COH RN Critical Value Read Back Blood Gas [place] Notified Whom Blood Gas 07/28/2018 5:25:0 Notified Time 8 AM Medications Current Medications IV Flush (NS 3 ml) 3 ml PER PROTOCOL IV ; Start 07/17/18 at 18:00 Enoxaparin Sodium (Lovenox) 40 mg DAILY SC Last administered on 07/28/18 08:37; Admin Dose 40 MG; Start 07/18/18 at 09:00 Entacapone (Comtan) 200 mg QID GTB Last administered on 07/28/18 08:35; Admin Dose 200 MG; Start 07/17/18 at 21:00 Glycopyrrolate (Robinul) 1 mg BID GTB Last administered on 07/28/18 08:35; A dmin Dose 1 MG; Start 07/17/18 at 21:00 Polyethylene Glycol (Miralax) 8.5 gm DAILY PRN GTB NEEDED; Start 07/17/18 at 18:30 Non-Formulary Medication 1 ea DAILY TRANSDERM Last administered on 07/28/18 08:36; Admin Dose 1 EA; Start 07/18/18 at 09:00 Carbidopa/Levodopa (Sinemet (25/ )) 2.5 tab BID@1000,1800 GTB Last administered on 07/28/18 08:59; Admin Dose 2.5 TAB; Start 07/18/18 at 10:00 Carbidopa/Levodopa (Sinemet (25/ 100)) 2 tab BID@1400,2200 GTB Last administered on 07/27/18 21:01; Admin Dose 2 TAB; Start 07/17/18 at 22:00 Miscellaneous Information (Pending Santyl Order For Wound Care) This patient florence... PRN PRN XX WOUND CARE; Start 07/18/18 at 08:00 Acetaminophen (Tylenol Tab) 650 mg Q4H PRN PO MILD PAIN(1-3)OR ELEVATED TEMP Last administered on 07/27/18 21:00; Admin Dose 650 MG; Start 07/21/18 at 10:00 Baclofen (Lioresal) 5 mg BID@0900,1800 GTB Last administered on 07/23/18 09:36; Admin Dose 5 MG; Start 07/21/18 at 18:00; Status Hold Tramadol HCl (Ultram) 50 mg HS PRN GTB MODERATE PAIN LEVEL 4-6; Start 07/22/18 at 23:18 Multivitamins Therapeutic (Theragran) 1 tab DAILY PO Last administered on 07/28/18 08:36; Admin Dose 1 TAB; Start 07/23/18 at 11:30 Albuterol (Proventil 0.083% (Neb)) 2.5 mg Q3H RESP THERAPY PRN NEB WHEEZING AND SOB Last administered on 07/26/18at 02:13; Admin Dose 2.5 MG; Start 07/23/18 at 18:30 Hydralazine HCl (Apresoline) 10 mg Q4H PRN IV sbp>165; Start 07/24/18 at 13:00 Piperacillin Sod/ Tazobactam Sod 100 ml @ 25 mls/hr TID@02,10,18 IVPB Last administered on 07/28/18at 01:52; Admin Dose 25 MLS/HR; Start 07/27/18 at 12:00 Midodrine (Proamatine) 5 mg Q8 PEG Last administered on 07/28/18 05:21; Admin Dose 5 MG; Start 07/27/18 at 14:00 Hydralazine HCl (Apresoline) 10 mg Q4H PRN IV HYPERTENSION; Start 07/28/18 at 06:30 Assessment/Plan Hospital Course (Demo Recall) IMP: 1. Acute on chronic hypoxemic and hypercapnic resp insufficiency, mucous plugging likely secondary to right mainstem bronchus improved with chest PT and Mucomyst 2. Hypotension and bradycardia--r/o sepsis; consider dysautonomia associated with advanced PD. 3. Aspiration pneumonitis 4. Advanced Parkinson's disease with associated restrictive chest wall dysfunction 5. Possible right pleural effusion versus pneumonia RECS: 1. IVF's 2. Panculture 3. Continue antibiotics 4. Check cortisol and TSH 5. Start Midodrine 6. Right thoracentesis with pleural fluid studies 7. Cont CPT/BD's 8. Nocturnal BiPAP Family requesting palliative care evaluation I will contact social service liaison request SANDHYA Gonzalez MD, [facility] Jul 28, 2018 09:37
--- NOTE | 2018-07-28 12:25 | CONS ---
Assessment/Plan Assessment/Plan Hospital Course (Demo Recall) SIRS/Sepsis Labile blood pressure Labile heart rate with episodes of bradycardia Mucous plugging/aspiration pneumonitis History of preserved left ventricular ejection fraction Severe Parkinson's -Patient admitted with respiratory pathology including mucous plugging and possible aspiration pneumonia. -Patient with labile heart rates and blood pressure noted. Patient has required intermittent BiPAP. Unclear if this is secondary to hypoxia, sepsis versus autonomic dysfunction. Patient has been put on Midodrine by sole conditioner. Blood pressure has been on the higher side since addition of Midodrine. We will continue to follow trend, consider holding parameters or decreasing dose to 2.5 mg -Family is considering hospice/palliative care. They do have BiPAP at home as well as 24-hour care. Patient currently been put on broad-spectrum antibiotics -Would hold off on any standing antihypertensives -In discussion with pulmonary, plan for thoracentesis today Consultation Date/Type/Reason Admit Date/Time Jul 17, 2018 at 17:22 Initial Consult Date Type of Consult Cardiology Date/Time of Note DATE: 07/28/18 TIME: 12:23 24 HR Interval Summary Free Text/Dictation Patient more awake today. No new issues as per family Exam/Review of Systems Vital Signs Vitals Vital Signs Date Temp Pulse Resp B/P (MAP) Pulse Ox O2 O2 Flow FiO2 Time Delivery Rate 07/28/18 66 08:00 07/28/18 54 169/101 97 High Flow 06:00 (123) 07/28/18 99.3 04:00 07/28/18 45 02:25 07/26/18 20.0 21:00 Intake and Output 07/27/18 07/27/18 07/28/18 1515:00 23:00 07:00 IntakeIntake Total 1971 ml 519 ml 955 ml OutputOutput Total 635 ml 485 ml 897 ml BalanceBalance 1336 ml 34 ml 58 ml Exam Constitutional: alert (Track me around the room, no apparent distress, family bedside) Head: normocephalic Respiratory: other (Coarse breath sounds bilaterally, decreased at the base) Cardiovascular: regular rate and rhythm (S1-S2 heard) Gastrointestinal: soft, non-tender, bowel sounds Extremities: other (No significant edema) Labs Result Diagram: 07/28/18 0430 07/28/18 0430 Results 24hrs Laboratory Tests Test 07/28/18 04:30 07/28/18 04:43 07/28/18 05:00 White Blood Count 4.8 Red Blood Count 3.50 L Hemoglobin 10.8 L Hematocrit 33.9 L Mean Corpuscular Volume 96.9 Mean Corpuscular Hemoglobin 30.9 Mean Corpuscular 31.9 L Hemoglobin Concent Red Cell Distribution Width 12.4 Platelet Count 212 Mean Platelet Volume 10.3 Immature Granulocytes % 0.600 H Neutrophils % 75.4 Lymphocytes % 13.9 L Monocytes % 6.2 Eosinophils % 3.3 Basophils % 0.6 Nucleated Red Blood Cells % 0.0 Immature Granulocytes # 0.030 Neutrophils # 3.6 Lymphocytes # 0.7 L Monocytes # 0.3 Eosinophils # 0.2 Basophils # 0.0 Nucleated Red Blood Cells # 0.0 Sodium Level 144 Potassium Level 3.9 Chloride Level 102 Carbon Dioxide Level 39 H Anion Gap 3 L Blood Urea Nitrogen 24 H Creatinine 0.62 Est Glomerular Filtrat Rate mL/min Glucose Level 100 Calcium Level 8.7 Lactic Acid Level 0.7 Blood Gas Specimen Source Blood arterial Arterial Blood Date Drawn 07/28/2018 5:00:36 AM Arterial Blood pH 7.377 (Temp corrected) Arterial Blood pCO2 73.5 H (Temp correct) Arterial Blood pO2 70.8 L (Temp corrected) Arterial Blood HCO3 42.2 *H Arterial Blood Base Excess 12.6 H Arterial Blood 94.3 L Oxygen Saturation Leroy Test ACCEPTAB Arterial Blood Gas Right Radial Puncture Site Arterial 0.6 Blood Carboxyhemoglobin Arterial Blood Methemoglobin 0.3 Blood Gas A-a O2 166.4 H Differential Oxyhemoglobin Percent 93.5 Blood Gas Temperature 37.0 Blood Gas Modality HFNC FiO2 45.0 Blood Gas Critical Value COH RN Read Back Blood Gas Notified Whom MA Blood Gas Notified Time 07/28/2018 5:25:08 AM Medications Medications Current Medications IV Flush (NS 3 ml) 3 ml PER PROTOCOL IV ; Start 07/17/18 at 18:00 Enoxaparin Sodium (Lovenox) 40 mg DAILY SC Last administered on 07/28/18at 08:37; Admin Dose 40 MG; Start 07/18/18 at 09:00 Entacapone (Comtan) 200 mg QID GTB Last administered on 07/28/18at 08:35; Admin Dose 200 MG; Start 07/17/18 at 21:00 Glycopyrrolate (Robinul) 1 mg BID GTB Last administered on 07/28/18 08:35; Admin Dose 1 MG; Start 07/17/18 at 21:00 Polyethylene Glycol (Miralax) 8.5 gm DAILY PRN GTB NEEDED; Start 07/17/18 at 18:30 Non-Formulary Medication 1 ea DAILY TRANSDERM Last administered on 07/28/18 08:36; Admin Dose 1 EA; Start 07/18/18 at 09:00 Carbidopa/Levodopa (Sinemet (25/ 100)) 2.5 tab BID@1000,1800 GTB Last administered on 07/28/18 08:59; Admin Dose 2.5 TAB; Start 07/18/18 at 10:00 Carbidopa/Levodopa (Sinemet (25/ 100)) 2 tab BID@1400,2200 GTB Last administere d on 07/27/18 21:01; Admin Dose 2 TAB; Start 07/17/18 at 22:00 Miscellaneous Information (Pending [facility] Order For Wound Care) This patient florence... PRN PRN XX WOUND CARE; Start 07/18/18 at 08:00 Acetaminophen (Tylenol Tab) 650 mg Q4H PRN PO MILD PAIN(1-3)OR ELEVATED TEMP Last administered on 07/27/18 21:00; Admin Dose 650 MG; Start 07/21/18 at 10:00 Baclofen (Lioresal) 5 mg BID@0900,1800 GTB Last administered on 07/23/18 09:36; Admin Dose 5 MG; Start 07/21/18 at 18:00; Status Hold Tramadol HCl (Ultram) 50 mg HS PRN GTB MODERATE PAIN LEVEL 4-6; Start 07/22/18 at 23:18 Multivitamins Therapeutic (Theragran) 1 tab DAILY PO Last administered on 07/28/18 08:36; Admin Dose 1 TAB; Start 07/23/18 at 11:30 Albuterol (Proventil 0.083% (Neb)) 2.5 mg Q3H RESP THERAPY PRN NEB WHEEZING AND SOB Last administered on 07/26/18 02:13; Admin Dose 2.5 MG; Start 07/23/18 at 18:30 Hydralazine HCl (Apresoline) 10 mg Q4H PRN IV sbp>165; Start 07/24/18 at 13:00 Piperacillin Sod/ Tazobactam Sod 100 ml @ 25 mls/hr TID@02,,18 IVPB Last administered on 07/28/18at 09:37; Admin Dose 25 MLS/HR; Start 07/27/18 at 12:00 Midodrine (Proamatine) 5 mg Q8 PEG Last administered on 07/28/18at 05:21; Admin Dose 5 MG; Start 07/27/18 at 14:00 Hydralazine HCl (Apresoline) 10 mg Q4H PRN IV HYPERTENSION; Start 07/28/18 at 06:30 Sukumar Moore DO Jul 28, 2018 12:25
[2018-07-28] MEDS: ACETAMINOPHEN 325 MG TAB PO PRN (13:45)
--- NOTE | 2018-07-28 14:38 | PN ---
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 who presents with respiratory distress and hypoxia Acute on chronic hypercapenic/hypoxic respiratory failure - s/p zosyn x 7 days, restarted on abx 07/27 -Thoracentesis today - Gross aspiration, continue frequent suctioning and chest PT -Continue HFNC 02 for chronic hyperpneic and hypoxic respiratory failure - 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 -> BIPAP - Pulmonary consulted - Tube feeds - Chest percussion Multisystems atrophy vs Parkinsons (unclear diagnosis) - continue home meds with entacapone, sinemet DNR/DNI Prophylaxis: Lovenox Result Diagram: 07/28/18 0430 07/28/18 0430 Results 24hrs Laboratory Tests Test 07/28/18 04:30 07/28/18 04:43 07/28/18 05:00 White Blood Count 4.8 Red Blood Count 3.50 L Hemoglobin 10.8 L Hematocrit 33.9 L Mean Corpuscular Volume 96.9 Mean Corpuscular Hemoglobin 30.9 Mean Corpuscular 31.9 L Hemoglobin Concent Red Cell Distribution Width 12.4 Platelet Count 212 Mean Platelet Volume 10.3 Immature Granulocytes % 0.600 H Neutrophils % 75.4 Lymphocytes % 13.9 L Monocytes % 6.2 Eosinophils % 3.3 Basophils % 0.6 Nucleated Red Blood Cells % 0.0 Immature Granulocytes # 0.030 Neutrophils # 3.6 Lymphocytes # 0.7 L Monocytes # 0.3 Eosinophils # 0.2 Basophils # 0.0 Nucleated Red Blood Cells # 0.0 Sodium Level 144 Potassium Level 3.9 Chloride Level 102 Carbon Dioxide Level 39 H Anion Gap 3 L Blood Urea Nitrogen 24 H Creatinine 0.62 Est Glomerular Filtrat Rate mL/min Glucose Level 100 Calcium Level 8.7 Lactic Acid Level 0.7 Blood Gas Specimen Source Blood arterial Arterial Blood Date Drawn 07/28/2018 5:00:36 AM Arterial Blood pH 7.377 (Temp corrected) Arterial Blood pCO2 73.5 H (Temp correct) Arterial Blood pO2 70.8 L (Temp corrected) Arterial Blood HCO3 42.2 *H Arterial Blood Base Excess 12.6 H Arterial Blood 94.3 L Oxygen Saturation Leroy Test ACCEPTAB Arterial Blood Gas Right Radial Puncture Site Arterial 0.6 Blood Carboxyhemoglobin Arterial Blood Methemoglobin 0.3 Blood Gas A-a O2 166.4 H Differential Oxyhemoglobin Percent 93.5 Blood Gas Temperature 37.0 Blood Gas Modality HFNC FiO2 45.0 Blood Gas Critical Value COH RN Read Back Blood Gas Notified Whom MA Blood Gas Notified Time 07/28/2018 5:25:08 AM Subjective 24 Hr Interval Summary Constitutional: no complaints Exam/Review of Systems Exam Vitals Vital Signs Date Temp Pulse Resp B/P (MAP) Pulse Ox O2 O2 Flow FiO2 Time Delivery Rate 07/28/18 66 12:00 07/28/18 54 169/101 97 High Flow 06:00 (123) 07/28/18 99.3 04:00 07/28/18 45 02:25 07/26/18 20.0 21:00 Intake and Output 07/27/18 07/27/18 07/28/18 1515:00 23:00 07:00 IntakeIntake Total 1971 ml 519 ml 955 ml OutputOutput Total 635 ml 485 ml 897 ml BalanceBalance 1336 ml 34 ml 58 ml Constitutional: alert Respiratory: clear to auscultation Cardiovascular: regular rate and rhythm Gastrointestinal: soft; No distended Musculoskeletal: nl extremities to inspection Results Results 24hrs Laboratory Tests Test 07/28/18 04:30 07/28/18 04:43 07/28/18 05:00 White Blood Count 4.8 Red Blood Count 3.50 L Hemoglobin 10.8 L Hematocrit 33.9 L Mean Corpuscular Volume 96.9 Mean Corpuscular Hemoglobin 30.9 Mean Corpuscular 31.9 L Hemoglobin Concent Red Cell Distribution Width 12.4 Platelet Count 212 Mean Platelet Volume 10.3 Immature Granulocytes % 0.600 H Neutrophils % 75.4 Lymphocytes % 13.9 L Monocytes % 6.2 Eosinophils % 3.3 Basophils % 0.6 Nucleated Red Blood Cells % 0.0 Immature Granulocytes # 0.030 Neutrophils # 3.6 Lymphocytes # 0.7 L Monocytes # 0.3 Eosinophils # 0.2 Basophils # 0.0 Nucleated Red Blood Cells # 0.0 Sodium Level 144 Potassium Level 3.9 Chloride Level 102 Carbon Dioxide Level 39 H Anion Gap 3 L Blood Urea Nitrogen 24 H Creatinine 0.62 Est Glomerular Filtrat Rate mL/min Glucose Level 100 Calcium Level 8.7 Lactic Acid Level 0.7 Blood Gas Specimen Source Blood arterial Arterial Blood Date Drawn 07/28/2018 5:00:36 AM Arterial Blood pH 7.377 (Temp corrected) Arterial Blood pCO2 73.5 H (Temp correct) Arterial Blood pO2 70.8 L (Temp corrected) Arterial Blood HCO3 42.2 *H Arterial Blood Base Excess 12.6 H Arterial Blood 94.3 L Oxygen Saturation Leroy Test ACCEPTAB Arterial Blood Gas Right Radial Puncture Site Arterial 0.6 Blood Carboxyhemoglobin Arterial Blood Methemoglobin 0.3 Blood Gas A-a O2 166.4 H Differential Oxyhemoglobin Percent 93.5 Blood Gas Temperature 37.0 Blood Gas Modality HFNC FiO2 45.0 Blood Gas Critical Value COH RN Read Back Blood Gas Notified Whom MA Blood Gas Notified Time 07/28/2018 5:25:08 AM Medications Medication Current Medications IV Flush (NS 3 ml) 3 ml PER PROTOCOL IV ; Start 07/17/18 at 18:00 Enoxaparin Sodium (Lovenox) 40 mg DAILY SC Last administered on 07/28/18 08:37; Admin Dose 40 MG; Start 07/18/18 at 09:00 Entacapone (Comtan) 200 mg QID GTB Last administered on 07/28/18 13:45; Admin Dose 200 MG; Start 07/17/18 at 21:00 Glycopyrrolate (Robinul) 1 mg BID GTB Last administered on 07/28/18 08:35; Admin Dose 1 MG; Start 07/17/18 at 21:00 Polyethylene Glycol (Miralax) 8.5 gm DAILY PRN GTB NEEDED; Start 07/17/18 at 18:30 Non-Formulary Medication 1 ea DAILY TRANSDERM Last administered on 07/28/18 08:36; Admin Dose 1 EA; Start 07/18/18 at 09:00 Carbidopa/Levodopa (Sinemet (25/ 100)) 2.5 tab BID@1000,1800 GTB Last administered on 07/28/18 08:59; Admin Dose 2.5 TAB; Start 07/18/18 at 10:00 Carbidopa/Levodopa (Sinemet (25/ 100)) 2 tab BID@1400,2200 GTB Last administered on 07/28/18 13:45; Admin Dose 2 TAB; Start 07/17/18 at 22:00 Miscellaneous Information (Pending Santyl Order For Wound Care) This patient florence... PRN PRN XX WOUND CARE; Start 07/18/18 at 08:00 Acetaminophen (Tylenol Tab) 650 mg Q4H PRN PO MILD PAIN(1-3)OR ELEVATED TEMP Last administered on 07/28/18 13:45; Admin Dose 650 MG; Start 07/21/18 at 10:00 Baclofen (Lioresal) 5 mg BID@0900,1800 GTB Last administered on 07/23/18 09:36; Admin Dose 5 MG; Start 07/21/18 at 18:00; Status Hold Tramadol HCl (Ultram) 50 mg HS PRN GTB MODERATE PAIN LEVEL 4-6; Start 07/22/18 at 23:18 Multivitamins Therapeutic (Theragran) 1 tab DAILY PO Last administered on 07/28/18 08:36; Admin Dose 1 TAB; Start 07/23/18 at 11:30 Albuterol (Proventil 0.083% (Neb)) 2.5 mg Q3H RESP THERAPY PRN NEB WHEEZING AND SOB Last administered on 07/26/18 02:13; Admin Dose 2.5 MG; Start 07/23/18 at 18:30 Hydralazine HCl (Apresoline) 10 mg Q4H PRN IV sbp>165; Start 07/24/18 at 13:00 Piperacillin Sod/ Tazobactam Sod 100 ml @ 25 mls/hr TID@02,,18 IVPB Last administered on 07/28/18 09:37; Admin Dose 25 MLS/HR; Start 07/27/18 at 12:00 Midodrine (Proamatine) 5 mg Q8 PEG Last administered on 07/28/18 13:45; Admin Dose 5 MG; Start 07/27/18 at 14:00 Hydralazine HCl (Apresoline) 10 mg Q4H PRN IV HYPERTENSION; Start 07/28/18 at 06:30 DOROTHY BONE Jul 28, 2018 14:38
[2018-07-28] MEDS: ALBUTEROL 0.083% (NEB) 2.5 MG/3 ML AMP NEB PRN (20:15)
[2018-07-29] VITALS (19 sets, daily range): BP systolic 111–152; BP diastolic 59–88; PULSE 47–67; RESP 23–67
[2018-07-29] MEDS: ALBUTEROL 0.083% (NEB) 2.5 MG/3 ML AMP NEB PRN (01:24)
[2018-07-29] MEDS: PIPER-TAZO 3.375 GM IV (PMX) 100 ML IVPB SCH ×3 (01:48→17:41)
[2018-07-29] MEDS: MIDODRINE 5 MG TAB PEG SCH ×3 (06:07→21:47)
[2018-07-29] MEDS: GLYCOPYRROLATE 1 MG TAB GTB SCH ×2 (08:28→21:44)
[2018-07-29] MEDS: ENTACAPONE 200 MG TAB GTB SCH ×4 (08:28→21:44)
[2018-07-29] MEDS: MULTIVITAMINS THERAPEUTIC TAB PO SCH (08:29)
[2018-07-29] MEDS: BALSAM PERU/CASTOR OIL 60 GM TUBE TOP SCH ×2 (08:37→21:45)
[2018-07-29] MEDS: ENOXAPARIN 40 MG/0.4 ML SYG SC SCH (08:43)
[2018-07-29] MEDS: CARBIDOPA/LEVODOPA (25/100) TAB GTB SCH ×4 (09:28→21:45)
[2018-07-29] MEDS: ROTIGOTINE TRANSDERM SCH (09:36)
--- NOTE | 2018-07-29 10:30 | CONS ---
Consult Date/Type/Reason Admit Date/Time Jul 17, 2018 at 17:22 Initial Consult Date Type of Consult Pulmonary Date/Time of Note DATE: 07/29/18 TIME: 10:27 Subjective Continues to improve now on nasal cannula O2. Objective Vital Signs Date Temp Pulse Resp B/P (MAP) Pulse Ox O2 O2 Flow FiO2 Time Delivery Rate 07/29/18 56 48 118/75 93 Nasal 2.0 10:00 (89) Cannula 07/29/18 97.9 08:00 07/29/18 30 07:20 Intake and Output 07/28/18 07/28/18 07/29/18 1515:00 23:00 07:00 IntakeIntake Total 820 ml 845 ml 1020 ml OutputOutput Total 760 ml 400 ml 450 ml BalanceBalance 60 ml 445 ml 570 ml Exam GENERAL: Frail elderly gentleman on nasal cannula O2 VITAL SIGNS: per chart NECK: Supple. No JVD or lymphadenopathy. CARDIAC EXAM: S1, S2. No added sounds or murmurs. CHEST: Diminished air entry bilaterally ABDOMEN: Soft, nontender. No guarding or rebound. EXTREMITIES: No cyanosis, clubbing or edema. NEUROLOGIC: Generalized weakness. Vent Setting Fraction of Inspired Oxygen pe: 30 Results/Medications Result Diagram: 07/29/18 0504 07/29/18 0504 Results 24 hrs Laboratory Tests Test 07/29/18 05:04 07/29/18 07:00 White Blood Count 4.6 L Red Blood Count 3.47 L Hemoglobin 10.7 L Hematocrit 34.5 L Mean Corpuscular Volume 99.4 Mean Corpuscular Hemoglobin 30.8 Mean Corpuscular Hemoglobin Concent 31.0 L Red Cell Distribution Width 12.5 Platelet Count 198 Mean Platelet Volume 10.5 H Immature Granulocytes % 0.700 H Neutrophils % 67.6 Lymphocytes % 19.0 Monocytes % 9.0 Eosinophils % 2.8 Basophils % 0.9 Nucleated Red Blood Cells % 0.0 Immature Granulocytes # 0.030 Neutrophils # 3.1 Lymphocytes # 0.9 Monocytes # 0.4 Eosinophils # 0.1 Basophils # 0.0 Nucleated Red Blood Cells # 0.0 Sodium Level 143 Potassium Level 4.2 Chloride Level 102 Carbon Dioxide Level 37 H Anion Gap 4 L Blood Urea Nitrogen 22 H Creatinine 0.55 L Est Glomerular Filtrat Rate mL/min Glucose Level 93 Calcium Level 8.7 Phosphorus Level 2.5 Magnesium Level 2.5 Blood Gas Specimen Source Blood arterial Arterial Blood Date Drawn 07/29/2018 7:14:20 AM Arterial Blood pH (Temp corrected) 7.340 L Arterial Blood pCO2 (Temp correct) 82.0 *H Arterial Blood pO2 (Temp corrected) 86.3 Arterial Blood HCO3 43.2 *H Arterial Blood Base Excess 14.1 H Arterial Blood Oxygen Saturation 96.3 Leroy Test ACCEPTAB Arterial Blood Gas Puncture Site Right Radial Arterial Blood Carboxyhemoglobin 0.1 Arterial Blood Methemoglobin 0.3 Blood Gas A-a O2 Differential 31.3 H Oxyhemoglobin Percent 95.9 Blood Gas Temperature 37.0 Blood Gas Modality HFNC FiO2 30.0 Blood Gas Critical Value Read Back RLIM RN Blood Gas Notified Whom TM Blood Gas Notified Time 07/29/2018 7:35:06 AM Medications Current Medications IV Flush (NS 3 ml) 3 ml PER PROTOCOL IV ; Start 07/17/18 at 18:00 Enoxaparin Sodium (Lovenox) 40 mg DAILY SC Last administered on 07/29/18 08:43; Admin Dose 40 MG; Start 07/18/18 at 09:00 Entacapone (Comtan) 200 mg QID GTB Last administered on 07/29/18 08:28; Admin Dose 200 MG; Start 07/17/18 at 21:00 Glycopyrrolate (Robinul) 1 mg BID GTB Last administered on 07/29/18 08:28; Admin Dose 1 MG; Start 07/17/18 at 21:00 Polyethylene Glycol (Miralax) 8.5 gm DAILY PRN GTB NEEDED; Start 07/17/18 at 18:30 Non-Formulary Medication 1 ea DAILY TRANSDERM Last administered on 07/29/18 09:36; Admin Dose 1 EA; Start 07/18/18 at 09:00 Carbidopa/Levodopa (Sinemet (25/ 100)) 2.5 tab BID@1000,1800 GTB Last administered on 07/29/18 09:28; Admin Dose 2.5 TAB; Start 07/18/18 at 10:00 Carbidopa/Levodopa (Sinemet (25/ 100)) 2 tab BID@1400,2200 GTB Last administered on 07/28/18 21:15; Admin Dose 2 TAB; Start 07/17/18 at 22:00 Miscellaneous Information (Pending Santyl Order For Wound Care) This patient florence... PRN PRN XX WOUND CARE; Start 07/18/18 at 08:00 Acetaminophen (Tylenol Tab) 650 mg Q4H PRN PO MILD PAIN(1-3)OR ELEVATED TEMP Last administered on 07/28/18at 13:45; Admin Dose 650 MG; Start 07/21/18 at 10:00 Multivitamins Therapeutic (Theragran) 1 tab DAILY PO Last administered on 07/29/18at 08:29; Admin Dose 1 TAB; Start 07/23/18 at 11:30 Albuterol (Proventil 0.083% (Neb)) 2.5 mg Q3H RESP THERAPY PRN NEB WHEEZING AND SOB Last administered on 07/29/18at 01:24; Admin Dose 2.5 MG; Start 07/23/18 at 18:30 Hydralazine HCl (Apresoline) 10 mg Q4H PRN IV sbp>165; Start 07/24/18 at 13:00 Piperacillin Sod/ Tazobactam Sod 100 ml @ 25 mls/hr TID@02,10,18 IVPB Last administered on 07/29/18at 01:48; Admin Dose 25 MLS/HR; Start 07/27/18 at 12:00 Midodrine (Proamatine) 5 mg Q8 PEG Last administered on 07/29/18at 06:07; Admin Dose 5 MG; Start 07/27/18 at 14:00 Hydralazine HCl (Apresoline) 10 mg Q4H PRN IV HYPERTENSION; Start 07/28/18 at 06:30 Assessment/Plan Hospital Course (Demo Recall) IMP: 1. Acute on chronic hypoxemic and hypercapnic resp insufficiency, mucous plugging likely secondary to right mainstem bronchus improved with chest PT and Mucomyst significant improvement radiographically and clinically. 2. Hypotension and bradycardia--r/o sepsis; consider dysautonomia associated with advanced PD. 3. Aspiration pneumonitis 4. Advanced Parkinson's disease with associated restrictive chest wall dysfunction 5. Possible right pleural effusion versus pneumonia RECS: 1. DC IV fluids 2. Continue tube feeding 3. Continue pulmonary toilet 4. DC planning 5. Family requested palliative care 6. Daytime supplemental O2 and nocturnal noninvasive positive pressure ventilation Patient service from advanced Parkinson's disease that makes it difficult to expel thick secretions on their own. Has had 2 more chest infections this year requiring antibiotic therapy and is unable to do postural drainage positions and richardson coughing to clear his airways. Patient will benefit from chest percussion therapy at home. SANDHYA RODRIGUEZ MD, [facility] Jul 29, 2018 10:30
[2018-07-29] MEDS ORDERED: LIDOCAINE 1% (MPF) 5 ML VIAL SC ONE (11:00)
--- NOTE | 2018-07-29 15:16 | PN ---
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 who presents with respiratory distress and hypoxia Acute on chronic hypercapenic/hypoxic respiratory failure - s/p zosyn x 7 days, restarted on abx 07/27 -Thoracentesis not done secondary to inadequate fluid - Gross aspiration, continue frequent suctioning and chest PT -Continue HFNC 02 for chronic hyperpneic and hypoxic respiratory failure - 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 -> BIPAP - Pulmonary consulted - Tube feeds - Chest percussion -Family requesting new suction device as well as oxygen apparatus Multisystems atrophy vs Parkinsons (unclear diagnosis) - continue home meds with entacapone, sinemet DNR/DNI Prophylaxis: Lovenox DC planning: Anticipate DC home tomorrow Result Diagram: 07/29/18 0504 07/29/18 0504 Results 24hrs Laboratory Tests Test 07/29/18 05:04 07/29/18 07:00 White Blood Count 4.6 L Red Blood Count 3.47 L Hemoglobin 10.7 L Hematocrit 34.5 L Mean Corpuscular Volume 99.4 Mean Corpuscular Hemoglobin 30.8 Mean Corpuscular Hemoglobin Concent 31.0 L Red Cell Distribution Width 12.5 Platelet Count 198 Mean Platelet Volume 10.5 H Immature Granulocytes % 0.700 H Neutrophils % 67.6 Lymphocytes % 19.0 Monocytes % 9.0 Eosinophils % 2.8 Basophils % 0.9 Nucleated Red Blood Cells % 0.0 Immature Granulocytes # 0.030 Neutrophils # 3.1 Lymphocytes # 0.9 Monocytes # 0.4 Eosinophils # 0.1 Basophils # 0.0 Nucleated Red Blood Cells # 0.0 Sodium Level 143 Potassium Level 4.2 Chloride Level 102 Carbon Dioxide Level 37 H Anion Gap 4 L Blood Urea Nitrogen 22 H Creatinine 0.55 L Est Glomerular Filtrat Rate mL/min Glucose Level 93 Calcium Level 8.7 Phosphorus Level 2.5 Magnesium Level 2.5 Blood Gas Specimen Source Blood arterial Arterial Blood Date Drawn 07/29/2018 7:14:20 AM Arterial Blood pH (Temp corrected) 7.340 L Arterial Blood pCO2 (Temp correct) 82.0 *H Arterial Blood pO2 (Temp corrected) 86.3 Arterial Blood HCO3 43.2 *H Arterial Blood Base Excess 14.1 H Arterial Blood Oxygen Saturation 96.3 Leroy Test ACCEPTAB Arterial Blood Gas Puncture Site Right Radial Arterial Blood Carboxyhemoglobin 0.1 Arterial Blood Methemoglobin 0.3 Blood Gas A-a O2 Differential 31.3 H Oxyhemoglobin Percent 95.9 Blood Gas Temperature 37.0 Blood Gas Modality HFNC FiO2 30.0 Blood Gas Critical Value Read Back RLIM RN Blood Gas Notified Whom TM Blood Gas Notified Time 07/29/2018 7:35:06 AM Subjective 24 Hr Interval Summary Subjective hx not possible: pt non-verbal Exam/Review of Systems Exam Vitals Vital Signs Date Temp Pulse Resp B/P (MAP) Pulse Ox O2 O2 Flow FiO2 Time Delivery Rate 07/29/18 Nasal 2.0 13:04 Cannula 07/29/18 67 12:57 07/29/18 42 140/78 94 11:00 (98) 07/29/18 97.9 08:00 07/29/18 30 07:20 Intake and Output 07/28/18 07/28/18 07/29/18 1515:00 23:00 07:00 IntakeIntake Total 820 ml 845 ml 1020 ml OutputOutput Total 760 ml 400 ml 450 ml BalanceBalance 60 ml 445 ml 570 ml Constitutional: non-verbal Respiratory: clear to auscultation Cardiovascular: regular rate and rhythm Gastrointestinal: soft; No distended Musculoskeletal: nl extremities to inspection Results Results 24hrs Laboratory Tests Test 07/29/18 05:04 07/29/18 07:00 White Blood Count 4.6 L Red Blood Count 3.47 L Hemoglobin 10.7 L Hematocrit 34.5 L Mean Corpuscular Volume 99.4 Mean Corpuscular Hemoglobin 30.8 Mean Corpuscular Hemoglobin Concent 31.0 L Red Cell Distribution Width 12.5 Platelet Count 198 Mean Platelet Volume 10.5 H Immature Granulocytes % 0.700 H Neutrophils % 67.6 Lymphocytes % 19.0 Monocytes % 9.0 Eosinophils % 2.8 Basophils % 0.9 Nucleated Red Blood Cells % 0.0 Immature Granulocytes # 0.030 Neutrophils # 3.1 Lymphocytes # 0.9 Monocytes # 0.4 Eosinophils # 0.1 Basophils # 0.0 Nucleated Red Blood Cells # 0.0 Sodium Level 143 Potassium Level 4.2 Chloride Level 102 Carbon Dioxide Level 37 H Anion Gap 4 L Blood Urea Nitrogen 22 H Creatinine 0.55 L Est Glomerular Filtrat Rate mL/min Glucose Level 93 Calcium Level 8.7 Phosphorus Level 2.5 Magnesium Level 2.5 Blood Gas Specimen Source Blood arterial Arterial Blood Date Drawn 07/29/2018 7:14:20 AM Arterial Blood pH (Temp corrected) 7.340 L Arterial Blood pCO2 (Temp correct) 82.0 *H Arterial Blood pO2 (Temp corrected) 86.3 Arterial Blood HCO3 43.2 *H Arterial Blood Base Excess 14.1 H Arterial Blood Oxygen Saturation 96.3 Leroy Test ACCEPTAB Arterial Blood Gas Puncture Site Right Radial Arterial Blood Carboxyhemoglobin 0.1 Arterial Blood Methemoglobin 0.3 Blood Gas A-a O2 Differential 31.3 H Oxyhemoglobin Percent 95.9 Blood Gas Temperature 37.0 Blood Gas Modality HFNC FiO2 30.0 Blood Gas Critical Value Read Back RLIM RN Blood Gas Notified Whom TM Blood Gas Notified Time 07/29/2018 7:35:06 AM Medications Medication Current Medications IV Flush (NS 3 ml) 3 ml PER PROTOCOL IV ; Start 07/17/18 at 18:00 Enoxaparin Sodium (Lovenox) 40 mg DAILY SC Last administered on 07/29/18 08:43; Admin Dose 40 MG; Start 07/18/18 at 09:00 Entacapone (Comtan) 200 mg QID GTB Last administered on 07/29/18 14:31; Admin Dose 200 MG; Start 07/17/18 at 21:00 Glycopyrrolate (Robinul) 1 mg BID GTB Last administered on 07/29/18 08:28; Admin Dose 1 MG; Start 07/17/18 at 21:00 Polyethylene Glycol (Miralax) 8.5 gm DAILY PRN GTB NEEDED; Start 07/17/18 at 18:30 Non-Formulary Medication 1 ea DAILY TRANSDERM Last administered on 07/29/18 09:36; Admin Dose 1 EA; Start 07/18/18 at 09:00 Carbidopa/Levodopa (Sinemet (25/ 100)) 2.5 tab BID@1000,1800 GTB Last administered on 07/29/18 09:28; Admin Dose 2.5 TAB; Start 07/18/18 at 10:00 Carbidopa/Levodopa (Sinemet (25/ 100)) 2 tab BID@1400,2200 GTB Last administered on 07/29/18 14:30; Admin Dose 2 TAB; Start 07/17/18 at 22:00 Miscellaneous Information (Pending Santyl Order For Wound Care) This patient florence... PRN PRN XX WOUND CARE; Start 07/18/18 at 08:00 Acetaminophen (Tylenol Tab) 650 mg Q4H PRN PO MILD PAIN(1-3)OR ELEVATED TEMP Last administered on 07/28/18 13:45; Admin Dose 650 MG; Start 07/21/18 at 10:00 Multivitamins Therapeutic (Theragran) 1 tab DAILY PO Last administered on 07/29/18 08:29; Admin Dose 1 TAB; Start 07/23/18 at 11:30 Albuterol (Proventil 0.083% (Neb)) 2.5 mg Q3H RESP THERAPY PRN NEB WHEEZING AND SOB Last administered on 07/29/18 01:24; Admin Dose 2.5 MG; Start 07/23/18 at 18:30 Hydralazine HCl (Apresoline) 10 mg Q4H PRN IV sbp>165; Start 07/24/18 at 13:00 Piperacillin Sod/ Tazobactam Sod 100 ml @ 25 mls/hr TID@02,10,18 IVPB Last administered on 07/29/18at 10:38; Admin Dose 25 MLS/HR; Start 07/27/18 at 12:00 Midodrine (Proamatine) 5 mg Q8 PEG Last administered on 07/29/18 14:30; Admin Dose 5 MG; Start 07/27/18 at 14:00 Hydralazine HCl (Apresoline) 10 mg Q4H PRN IV HYPERTENSION; Start 07/28/18 at 06:30 DOROTHY BONE Jul 29, 2018 15:16
--- NOTE | 2018-07-29 16:39 | CONS ---
Assessment/Plan Assessment/Plan Hospital Course (Demo Recall) SIRS/Sepsis Labile blood pressure Labile heart rate with episodes of bradycardia Mucous plugging/aspiration pneumonitis History of preserved left ventricular ejection fraction Severe Parkinson's -Patient admitted with respiratory pathology including mucous plugging and possible aspiration pneumonia. -Respiratory status continues to improve and patient titrated down to nasal cannula. Tentative plan for discharge tomorrow. -Continue Midodrine as needed Consultation Date/Type/Reason Admit Date/Time Jul 17, 2018 at 17:22 Initial Consult Date Type of Consult Cardiology Date/Time of Note DATE: 07/29/18 TIME: 16:38 24 HR Interval Summary Free Text/Dictation Patient with progressive improvement respiratory status. Currently on nasal cannula Exam/Review of Systems Vital Signs Vitals Vital Signs Date Temp Pulse Resp B/P (MAP) Pulse Ox O2 O2 Flow FiO2 Time Delivery Rate 07/29/18 58 16:17 07/29/18 98.5 25 125/70 97 15:37 (88) 07/29/18 3.0 27 15:14 07/29/18 Nasal 13:04 Cannula Intake and Output 07/28/18 07/28/18 07/29/18 1515:00 23:00 07:00 IntakeIntake Total 820 ml 845 ml 1020 ml OutputOutput Total 760 ml 400 ml 450 ml BalanceBalance 60 ml 445 ml 570 ml Exam Constitutional: alert (No apparent distress, family bedside) Head: normocephalic Respiratory: other (Coarse breath sounds bilaterally, no wheezing) Cardiovascular: regular rate and rhythm (S1-S2 heard) Gastrointestinal: soft, non-tender, bowel sounds Extremities: other (No significant edema) Labs Result Diagram: 07/29/18 0504 07/29/18 0504 Results 24hrs Laboratory Tests Test 07/29/18 05:04 07/29/18 07:00 White Blood Count 4.6 L Red Blood Count 3.47 L Hemoglobin 10.7 L Hematocrit 34.5 L Mean Corpuscular Volume 99.4 Mean Corpuscular Hemoglobin 30.8 Mean Corpuscular Hemoglobin Concent 31.0 L Red Cell Distribution Width 12.5 Platelet Count 198 Mean Platelet Volume 10.5 H Immature Granulocytes % 0.700 H Neutrophils % 67.6 Lymphocytes % 19.0 Monocytes % 9.0 Eosinophils % 2.8 Basophils % 0.9 Nucleated Red Blood Cells % 0.0 Immature Granulocytes # 0.030 Neutrophils # 3.1 Lymphocytes # 0.9 Monocytes # 0.4 Eosinophils # 0.1 Basophils # 0.0 Nucleated Red Blood Cells # 0.0 Sodium Level 143 Potassium Level 4.2 Chloride Level 102 Carbon Dioxide Level 37 H Anion Gap 4 L Blood Urea Nitrogen 22 H Creatinine 0.55 L Est Glomerular Filtrat Rate mL/min Glucose Level 93 Calcium Level 8.7 Phosphorus Level 2.5 Magnesium Level 2.5 Blood Gas Specimen Source Blood arterial Arterial Blood Date Drawn 07/29/2018 7:14:20 AM Arterial Blood pH (Temp corrected) 7.340 L Arterial Blood pCO2 (Temp correct) 82.0 *H Arterial Blood pO2 (Temp corrected) 86.3 Arterial Blood HCO3 43.2 *H Arterial Blood Base Excess 14.1 H Arterial Blood Oxygen Saturation 96.3 Leroy Test ACCEPTAB Arterial Blood Gas Puncture Site Right Radial Arterial Blood Carboxyhemoglobin 0.1 Arterial Blood Methemoglobin 0.3 Blood Gas A-a O2 Differential 31.3 H Oxyhemoglobin Percent 95.9 Blood Gas Temperature 37.0 Blood Gas Modality HFNC FiO2 30.0 Blood Gas Critical Value Read Back RLIM RN Blood Gas Notified Whom TM Blood Gas Notified Time 07/29/2018 7:35:06 AM Medications Medications Current Medications IV Flush (NS 3 ml) 3 ml PER PROTOCOL IV ; Start 07/17/18 at 18:00 Enoxaparin Sodium (Lovenox) 40 mg DAILY SC Last administered on 07/29/18at 08:43; Admin Dose 40 MG; Start 07/18/18 at 09:00 Entacapone (Comtan) 200 mg QID GTB Last administered on 07/29/18at 14:31; Admin Dose 200 MG; Start 07/17/18 at 21:00 Glycopyrrolate (Robinul) 1 mg BID GTB Last administered on 07/29/18at 08:28; Admin Dose 1 MG; Start 07/17/18 at 21:00 Polyethylene Glycol (Miralax) 8.5 gm DAILY PRN GTB NEEDED; Start 07/17/18 at 18:30 Non-Formulary Medication 1 ea DAILY TRANSDERM Last administered on 07/29/18at 09:36; Admin Dose 1 EA; Start 07/18/18 at 09:00 Carbidopa/Levodopa (Sinemet (25/ 100)) 2.5 tab BID@1000,1800 GTB Last administered on 07/29/18 09:28; Admin Dose 2.5 TAB; Start 07/18/18 at 10:00 Carbidopa/Levodopa (Sinemet (25/ 100)) 2 tab BID@1400,2200 GTB Last admini stered on 07/29/18at 14:30; Admin Dose 2 TAB; Start 07/17/18 at 22:00 Miscellaneous Information (Pending Santyl Order For Wound Care) This patient florence... PRN PRN XX WOUND CARE; Start 07/18/18 at 08:00 Acetaminophen (Tylenol Tab) 650 mg Q4H PRN PO MILD PAIN(1-3)OR ELEVATED TEMP Last administered on 07/28/18at 13:45; Admin Dose 650 MG; Start 07/21/18 at 10:00 Multivitamins Therapeutic (Theragran) 1 tab DAILY PO Last administered on 07/29/18at 08:29; Admin Dose 1 TAB; Start 07/23/18 at 11:30 Albuterol (Proventil 0.083% (Neb)) 2.5 mg Q3H RESP THERAPY PRN NEB WHEEZING AND SOB Last administered on 07/29/18at 01:24; Admin Dose 2.5 MG; Start 07/23/18 at 18:30 Hydralazine HCl (Apresoline) 10 mg Q4H PRN IV sbp>165; Start 07/24/18 at 13:00 Piperacillin Sod/ Tazobactam Sod 100 ml @ 25 mls/hr TID@02,10,18 IVPB Last administered on 07/29/18at 10:38; Admin Dose 25 MLS/HR; Start 07/27/18 at 12:00 Midodrine (Proamatine) 5 mg Q8 PEG Last administered on 07/29/18at 14:30; Admin Dose 5 MG; Start 07/27/18 at 14:00 Hydralazine HCl (Apresoline) 10 mg Q4H PRN IV HYPERTENSION; Start 07/28/18 at 06:30 Sukumar Moore DO Jul 29, 2018 16:39
[2018-07-29] MEDS: HYDROCORTISONE 1% 28 GM CR TOP SCH (21:45)
[2018-07-29] MEDS: ACETAMINOPHEN 325 MG TAB PO PRN (21:46)
[2018-07-30] VITALS (11 sets, daily range): BP systolic 100–144; BP diastolic 56–76; PULSE 46–71; RESP 18–23
[2018-07-30] MEDS: PIPER-TAZO 3.375 GM IV (PMX) 100 ML IVPB SCH ×3 (02:53→18:22)
[2018-07-30] MEDS: MIDODRINE 5 MG TAB PEG SCH ×2 (06:28→13:11)
[2018-07-30] MEDS: ROTIGOTINE TRANSDERM SCH (09:00)
[2018-07-30] MEDS: CARBIDOPA/LEVODOPA (25/100) TAB GTB SCH ×3 (09:34→17:50)
[2018-07-30] MEDS: GLYCOPYRROLATE 1 MG TAB GTB SCH (09:34)
[2018-07-30] MEDS: MULTIVITAMINS THERAPEUTIC TAB PO SCH (09:35)
[2018-07-30] MEDS: BALSAM PERU/CASTOR OIL 60 GM TUBE TOP SCH (09:35)
[2018-07-30] MEDS: ENTACAPONE 200 MG TAB GTB SCH ×3 (09:35→17:49)
[2018-07-30] MEDS: HYDROCORTISONE 1% 28 GM CR TOP SCH (09:35)
[2018-07-30] MEDS: ENOXAPARIN 40 MG/0.4 ML SYG SC SCH (09:42)
[2018-07-30] MEDS: ACETAMINOPHEN 325 MG TAB PO PRN (10:34)
--- NOTE | 2018-07-30 11:53 | CONS ---
Consult Date/Type/Reason Admit Date/Time Jul 17, 2018 at 17:22 Initial Consult Date Type of Consult Pulmonary Date/Time of Note DATE: 07/30/18 TIME: 11:52 Subjective Remains comfortable on 2 L nasal cannula this morning. Minimal secretions. Remains awake and alert but not following commands. Family at bedside. Objective Vital Signs Date Temp Pulse Resp B/P (MAP) Pulse Ox O2 O2 Flow FiO2 Time Delivery Rate 07/30/18 64 08:00 07/30/18 98.6 18 136/72 99 Nasal 07:11 (93) Cannula 07/30/18 2.0 05:20 07/30/18 28 05:20 Intake and Output 07/29/18 07/29/18 07/30/18 1515:00 23:00 07:00 IntakeIntake Total 490 ml 600 ml 1000 ml OutputOutput Total 365 ml 700 ml 600 ml BalanceBalance 125 ml -100 ml 400 ml Exam GENERAL: Frail elderly gentleman on nasal cannula O2 VITAL SIGNS: per chart NECK: Supple. No JVD or lymphadenopathy. CARDIAC EXAM: S1, S2. No added sounds or murmurs. CHEST: Diminished air entry bilaterally ABDOMEN: Soft, nontender. No guarding or rebound. EXTREMITIES: No cyanosis, clubbing or edema. NEUROLOGIC: Generalized weakness. Vent Setting Fraction of Inspired Oxygen pe: 28 Results/Medications Result Diagram: 07/29/18 0504 07/29/18 0504 Medications Current Medications IV Flush (NS 3 ml) 3 ml PER PROTOCOL IV ; Start 07/17/18 at 18:00 Enoxaparin Sodium (Lovenox) 40 mg DAILY SC Last administered on 07/30/18at 09:42; Admin Dose 40 MG; Start 07/18/18 at 09:00 Entacapone (Comtan) 200 mg QID GTB Last administered on 07/30/18at 09:35; Admin Dose 200 MG; Start 07/17/18 at 21:00 Glycopyrrolate (Robinul) 1 mg BID GTB Last administered on 07/30/18at 09:34; Admin Dose 1 MG; Start 07/17/18 at 21:00 Polyethylene Glycol (Miralax) 8.5 gm DAILY PRN GTB NEEDED; Start 07/17/18 at 18:30 Non-Formulary Medication 1 ea DAILY TRANSDERM Last administered on 07/29/18 09:36; Admin Dose 1 EA; Start 07/18/18 at 09:00 Carbidopa/Levodopa (Sinemet (25/ 100)) 2.5 tab BID@1000,1800 GTB Last administered on 07/30/18 09:34; Admin Dose 2.5 TAB; Start 07/18/18 at 10:00 Carbidopa/Levodopa (Sinemet (25/ 100)) 2 tab BID@1400,2200 GTB Last administered on 07/29/18 21:45; Admin Dose 2 TAB; Start 07/17/18 at 22:00 Miscellaneous Information (Pending Santyl Order For Wound Care) This patient florence... PRN PRN XX WOUND CARE; Start 07/18/18 at 08:00 Acetaminophen (Tylenol Tab) 650 mg Q4H PRN PO MILD PAIN(1-3)OR ELEVATED TEMP Last administered on 07/30/18 10:34; Admin Dose 650 MG; Start 07/21/18 at 10:00 Multivitamins Therapeutic (Theragran) 1 tab DAILY PO Last administered on 07/30/18 09:35; Admin Dose 1 TAB; Start 07/23/18 at 11:30 Albuterol (Proventil 0.083% (Neb)) 2.5 mg Q3H RESP THERAPY PRN NEB WHEEZING AND SOB Last administered on 07/29/18 01:24; Admin Dose 2.5 MG; Start 07/23/18 at 18:30 Hydralazine HCl (Apresoline) 10 mg Q4H PRN IV sbp>165; Start 07/24/18 at 13:00 Piperacillin Sod/ Tazobactam Sod 100 ml @ 25 mls/hr TID@02,10,18 IVPB Last administered on 07/30/18 09:34; Admin Dose 25 MLS/HR; Start 07/27/18 at 12:00 Midodrine (Proamatine) 5 mg Q8 PEG Last administered on 07/30/18 06:28; Admin Dose 5 MG; Start 07/27/18 at 14:00 Hydralazine HCl (Apresoline) 10 mg Q4H PRN IV HYPERTENSION; Start 07/28/18 at 06:30 Hydrocortisone (Hydrocortisone 1% Cr) 1 applic BID TOP Last administered on 3/27/19at 09:35; Admin Dose 1 APPLIC; Start 07/29/18 at 21:00 Assessment/Plan Hospital Course (Demo Recall) iMP: 1. Acute on chronic hypoxemic and hypercapnic resp insufficiency, mucous plugging likely secondary to right mainstem bronchus improved with chest PT and Mucomyst significant improvement radiographically and clinically. 2. Hypotension and bradycardia--r/o sepsis; consider dysautonomia associated with advanced PD. 3. Aspiration pneumonitis 4. Advanced Parkinson's disease with associated restrictive chest wall dysfunction 5. Possible right pleural effusion versus pneumonia RECS: 1. Aspiration precautions 2. Continue tube feeding 3. Continue pulmonary toilet 4. Home today with supplemental O2 percussion vest noninvasive positive pressure ventilation at night. And palliative care evaluation. Follow-up with me in the office in 2 weeks. SANDHYA RODRIGUEZ MD, [facility] Jul 30, 2018 11:53
--- NOTE | 2018-07-30 13:12 | CONS ---
Assessment/Plan Assessment/Plan Hospital Course (Demo Recall) SIRS/Sepsis Labile blood pressure Labile heart rate with episodes of bradycardia Mucous plugging/aspiration pneumonitis History of preserved left ventricular ejection fraction Severe Parkinson's -Patient admitted with respiratory pathology including mucous plugging and possible aspiration pneumonia. -Respiratory status continues to improve and patient titrated down to nasal cannula. Tentative plan for discharge today. -Continue Midodrine as needed Consultation Date/Type/Reason Admit Date/Time Jul 17, 2018 at 17:22 Initial Consult Date Type of Consult Cardiology Date/Time of Note DATE: 07/30/18 TIME: 13:09 24 HR Interval Summary Free Text/Dictation Overall doing better. Undergoing PICC line and plan for discharge today home Exam/Review of Systems Vital Signs Vitals Vital Signs Date Temp Pulse Resp B/P (MAP) Pulse Ox O2 O2 Flow FiO2 Time Delivery Rate 07/30/18 98.5 62 22 135/76 96 Nasal 2.0 12:00 (95) Cannula 07/30/18 28 05:20 Intake and Output 07/29/18 07/29/18 07/30/18 1515:00 23:00 07:00 IntakeIntake Total 490 ml 600 ml 1000 ml OutputOutput Total 365 ml 700 ml 600 ml BalanceBalance 125 ml -100 ml 400 ml Exam Constitutional: alert (No apparent distress, undergoing PICC line placement) Respiratory: other (Coarse breath sounds bilaterally, no wheezing) Cardiovascular: regular rate and rhythm (s1s2) Gastrointestinal: soft, non-tender, bowel sounds Extremities: edema (Trace) Labs Result Diagram: 07/29/18 0504 07/29/18 0504 Medications Medications Current Medications IV Flush (NS 3 ml) 3 ml PER PROTOCOL IV ; Start 07/17/18 at 18:00 Enoxaparin Sodium (Lovenox) 40 mg DAILY SC Last administered on 07/30/18at 09:42; Admin Dose 40 MG; Start 07/18/18 at 09:00 Entacapone (Comtan) 200 mg QID GTB Last administered on 07/30/18at 09:35; Admin Dose 200 MG; Start 07/17/18 at 21:00 Glycopyrrolate (Robinul) 1 mg BID GTB Last administered on 07/30/18at 09:34; Admin Dose 1 MG; Start 07/17/18 at 21:00 Polyethylene Glycol (Miralax) 8.5 gm DAILY PRN GTB NEEDED; Start 07/17/18 at 18:30 Non-Formulary Medication 1 ea DAILY TRANSDERM Last administered on 07/29/18 09:36; Admin Dose 1 EA; Start 07/18/18 at 09:00 Carbidopa/Levodopa (Sinemet (25/ 100)) 2.5 tab BID@1000,1800 GTB Last administered on 07/30/18 09:34; Admin Dose 2.5 TAB; Start 07/18/18 at 10:00 Carbidopa/Levodopa (Sinemet (25/ 100)) 2 tab BID@1400,2200 GTB Last administered on 07/29/18 21:45; Admin Dose 2 TAB; Start 07/17/18 at 22:00 Miscellaneous Information (Pending [facility] Order For Wound Care) This patient florence... PRN PRN XX WOUND CARE; Start 07/18/18 at 08:00 Acetaminophen (Tylenol Tab) 650 mg Q4H PRN PO MILD PAIN(1-3)OR ELEVATED TEMP Last administered on 07/30/18 10:34; Admin Dose 650 MG; Start 07/21/18 at 10:00 Multivitamins Therapeutic (Theragran) 1 tab DAILY PO Last administered on 07/30/18 09:35; Admin Dose 1 TAB; Start 07/23/18 at 11:30 Albuterol (Proventil 0.083% (Neb)) 2.5 mg Q3H RESP THERAPY PRN NEB WHEEZING AND SOB Last administered on 07/29/18 01:24; Admin Dose 2.5 MG; Start 07/23/18 at 18:30 Hydralazine HCl (Apresoline) 10 mg Q4H PRN IV sbp>165; Start 07/24/18 at 13:00 Piperacillin Sod/ Tazobactam Sod 100 ml @ 25 mls/hr TID@02,10,18 IVPB Last administered on 07/30/18 09:34; Admin Dose 25 MLS/HR; Start 07/27/18 at 12:00 Midodrine (Proamatine) 5 mg Q8 PEG Last administered on 07/30/18 06:28; Admin Dose 5 MG; Start 07/27/18 at 14:00 Hydralazine HCl (Apresoline) 10 mg Q4H PRN IV HYPERTENSION; Start 07/28/18 at 06:30 Hydrocortisone (Hydrocortisone 1% Cr) 1 applic BID TOP Last administered on 07/30/18at 09:35; Admin Dose 1 APPLIC; Start 07/29/18 at 21:00 Sukumar Moore DO Jul 30, 2018 13:12
[2018-07-30] MEDS ORDERED: LEVO500T10 PO (13:56)
--- NOTE | 2018-07-30 14:02 | DS ---
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 Patient was recently placed on Zosyn times 7 days for concern of aspiration pneumonia, antibiotics were restarted on July 27 patient continued to have a story failure. Patient require high flow and was ultimately weaned down back to regular nasal cannula. Patient was seen by pulmonology, family requested new suction apparatus as well as a new continuous oxygen delivery apparatus which was arranged by case management. Pulmonology also ordered for a chest percussion vest, family requested PICC line to be placed in case it needs IV fluids or antibiotics in the future. workers compensation manager [facility] at home which was arranged. Patient was stable for DC on the day of discharge patient's vitals, labs of exam are stable. Home Meds Active Scripts Levofloxacin* (Levofloxacin*) 500 Mg Tablet, 500 MG PO DAILY, #14 TAB 1 Refill Prov:DOROTHY BONE 07/30/18 Reported Medications [Vitamin C] No Conflict Check, 1000 MG GTB DAILY 07/17/18 Ibuprofen* (Ibuprofen*) 200 Mg Capsule, 800 MG GTB QHS PRN for PAIN, CAP 07/17/18 Rotigotine (NEUPRO) 1 Each Patch.td24, 1 EACH TD DAILY 6MG 07/17/18 Polyethylene Glycol* (Miralax*) 17 Gm Powd.pack, 8.5 GM GTB DAILY PRN for NEEDED, #30 PACKET 07/17/18 Baclofen* (Baclofen*) 10 Mg Tablet, 10 MG GTB TID, TAB TAKE 5MG-QAM AND 5MG-QPM, 15MG-QHS 07/17/18 Glycopyrrolate* (Glycopyrrolate*) 1 Mg Tablet, 1 MG GTB BID, TAB 07/17/18 Albuterol Sulfate* (Albuterol Sulfate* Neb) 0.083%-3 Ml Neb, 2.5 MG NEB Q3H PRN for WHEEZING AND SOB, #30 VIAL 07/17/18 Entacapone* (Entacapone*) 200 Mg Tablet, 200 MG GTB QID, TAB 07/17/18 Aspirin* (Aspirin* EC) 81 Mg Tablet.dr, 81 MG GTB DAILY, TAB 07/17/18 Carbidopa/Levodopa (CARBIDOPA-LEVO 25-100 MG ODT) 1 Each Tab.rapdis, 2.5 TAB GTB BID, #90 TAB 10-AM AND 6-PM 07/17/18 Carbidopa/Levodopa (CARBIDOPA-LEVO 25-100 MG ODT) 1 Each Tab.rapdis, 2 TAB GTB BID, #120 TAB 2-PM AND 10-PM 07/17/18 Follow-up Plan Follow with PCP, pulmonology and home health as well as [facility] for palliative care Primary Care Provider Not On Staff Doctor Time spent on discharge: > 30 minutes DOROTHY BONE Jul 30, 2018 14:02
== END 2018-07-30 18:50 | disposition home health service (06) | DRG 189 ==
LOC: E/R 14:56 → 6WM 17:22 → ICU 07-23 12:45 → 6WM 07-29 11:55
PROVIDERS: ADMIT Internal Medicine; ATTEND Internal Medicine
PROC: 4A133R1 Monitoring of Arterial Saturation, Peripheral, Percutaneous Approach (ICD-10-PCS; 2018-07-17)
PROC: 5A09557 Assistance with Respiratory Ventilation, Greater than 96 Consecutive Hours, Continuous Positive Airway Pressure (ICD-10-PCS; principal; 2018-07-18)
PROC: 02HV33Z Insertion of Infusion Device into Superior Vena Cava, Percutaneous Approach (ICD-10-PCS; 2018-07-30)
DX: J96.22 Acute and chronic respiratory failure with hypercapnia (principal); J69.0 Pneumonitis due to inhalation of food and vomit; A41.9 Sepsis, unspecified organism; T17.590A Other foreign object in bronchus causing asphyxiation, initial encounter; J96.21 Acute and chronic respiratory failure with hypoxia; G20 Parkinson's disease; F02.80 Dementia in other diseases classified elsewhere, unspecified severity, without behavioral disturbance, psychotic disturbance, mood disturbance, and anxiety; I10 Essential (primary) hypertension; J44.9 Chronic obstructive pulmonary disease, unspecified; I95.9 Hypotension, unspecified; R00.1 Bradycardia, unspecified; M62.59 Muscle wasting and atrophy, not elsewhere classified, multiple sites; R13.10 Dysphagia, unspecified; X58.XXXA Exposure to other specified factors, initial encounter; Z66 Do not resuscitate; Z87.891 Personal history of nicotine dependence; Z93.1 Gastrostomy status; Z79.82 Long term (current) use of aspirin; Z79.899 Other long term (current) drug therapy
CPT/HCPCS: 36415; 36569; 36600; 71045; 71275; 76604; 76937; 80048; 80053; 81001; 82533; 82803; 82962; 83036; 83605; 83735; 84100; 84443; 84484; 85025; 85610; 85730; 87040; 87081; 87086; 93005; 94640; 94660; 94664; 94667; 94668; 94669; J1650; J2543; J2920; J7030; J7040; J7120; P9047; Q9967